=== PATIENT | female | born 1955 | race African-American/Black ===

== ENCOUNTER 2022-04-12 09:44 | Outpatient (CLI) | payer OTHER, SELFPAY ==
--- NOTE | 2022-04-12 16:04 | WPDPFTINT ---
PFT Procedure Performed PFT Procedure Performed Spirometry with Pre/Post Bronchodilator Plethysmography (Lung Vol) Diffusing Cap (DLCO) Flow Vol Loop PFT Interpretation This is a pulmonary function test with pre and post-bronchodilator spirometry, plethysmography and diffusing capacity. The test was performed and results interpreted in accordance with the 2019 and 2005 ATS/ERS Task Force guidelines respectively using the Global Lung Function Initiative-2012 reference equations. Patient demonstrated good effort and cooperation. Reproducibility criteria were met. The quality of the pre bronchodilator spirometry maneuver was Grade A and post bronchodilator spirometry maneuver was Grade A. Findings: Spirometry: The contour the inspiratory and expiratory flow tracing are normal. The pre bronchodilator FVC is 2.44 L, 91% predicted. The pre bronchodilator FEV1 is 1.90 L, 91% predicted. The pre bronchodilator FEV1: FVC ratio is 78%. The post bronchodilator FVC is 2.56 L, representing a 5% increase. The post bronchodilator FEV1 is 1.98 L, representing a 4% increase. The post bronchodilator FEV1: FVC ratio 77%. Plethysmography: The total lung capacity is 5.08, 107% predicted. The functional residual capacity is 2.66 L, 88% predicted. The residual volume is 2.46 L, 117% predicted. Diffusing capacity: The diffusion capacity unadjusted for hemoglobin and carboxyhemoglobin is 16.4, 76% predicted. The diffusing capacity adjusted for alveolar volume is 3.96, 94% predicted. Impression: The spirometry is normal without evidence of an obstructive abnormality. There is no significant improvement after inhaling a single dose of albuterol. The lung volumes are normal. The diffusing capacity is normal. There are no prior studies for comparison
== END 2022-04-12 09:45 | disposition home or self-care (01) ==
PROVIDERS: PCP Physician Assistant; Visit Provider Physician Assistant
DX: Z01.818 Encounter for other preprocedural examination (principal)
CPT/HCPCS: 94060; 94726; 94729

== ENCOUNTER 2022-11-16 10:00 | Outpatient (RCR) | payer OTHER, SELFPAY ==
--- NOTE | 2022-10-09 17:00 | STOPEVAL1 ---
Assessment and note entered by Paula Roque, PLATER APPRENTICE Assessment ST Clinical Summary VOICE EVALUATION Patient reported a hoarse, raspy voice for the past four to six months. She reports preence of a goiter and unsure if that is related to her voice issue. Patient spoke throughout this evaluation, rarely leaving much time for therapist to speak although she reports she does not talk frequently at home unless her children are visiting. Patient presents with moderate dysphonia characterized as a hoarse, raspy vocal quality. Vocal loudness is judged to be within normal range however patient's pitch range in general is 141- 198 with average at 163 Hz which is judged to be lower than expected for age and sex as female voice with average range equaling 165-255 Hz. Patient was instructed in the use of a vocal hygiene program to reduce negative vocal behaviors, and in a gastroesophageal reflux disease guidelines to reduce risk for reflux affecting vocal cords. Patient was also instructed in the use of exercises to facilitate vocal cord and overall relaxation. Patient will be seen one time per week for four weeks to address use of easy onset and easy breathing to reduce vocal cord tension in order to improve vocal quality. Plan of Care Interventions Treatment of Voice ST Services Indicated Yes Treatment Frequency and 1xwk/4weeks Duration These treatments will address the objective and functional deficits as defined above. The patient will be advanced safely and appropriately in order for the patient to progress towards his/her prior level of function. Additional exercises will be introduced and as well as a comprehensive home exercise program upon discharge, if needed, ?to ensure carryover of functional gains achieved in the clinic. This treatment plan has been reviewed and agreement upon by the patient.
--- NOTE | 2022-10-25 14:42 | PCSTNOTE ---
Patient has either rescheduled or cancelled evaluation appointments prior to initial evaluation and treatment sessions following the initial evaluation. She asked to come one time weekly and was scheduled as such but has been noncompliant with the frequency she asked for/scheduled for. She is on schedule for next Saturday which will essentially be four weeks/one month after the initial evaluation with no treatment in between. Therapist will contact patient at the beginning of next week to discuss attendance and possible discharge.
--- NOTE | 2022-11-16 12:27 | STOPDC ---
Assessment and note entered by Paula Roque CAUL FAT PULLER Evaluation Information Assessment Status Progress Reported Pain Level Pain Score 0: Self Report Assessment ST Clinical Summary Patient was seen for an initial voice evaluation on 10/08. She has returned for one follow up visit and then today. At the time of the initial evaluation, she was instructed in the use of a vocal hygiene program, guidelines to reduce/manage gastroesophageal reflux, and vocal/upper body relaxation techniques to reduce stress on the vocal cords. She was requested to attend sessions one time weekly however she reported she has difficulty with transportation. She was unable to attend again until 11/02. At that time she was instructed to use the yawn-sigh technique of inhalation, exhalation, then phonation for h words in order to reduce the stress on the vocal cords. Patient exhibited good ability to complete this upon her return for the last visit. On last visit, she was instructed in how to use the yawn- sign technique for other consonant-vowel words and she exhibited good ability to apply this technique to those. She was discharged with all goals achieved. Plan of Care ST Services Indicated No
== END 2022-12-24 09:59 | disposition home or self-care (01) ==
LOC: ANHST 10:00
PROVIDERS: PCP Physician Assistant; Visit Provider Otolaryngology
DX: R49.0 Dysphonia (principal)
CPT/HCPCS: 92507; 92524

== ENCOUNTER 2023-02-09 16:11 | Emergency (ER) | payer OTHER, SELFPAY ==
[2023-02-09] VITALS (15 sets, daily range): BP systolic 122–135; BP diastolic 72–90; PULSE 64–83; RESP 13–32; TEMP 36.6; O2SAT 95–100
--- NOTE | ~2023-02-09 | CT_ITS ---
EXAMINATION: CT abdomen pelvis w con DATE: 02/09/2023 17:49 INDICATION: LLQ pain TECHNIQUE: Computed tomography (CT) of the abdomen and pelvis was performed with 100 mL Omnipaque-350 intravenous contrast. Automated exposure control and iterative reconstruction technique were employe d. The dose-length product was 1764.40 mGy-cm. COMPARISON: None. FINDINGS: Lower thorax: Bibasilar scar/atelectasis. Moderate hiatal hernia. Liver: Normal. Biliary/Gallbladder: Gallbladder is absent. Mild intra and extrahepatic bile duct dilation, no obstru cting stone or mass. Pancreas: Mild atrophy Spleen: Normal. Adrenals:No mass. Kidneys: Simple left midpole cyst. Bilateral cortical atrophy. No suspicious mass, obstructing stone, or hydronephrosis. GI tract: No small or large bowel dilation. Normal appendix. Minimal diverticulosis without diverticu litis. Mesentery/Peritoneum: No ascites, mass, or free air. Retroperitoneum: No mass. Mild atherosclerotic abdominal aortic and/or arterial calcifications. Pelvis: Mild bladder wall thickening. 13 mm hypodensity in the uterine fundus. Soft Tissues: Small uncomplicated fat-containing umbilical hernia. Bones: No acute osseous finding. IMPRESSION: Mild intra and extrahepatic bile duct dilation, likely secondary to prior cholecystectomy, unless acc ompanied by right upper quadrant pain or biliary labs abnormalities. Mild bladder wall thickening may be secondary to inadequate distention or cystitis. 13 mm hypodensity in the uterine fundus, possible fibroid polyp or endometrial fluid, consider transa bdominal and transvaginal ultrasound for further evaluation. Reviewed, dictated and finalized at location K. IMPRESSION: Mild intra and extrahepatic bile duct dilation, likely secondary to prior matteo cystectomy, unless accompanied by right upper quadrant pain or biliary labs abn ormalities. Mild bladder wall thickening may be secondary to inadequate distention or cysti tis. 13 mm hypodensity in the uterine fundus, possible fibroid polyp or endometrial fluid, consider transabdominal and transvaginal ultrasound for further evaluati on.
[2023-02-09 17:04] LABS: Basophils Percent Auto 0.4 % (0.2-1.2); Eosinophils Absolute Auto 0.1 K/mm3 (0-0.3); Eosinophils Percent Auto 2.4 % (0-4.4); Hematocrit 37.5 % (37.0-47.0); Hemoglobin 12.3 g/dL (12.0-15.0); Immature Granulocyte Absolute 0.01 K/mm3 (0.00-0.031); Immature Granulocyte Percent A 0.2 % (0-0.5); Lymphocytes Absolute Auto 1.09 K/mm3 (0.9-3.2); Lymphocytes Percent Auto 24.2 % (18.3-44.2); Mean Corpuscular HGB Conc 32.8 g/dl (32-36); Mean Corpuscular Hemoglobin 27.3 pg (26-34); Mean Corpuscular Volume 83.1 fl (80-100); Mean Platelet Volume 9.3 fl (7.4-10.4); Monocytes Absolute Auto 0.6 K/mm3 (0.1-0.6); Monocytes Percent Auto 12.2 % (2.6-8.5); Neutrophils Absolute Auto 2.7 K/mm3 (1.3-6.7); Neutrophils Percent Auto 60.6 % (45.5-73.1); Platelet Count Result 281 k/mm3 (150-375); Red Blood Count 4.51 M/mm3 (4.2-5.4); Red Cell Distribution Width 15.3 % (11.5-14.5); White Blood Count 4.5 K/mm3 (4.5-10.0)
--- NOTE | 2023-02-09 17:08 | ED.GIBLEED ---
HPI - GI Bleed General Chief complaint: GI Bleed Stated complaint: blood in stool since Time Seen by Provider: 02/09/23 16:36 History of Present Illness HPI Narrative: 67-year-old female presented to the emergency department for evaluation of a GI bleed. Patient states she does take Eliquis for prior history of pulmonary embolism. Patient does have a prior history of hemorrhoids. Patient states that she did have some blood in her stool and also had a bowel movement on Saturday during which she noted she had some cold. Patient has not had any problems today and denies any bleeding. Patient did hold her Eliquis last night. Related Data Home Medications Medication Instructions Recorded Confirmed No Home Medications 09/02/22 09/02/22 Allergies Allergy/AdvReac Type Severity Reaction Status Date / Time Penicillins Allergy Hives Verified 02/09/23 16:22 Review of Systems Review of Systems: All systems reviewed & are unremarkable except as noted in HPI and below PMFSH Social History Social History (System 10/15/22 @ 15:23 by Kemi Velez) Smoking status: Never smoker Alcohol intake: never Substance use: never Lack of Transportation: YES Lack of Food: Never True Current Housing: I Have Housing Concerned About Future Housing: No Difficulty Paying Gas/Electric Bills: No Difficulty Paying for Meds: No Currently Unemployed: No Education: Don't Know Difficulty w/ Childcare or Family Care: No Exam Narrative: APPEARANCE: Well appearing, no pain, no distress, well-nourished. HEAD: normocephalic, atraumatic. EYES: PERRLA/EOMI, conjunctivae clear. NOSE: Normal no drainage NECK: Supple. No adenopathy, no masses. RESPIRATORY: Airway patent, respirations nonlabored. Clear to auscultation bilaterally, no rales, rhonchi, wheezing. CARDIOVASCULAR: Regular rate and rhythm without murmurs rubs or gallops. ABDOMINAL: Soft, nontender, nondistended, normal bowel sounds MUSCULOSKELETAL: Moves all extremities. Strength/ROM intact, No edema, No calf tenderness. Pelvic exam: No active vaginal bleeding NEURO: Alert. Cranial nerves II through XII intact. Grossly intact SKIN: Warm, dry. Normal Color Course Course Emergency Course: 67-year-old female presented to the emergency department for evaluation of blood in her stool. Patient has had no blood in her stool today. Patient is afebrile not tachycardic and normotensive. Patient was Hemoccult negative on the CH[facility]. Patient also had no vaginal bleeding Patient was offered a pelvic ultrasound for the morning or to have follow-up with her own CALCULATING MACHINE OPERATOR and patient preferred to have the ultrasound tomorrow morning and then have outpatient follow-up with her CALCULATING MACHINE OPERATOR on Saturday. Patient was not tachycardic patient was normotensive patient had a stable hemoglobin and patient no active vaginal bleeding and was Hemoccult negative. Vital Signs Vital signs: Vital Signs Temperature 97.8 F 02/09/23 16:13 Pulse Rate 72 02/09/23 16:13 Respiratory Rate 18 02/09/23 16:13 Blood Pressure 135/85 02/09/23 16:13 Pulse Oximetry 98 02/09/23 16:13 Oxygen Delivery Room Air 02/09/23 16:13 Temperature 97.8 F 02/09/23 16:13 Pulse Rate 75 02/09/23 18:15 Respiratory Rate 13 02/09/23 18:15 Blood Pressure 133/72 02/09/23 17:17 Pulse Oximetry 98 02/09/23 18:58 Oxygen Delivery Room Air 02/09/23 16:13 MDM - GI Bleed Differential Diagnosis Differential diagnosis: Likely hemorrhoids, Lower gastrointestinal hemorrhage, hematochezia, melena and anal fissure Lab Data Attestation: I reviewed the patient's lab results. 02/09/23 16:52 02/09/23 16:52 Labs: Lab Results 02/09/23 Range/Units 16:52 WBC 4.5 (4.5-10.0) K/mm3 RBC 4.51 (4.2-5.4) M/mm3 Hgb 12.3 (12.0-15.0) g/dL Hct 37.5 (37.0-47.0) % MCV 83.1 (80-100) fl MCH 27.3 (26-34) pg MCHC 32.8 (32-36) g/dl RDW 15.3 H (1
[2023-02-09 17:13] LABS: INR 1.1; Prothrombin Time 14.2 Seconds (11.1-14.7)
[2023-02-09 17:14] LABS: Alanine Aminotransferase 25 U/L (6-35); Albumin Level 4.1 g/dL (3.5-5.1); Alkaline Phosphatase 158 U/L (38-126); Anion Gap 7 mmol/L (8-16); Aspartate Amino Transferase 29 U/L (14-36); Bilirubin,Total 0.5 mg/dL (0.2-1.3); Blood Urea Nitrogen 14 mg/dL (7-17); Calcium 9.1 mg/dL (8.4-10.2); Carbon Dioxide 30 mmol/L (22-30); Chloride 102 mmol/L (98-107); Estimated CRCL calculation 65 ml/min; Estimated Glomerular Filt Rate > 60; Glucose 90 mg/dL (65-110); Partial Thromboplastin Time 28.3 SECONDS (22.3-36.8); Potassium 3.5 mmol/L (3.4-5.0); Sodium 139 mmol/L (137-145)
== END 2023-02-09 18:33 | disposition home or self-care (01) ==
PROVIDERS: Emergency Provider Emergency Medicine; PCP Physician Assistant
DX: N93.9 Abnormal uterine and vaginal bleeding, unspecified (principal); Z86.711 Personal history of pulmonary embolism; Z79.01 Long term (current) use of anticoagulants
CPT/HCPCS: 36415; 74177; 80053; 85025; 85610; 85730; 86850; 86900; 86901; 99284; Q9967

== ENCOUNTER 2023-02-10 07:10 | Outpatient (CLI) | payer OTHER, SELFPAY ==
--- NOTE | ~2023-02-10 | US_ITS ---
EXAMINATION: US pelvic complete w TV DATE: 02/10/2023 08:00 INDICATION: Abnormal uterine bleeding Comparison:No prior studies for comparison. TECHNIQUE: Multiple transabdominal and endovaginal sonographic images of the pelvis performed. FINDINGS: The uterus measures 8.5 x 5.5 x 5.5 cm. There are multiple uterine fibroids of the uterus, largest measuring 1.8 cm located in the endometrium, submucosal. There is a cyst of the endometrium m easuring 1.6 x 1.4 x 0.6 cm. The endometrial complex measures 9.6 mm. The ovaries are not visualized. There is no free fluid in the pelvis. There are no abnormal masses seen on either side. IMPRESSION: 1. Thickened endomtrial complex. The differential diagnosis includes endometrial hyperplasia, polyp a nd carcinoma. Biopsy is recommended. 2: Fibroid uterus. At least one of which is submucosal. Largest fibroid measures 1.8 x 1.7 x 1.5 cm. Reviewed, dictated and finalized at location A. IMPRESSION: 1. Thickened endomtrial complex. The differential diagnosis includes endometria l hyperplasia, polyp and carcinoma. Biopsy is recommended. 2: Fibroid uterus. At least one of which is submucosal. Largest fibroid measure s 1.8 x 1.7 x 1.5 cm.
== END 2023-02-10 07:11 | disposition home or self-care (01) ==
PROVIDERS: PCP Physician Assistant; Visit Provider Physician Assistant
DX: N93.9 Abnormal uterine and vaginal bleeding, unspecified (principal); D25.9 Leiomyoma of uterus, unspecified
CPT/HCPCS: 76830; 76856

== ENCOUNTER 2023-03-05 10:54 | Emergency (ER) | payer OTHER, SELFPAY ==
[2023-03-05 10:55] VITALS: BP 160/82; PULSE 84; RESP 16; TEMP 36.4; O2SAT 97
--- NOTE | 2023-03-05 11:15 | ECG_ITS ---
Measurements Intervals [facility] Rate: 72 P: 53 TN: 199 QRS: -14 QRSD: 96 T: 30 QT: 377 QTc: 415 Interpretive Statements SINUS RHYTHM NO PREVIOUS ECG AVAILABLE FOR COMPARISON Electronically Signed On 03-05-2023 14:40:49 CDT by Gissel Irby M.D.
--- NOTE | 2023-03-05 12:03 | ED.DIZZY ---
HPI - Dizziness General Chief Complaint: Dizziness <Jacob Edmond PA-C - Last Filed: 03/05/23 18:30> Stated Complaint: dizzy <Jacob Edmond PA-C - Last Filed: 03/05/23 18:30> Time Seen by Provider: 03/05/23 11:02 <Jacob Edmond PA-C - Last Filed: 03/05/23 18:30> Source: patient <PEEWEE Kraft Last Filed: 03/05/23 18:30> Mode of arrival: ambulatory <PEEWEE Kraft Last Filed: 03/05/23 18:30> Limitations: no limitations <PEEWEE Kraft Last Filed: 03/05/23 18:30> History of Present Illness HPI Narrative: This is a 67-year-old female with PMH of who presents to the ED with chief complaint of dizziness onset yesterday afternoon. She states it is intermittent in nature and seems to be worse when she puts her head in certain positions. She states it is worse when she gets up to walk. She states she has been able to walk all right with the use of her cane as normal. She reports it feels like the room is spinning. Denies any lightheadedness or syncope. Denies any head injury, falls, numbness, weakness, speech problems, dysphagia, drooling. <Jacob Edmond PA-C - Last Filed: 03/05/23 18:30> Related Data Allergies/Adverse Reactions: Allergies Allergy/AdvReac Type Severity Reaction Status Date / Time Penicillins Allergy Hives Verified 02/09/23 16:22 <PEEWEE Kraft Last Filed: 03/05/23 18:30> Review of Systems Review of Systems: All systems as dictated in HPI <PEEWEE Kraft Last Filed: 03/05/23 18:30> [facility] Social History Social History: Social History (System 10/15/22 @ 15:23 by Kemi Velez) Smoking status: Never smoker Alcohol intake: never Substance use: never Lack of Transportation: YES Lack of Food: Never True Current Housing: I Have Housing Concerned About Future Housing: No Difficulty Paying Gas/Electric Bills: No Difficulty Paying for Meds: No Currently Unemployed: No Education: Don't Know Difficulty w/ Childcare or Family Care: No <Jacob Edmond PA-C - Last Filed: 03/05/23 18:30> Exam Narrative: GENERAL: Well-appearing, well-nourished, and in no acute distress. HEAD: Normocephalic, atraumatic. EYES: PERRLA and EOMI. ENT: Nares clear, no rhinorrhea or epistaxis. Mucous membranes moist. Oropharynx without tonsillar hypertrophy exudate or other lesions. NECK: Supple. No adenopathy or masses. CHEST: No respiratory distress. Clear to auscultation. No wheezes rales or rhonchi HEART: Regular rate and rhythm. No murmur heard. Normal peripheral pulses. ABDOMEN: Soft, nontender, nondistended, normal active bowel sounds. MSK: Normal range of motion. No edema. SKIN: Warm, dry, no rash. NEURO: Alert and oriented x3. No focal deficits. Cranial nerves II through XII intact. No speech deficit. Coordination intact with [id number] testing. Negative pronator drift. 5 out of 5 strength and sensation in the upper and lower extremities. Head impulse test recreates vertigo symptoms with leftward impulse. She exhibits corrective saccade when turning to the left. Head impulse test to the right is unremarkable. No nystagmus No skew deviation PSYCH: Normal mood and affect. <Jacob Edmond PA-C - Last Filed: 03/05/23 18:30> Course Course Emergency Course: Reevaluation 1453: Patient is still feeling dizzy. She states that meclizine may be helped a little bit. <Jacob Edmond PA-C - Last Filed: 03/05/23 18:30> FISH CUTTING MACHINE OPERATOR/PA Physician Supervision For this patient encounter, I reviewed the FISH CUTTING MACHINE OPERATOR or PA documentation, treatment plan, and medical decision making; and I had [id number] time with this patient. <Crow Yan MD - Last Filed: 03/05/23 18:31> Vital Signs Vital signs: Vital Signs Temperature 97.5 F L 03/05/23 10:55 Pulse Rate 84 03/05/23 10:55 Respiratory Rate 16 03/05/23 10:55 Blood Pressure 160/82 H 03/05/23 10:55 Pulse Oximetry 97 03/05/23 10:55
[2023-03-05 12:38] VITALS: BP 140/78; PULSE 64
[2023-03-05 12:41] VITALS: BP 157/102; PULSE 70
[2023-03-05 12:43] VITALS: BP 162/97; PULSE 85
[2023-03-05 12:43] LABS: Basophils Percent Auto 0.4 % (0.2-1.2); Eosinophils Absolute Auto 0.1 K/mm3 (0-0.3); Eosinophils Percent Auto 2.6 % (0-4.4); Hematocrit 36.9 % (37.0-47.0); Hemoglobin 11.9 g/dL (12.0-15.0); Immature Granulocyte Absolute 0.01 K/mm3 (0.00-0.031); Immature Granulocyte Percent A 0.2 % (0-0.5); Lymphocytes Absolute Auto 0.89 K/mm3 (0.9-3.2); Lymphocytes Percent Auto 17.7 % (18.3-44.2); Mean Corpuscular HGB Conc 32.2 g/dl (32-36); Mean Corpuscular Hemoglobin 27.2 pg (26-34); Mean Corpuscular Volume 84.2 fl (80-100); Mean Platelet Volume 9.4 fl (7.4-10.4); Monocytes Absolute Auto 0.6 K/mm3 (0.1-0.6); Monocytes Percent Auto 11.5 % (2.6-8.5); Neutrophils Absolute Auto 3.4 K/mm3 (1.3-6.7); Neutrophils Percent Auto 67.6 % (45.5-73.1); Platelet Count Result 262 k/mm3 (150-375); Red Blood Count 4.38 M/mm3 (4.2-5.4); Red Cell Distribution Width 15.2 % (11.5-14.5)
[2023-03-05 12:54] LABS: Alanine Aminotransferase 27 U/L (6-35); Albumin Level 3.9 g/dL (3.5-5.1); Alkaline Phosphatase 152 U/L (38-126); Anion Gap 3 mmol/L (8-16); Aspartate Amino Transferase 32 U/L (14-36); Bilirubin,Total 0.4 mg/dL (0.2-1.3); Blood Urea Nitrogen 13 mg/dL (7-17); Carbon Dioxide 29 mmol/L (22-30); Chloride 104 mmol/L (98-107); Estimated CRCL calculation 61 ml/min; Estimated Glomerular Filt Rate > 60; Glucose 80 mg/dL (65-110); INR 1.1; Prothrombin Time 14.2 Seconds (11.1-14.7); Sodium 136 mmol/L (137-145)
[2023-03-05] MEDS: MECLIZINE HCL 25 MG TABLET PO (13:45)
== END 2023-03-05 16:02 | disposition home or self-care (01) ==
PROVIDERS: Emergency Provider Physician Assistant; PCP Physician Assistant
DX: H81.399 Other peripheral vertigo, unspecified ear (principal)
CPT/HCPCS: 36415; 80053; 85025; 85610; 93005; 99283; A9270

== ENCOUNTER 2024-11-19 17:27 | Emergency (ER) | payer OTHER, SELFPAY ==
--- NOTE | ~2024-11-19 | CT_ITS ---
CTA chest PE protocol Ordering provider: Crow Yan MD History: 69 years Female with . Hemoptysis x3 days, on Eliquis . Comparison: None. Technique: CT angiogram chest was performed following timed intravenous injection of contrast. Thin s lice axial images and reformatted coronal images were obtained. Three dimensional reformatted images of the chest were also obtained using a Eve workstation. . Automated exposure control and iterati ve reconstruction technique were employed. The dose-length product was 858.99 mGy-cm. 100 mL Omnipaqu e 350 was given IV. Findings: PULMONARY ARTERIES: No pulmonary embolus. VISUALIZED THORACIC INLET: Normal. MEDIASTINUM: Aorta/coronary arteries: The thoracic aorta is normal. Heart/other: The heart is not enlarged. Lymph nodes: No mediastinal or hilar adenopathy. Right hilar lymph node enlargement is seen measuring 1.2 x 2.6 cm. LUNGS: Focal pneumonia is seen medially in the right lower lobe superior segment. Subsegmental atelectasis i n the right upper lobe. No pulmonary nodules or masses. No effusions. No pneumothorax. VISUALIZED UPPER ABDOMEN: Large sliding hiatus hernia. Status post cholecystectomy. Small left renal cyst. Slightly prominent CBD measuring 1.3 cm. Otherwise, the visualized upper abdomen is normal. MUSCULOSKELETAL: Soft tissues: The superficial soft tissues are normal. Bones: Age appropriate degenerative changes of the spine. IMPRESSION: 1. No pulmonary embolism. 2. Large sliding hiatus hernia. 3. Focal pneumonia in the right lower lobe medially. Follow-up to exclude underlying nodule is advis ed. 4. Right hilar lymph node enlargement. Reviewed, dictated and finalized at location A. IMPRESSION: 1. No pulmonary embolism. 2. Large sliding hiatus hernia. 3. Focal pneumonia in the right lower lobe medially. Follow-up to exclude unde rlying nodule is advised. 4. Right hilar lymph node enlargement.
--- NOTE | ~2024-11-19 | XR_ITS ---
CHEST RADIOGRAPH, PA AND LATERAL CLINICAL HISTORY: chest pain, coughing blood clots . COMPARISON: None available TECHNIQUE: PA and lateral views of the chest. FINDINGS Large hiatal hernia with an air-fluid level. The remainder of the cardiomediastinal silhouette is otherwise unremarkable. The lungs are clear. IMPRESSION: No focal infiltrate or effusion. Reviewed, dictated and finalized at location A.
[2024-11-19 17:29] VITALS: BP 158/86; PULSE 80; RESP 17; TEMP 36.7; O2SAT 98
--- OUTSIDE RECORDS SUMMARY | 2024-11-19 17:30 | XMS_ITS ---
Author Organization [facility] [address] Address [address] [place] [address] Phone Care Team Providers Care Hoop Expander Name Role Phone Leandra Helms Primary Care Provider + Active Problems Problem Noted Date Diagnosed Date Failure of left total hip arthroplasty Chest pain, unspecified 01/17/2024 Shortness of breath 01/17/2024 Normal hysteroscopy 11/19/2023 Dystrophia unguium 10/08/2023 Peripheral venous insufficiency 10/08/2023 Endometrial polyp 08/26/2023 Supraventricular tachycardia 06/26/2023 Postmenopausal bleeding 02/25/2023 Obstructive sleep apnea syndrome 12/03/2022 Stage 3a chronic kidney disease 08/29/2021 Diabetes mellitus 08/28/2021 Gastroesophageal reflux disease 08/28/2021 History of subtotal thyroidectomy 08/28/2021 Varicose veins of both lower extremities 022 Multiple joint pain 03/16/2021 Onychomycosis 03/16/2021 Urinary incontinence 03/16/2021 Anemia 01/12/2021 Hiatus hernia with obstruction 01/12/2021 H/O thyroidectomy 12/21/2020 Pulmonary embolism 12/20/2020 Prediabetes 05/29/2018 Total knee replacement status, left 05/09/2018 Dizziness 10/10/2017 History of left breast cancer 08/29/2017 Bipolar 1 disorder 06/20/2017 High blood pressure 06/20/2017 Depression with anxiety 06/20/2017 Genital herpes simplex 06/20/2017 Hyperlipidemia 06/20/2017 Mild intermittent asthma without complication BMI 45.0-49.9, adult 06/20/2017 Osteoarthritis of multiple joints 06/20/2017 Schizoaffective disorder 06/20/2017 Seasonal allergic rhinitis 06/20/2017 Vitamin D deficiency 06/20/2017 Intellectual functioning disability 01/30/2017 Asthma 08/02/2016 Hypothyroidism (acquired) 08/02/2016 Pain in left knee 05/09/2016 Polyp of colon 05/09/2016 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 Past Treatment and Therapy Plans No past plan information found. Lifetime Dose Tracking * Chemical Lifetime Dose Automatic Entry Manual Entr y Fluoro Time 6.7 minutes 6.7 minutes 0 minutes Air kerma at the reference point (Ka,r) 295.7 mGy 2 95.7 mGy 0 mGy
--- OUTSIDE RECORDS SUMMARY | 2024-11-19 17:30 | XMS_ITS | Clinical Summary ---
Author Organization [facility] [place] [facility] [employer] [facility] Address [address] [facility] [address] [place] [address] Phone Care Team Providers Care Test Engineering Technician Name Role Phone Leandra Helms PA-C Primary Care Provider Allergies Active Allergy Reactions Criticality Noted Date Comments Acetaminophen Nausea,Vomiting High 03/16/2021 Egg-Derived Products Rash Low 06/20/2017 Ibuprofen Vomiting High 03/16/2021 Influenza Vaccines Other (see comments) 018 Egg allergy Peanut Butter Flavoring Agent (Non-Screening) Rash Medium 04/30/2018 PEANUT BUTTER PEANUT BUTTER Penicillins Rash,Other (see comments) Low 08/06/2012 Medications * This document contains information received from the source organization and may not represent a complete record from that organization. albuterol HFA (PROVENTIL HFA;VENTOLIN HFA) 108 (90 Base) MCG/ACT inhaler albuterol sulfate HFA 90 mcg/actuation aerosol inhaler INHALE 2 PUFFS BY MOUTH FOUR TIMES DAILY NEEDED Active apixaban (ELIQUIS) 5 MG tablet Take 5 mg by mouth in the morning and 5 mg in the evening. 1 Active busPIRone (BUSPAR) 15 MG tablet Take 15 mg by mouth in the morning and 15 mg in the evening. 1 Active carvedilol (COREG) 6.25 MG tablet Take 6.25 mg by mouth in the morning and 6.25 mg in the evening. Take with meals. 3 Active hydroCHLOROthia zide (MICROZIDE) 12.5 MG capsule Take 12.5 mg by mouth 1 (one) time each day in the morning Active Levothyroxine Sodium 175 MCG capsule Take 175 mcg by mouth 1 (one) time each day 9 Active losartan (COZAAR) 100 MG tablet Take 100 mg by mouth 1 (one) time each day 3 Active QUEtiapine (SEROquel) 50 MG tablet Take 100 mg by mouth every night 9 Active metFORMIN (GLUCOPHAGE) 500 MG tablet Take 1 tablet (500 mg total) by mouth in the morning and 1 tablet (500 mg total) in the evening. Take with meals. 60 tablet 11 2 05/28/20 29 Active omeprazole (PriLOSEC) [address] capsule Take 1 capsule (20 mg total) by mouth if needed (prn) 90 capsule 1 4 Active Active Problems Problem Noted Date Diagnosed Date Malignant neoplasm of breast in remission 2023 Obstructive sleep apnea syndrome 04/14/2024 Overview (04/14/2024): Unable to tolerate CPAP. Stage 3a chronic kidney disease 08/29/2021 Body mass index 40+ - severely obese 08/29/2021 Osteoarthritis 08/29/2021 Diabetes mellitus 08/28/2021 Gastroesophageal reflux disease 08/28/2021 Essential (primary) hypertension 08/28/2021 History of subtotal thyroidectomy 08/28/2021 Anemia 01/12/2021 Pulmonary embolism 12/20/2020 Bipolar I disorder 06/20/2017 Hyperlipidemia 06/20/2017 Schizoaffective disorder 06/20/2017 Vitamin D deficiency 06/20/2017 Acquired hypothyroidism 08/02/2016 Chronic obstructive pulmonary disease 06/03/2013 Immunizations Immunization Administration Dates Next Due Pneumococcal Conjugate 13-Valent 11/27/2018 Family History Medical History Relation Comments Anemia Son Sickle cell anemia Son Relation Status Comments Son Alive Social History Tobacco Use Types Packs/Day Years Used Date Smoking Tobacco: Former Cigarettes Q uit: 2018 Smokeless Tobacco: Never Tobacco Cessation:Counseling Given: Not Answered Alcohol Use Standard Drinks/Week Comments Never 0 (1 standard drink = 0.6 oz pur e alcohol) Comments Unknown Sex and Gender Information Value Date Recorded Sex Assigned at Not on file Legal Sex Female 12:05 PM EST Gender Identity Not on file Sexual Orientation Not on file Last Filed Vital Signs Vital Sign Reading Time Taken Comments Blood Pressure 110/70 04/14/2024 10:37 AM CDT Pulse 74 04/14/2024 10:37 AM CDT Temperature 36.1 C (97 F) 04/14/2024 10:37 AM CDT Respiratory Rate 18 04/14/2024 10:37 AM CDT Oxygen Saturation 98% 04/14/2024 10:37 AM CDT Inhaled Oxygen Concentration - - Weight 116 kg (256 lb) 04/14/2024 10:37 AM CDT Height 170.2 cm (5' 7 ) 10/01/2023 11:10 AM CDT Body Mass Index 40.1 10/01/2023 11:10 AM CDT Plan of Treatment Upcoming Encounters Date Type Department Care Team (Late st Contact Info) Description 04/20/2025 10:00 AM CDT Office Visit [facility], [facility] [address] [facility] [address] [place] [phone] Apollo Gómez MD [address] [facility] 1 [place] [address] Health Maintenance Due Date Last Done Comments Breast Cancer Screening 1955 Colorectal Cancer Screening: Annual FOBT 2002 Colorectal Cancer Screening: Colonoscopy 2002 Colorectal Cancer Screening: Sigmoidoscopy 2002 Pneumococcal Vaccine: 50+ Years (2 of 2 - PPSV23) 01/22/2019 11/27/2018 Diabetes: Ophthalmology Exam 07/07/2021 Diabetes: Pedal Pulse Checked 07/07/2021 Diabetes: Sensory Foot Exam 07/07/2021 Diabetes: Visual Foot Exam 07/07/2021 Diabetes: Hemoglobin A1C 08/24/2023 023, 01/28/2023, 04/30/2022, Additional history exists Hepatitis B Vaccine Aged Out No longe r eligible based on patient's age to complete this topic Procedures Procedure Name Priority Date/Time Associated Diagnosis Comments HEMOGLOBIN A1C Routine 05/24/2023 Stage 3a chronic kidney disease (HCC) Essential (primary) hypertension Type 2 diabetes mellitus without complication (HCC) Simple chronic bronchitis (HCC) Body mass index 40+ - severely obese <45.0-49.9> (HCC) Bipolar I disorder (HCC) Primary generalized osteoarthritis Vitamin D deficiency, not otherwise specified Gastroesophageal reflux disease Schizoaffective disorder, bipolar type (HCC) Pulmonary embolism, not otherwise specified (HCC) from Last 3 Months or Most Recently Relevant to Health Maintenance Results * Hemoglobin A1c (05/24/2023) Hemoglobin A1C 5.4 PRINT /EXTERNAL (NON-INTERFACE D LABS) Blood (Blood, Venous) 05/24/2023 us Apollo Gómez MD LAB BLOOD ORDERABLES Final R esult PRINT/EXTERNAL (NON-INTERFACED LABS) from Last 3 Months or Most Recently Relevant to Health Maintenance Insurance [place], [place] [id number] [place] [address] Care Teams Test Engineering Technician Relationship Specialty Start Date End Date Leandra Helms PA-C [facility] [place] [address] PCP - General Physician Social Service Technician 06/27/21
--- OUTSIDE RECORDS SUMMARY | 2024-11-19 17:30 | XMS_ITS | Encounter Summary ---
Author Organization [facility] Address [address] [facility] [place] [address] Care Team Providers Care Conduit Helper Name Role Phone Leandra Helms PA-C Primary Care Provider Encounter Details Date Type Department Care Team (Late st Contact Info) Description 04/04/2022 Telephone [facility], Critical Care [facility] Medicine [address] [facility] [place] [phone] Kathy Lopez MD [address] [place] [address] Social History Tobacco Use Types Packs/Day Years Used Date Smoking Tobacco: Former Cigarettes Smokeless Tobacco: Never PHQ-2 Answer Date Recorded PHQ2 TOTAL SCORE 0 07/19/2021 Comments Unknown Sex and Gender Information Value Date Recorded Sex Assigned at Not on file 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 Lopez Reason for call: Just an FYI Ms. Yandy Bustamante won't make today's appt, her transportation did not show. I didn't touch because I know the charts are done. She's reschedled. Patient Call Back number: [phone] documented in this encounter Plan of Treatment Upcoming Encounters Date Type Department Care Team (Late st Contact Info) Description 05/19/2025 9:30 AM CDT Office Visit [facility] - Pulmonology [address] [facility] [place] [address] Jo Carrillo, DO [facility] DIV OF [facility] [place] [address] documented as of this encounter Visit Diagnoses Not on filedocumented in this encounter Care Teams Conduit Helper Relationship Specialty Start Date End Date Leandra Helms PA-C [address] [place] [phone] PCP - General 05/31/21 documented as of this encounter
--- OUTSIDE RECORDS SUMMARY | 2024-11-19 17:30 | XMS_ITS | Clinical Summary ---
Author Organization [facility] Address [facility] [place] [address] Care Team Providers Care Physical Therapy Nurse Name Role Phone Leandra Helms PA-C Primary Care Provider Allergies Active Allergy Reactions Criticality Noted Date Comments Egg-Derived Products Other (see comment) 2021 Egg allergy Influenza Vaccines Other (see comment) 05/29/20 Egg allergy Peanut-Containing Drug Products Nausea and Vomiting 10/10/2021 Penicillins Rash Low 10/02/2021 Medications buPROPion XL 300 MG 24 hr tablet Take 300 mg by mouth daily. Active losartan 100 MG tablet Take 100 mg by mouth daily. Active ipratropium 0.02 % nebulizer solution Take 500 mcg by nebulization 4 (four) times daily. Active hydroCHLOROthiazide 12.5 MG capsule Take 12.5 mg by mouth every morning. Active busPIRone 15 MG tablet Take 15 mg by mouth 2 (two) times daily. Active metFORMIN 500 MG tablet Take 500 mg by mouth 2 (two) times daily with meals. Active apixaban 5 MG tablet Take 5 mg by mouth 2 (two) times daily. Active QUEtiapine XR 50 MG 24 hr tablet Take 50 mg by mouth daily. Active aspirin 81 MG chewable tablet Chew 81 mg by mouth daily. Active acetaminophen 325 MG tablet Take 650 mg by mouth 2 (two) times daily as needed for Pain. Active acyclovir 800 MG tablet acyclovir 800 mg tablet TAKE 1 TABLET BY MOUTH DAILY 02/24/20 21 Active albuterol sulfate HFA 108 (90 Base) MCG/ACT inhaler Inhale 2 puffs into the lungs 4 (four) times daily as needed. 05/19/20 21 Active atorvastatin 20 MG tablet Take 20 mg by mouth daily. 09/20/19 22 Active carvedilol 6.25 MG tablet Take 6.25 mg by mouth 2 (two) times daily. 07/21/20 Active omeprazole 40 MG capsule omeprazole 40 mg capsule,delayed release 03/28/20 Active iron polysaccharides 150 MG capsule Take by mouth daily. 09/27/19 22 Active Blood Glucose Monitoring Suppl (ONE TOUCH ULTRA 2) w/Device Kit USE TO TEST TWICE DAILY 11/18/19 Active CoachSeekTOUCH ULTRA test strip 2 (two) times daily. 05/19/20 21 Active hydrOXYzine 25 MG capsule hydroxyzine pamoate 25 mg capsule TK 1 C PO TID PRN Active levothyroxine 200 MCG tablet TAKE 1 TABLET BY MOUTH EVERY DAY BEFORE A MEAL 10/03/19 Active Active Problems No known active problems Social History Tobacco Use Types Packs/Day Years Used Date Smoking Tobacco: Never Smokeless Tobacco: Never Alcohol Use Standard Drinks/Week Comments Never 0 (1 standard drink = 0.6 oz pur e alcohol) Comments No Sex and Gender Information Value Date Recorded Sex Assigned at Not on file Legal Sex Female 8:35 AM CDT Gender Identity Not on file Sexual Orientation Not on file Last Filed Vital Signs Vital Sign Reading Time Taken Comments Blood Pressure 127/79 10/10/2021 12:30 PM CDT Pulse 84 10/10/2021 12:30 PM CDT Temperature 36.4 C (97.6 F) 10/10/2021 12:19 PM CDT Respiratory Rate 16 10/10/2021 12:30 PM CDT Oxygen Saturation 95% 10/10/2021 12:30 PM CDT Inhaled Oxygen Concentration - - Weight 132.5 kg (292 lb) 10/02/2021 3:43 PM CDT Height 170.2 cm (5' 7 ) 10/02/2021 3:43 PM CDT Body Mass Index 45.73 10/02/2021 3:43 PM CDT Plan of Treatment Health Maintenance Due Date Last Done Comments Hepatitis C 10/16/1971 DTaP, Tdap and Td Vaccines ( 1 - Tdap) 1972 Mammogram Screening 1993 Zoster Vaccines (1 of 2) 10/16/2003 Annual Medicare Wellness Visit 2018 Dexa Scan (General) 2018 COVID-19 Vaccine (2023-2 5 season) 2024 09/26/2021, 02/15/2021, 01/17/2021 RSV Immunization or 60+ Years (1 - 1-dose 75+ series) 2028 Colorectal Cancer Screening Colonoscopy (10 Years) 10/11/2031 10/10/2021, 10/10/2021 Pneumococcal Vaccine: 50+ Years Completed 09/04/2021, 11/27/2018 Meningococcal B Vaccine Aged Out No l onger eligible based on patient's age to complete this topic Meningococcal Vaccine Aged Out No oseas bryan eligible based on patient's age to complete this topic RSV Immunizations Under 20 Months Aged Out No longer eligible b ased on patient's age to complete this topic Procedures Procedure Name Priority Date/Time Associated Diagnosis Comments COLONOSCOPY Routine 10/10/2021 12:19 PM CDT from Last 3 Months or Most Recently Relevant to Health Maintenance Results * Colonoscopy (10/10/2021 12:19 PM CDT) Jay Jon MD - 10/10/2021 12:19 PM CDT Jay Mora MD 10/10/2021 12:27 PM JAY MORA MD, FACG, FACP COLONOSCOPY and EGD 10/10/2021 EGD INDICATION: Abnormal imaging-digestive, iron deficiency anemia. POST-OP: 10 cm hiatal hernia with Miguel erosions. SEDATION: Per Anesthesia With the patient in the left lateral decubitus position, the Olympus [id number] endoscope was used to easily intubate the esophagus and advanced to the third duodenum. Careful inspection of the mucosa was made upon insertion and withdrawal of the endoscope with retroflexion in the stomach. Findings: Esophagus: SC Jx @ 35 cm. The esophagus is normal. No esophagitis, stricture, mass or Beltran's. Stomach: 10 cm hiatal hernia with linear erythema and erosions consistent with Miguel erosions in the fundus, body. The antrum is normal. No ulceration, AVM or malignancy. Duodenum: Normal in the bulb, second and third duodenum. COLONOSCOPY INDICATION: Personal history of colon polyps. POST-OP: Normal. PREP: Good. With the patient in the left lateral decubitus position, the Olympus [id number] colonoscope was introduced into the rectum and advanced easily to the Terminal Ileum. Careful inspection of the mucosa was made upon insertion and withdrawal of the endoscope. FINDINGS: Terminal ileum: distal 5 cm normal. Cecum, Ascending colon, Transverse colon, Descending colon, Sigmoid colon and Rectum including retroflexion normal. No masses, polyps, AVMs, colitis or diverticulosis seen. No complications, blood loss or implants. ASSESSMENT AND PLAN: A. Iron deficiency anemia on aspirin and Eliquis: - Likely due in part to 10 cm hiatal hernia with Miguel erosions - Patient has been seen by Dr. Sheela Sal (Surgery) for consideration of repair - Continue PPI and iron B. Abnormal imaging-digestive: - Large HH on CT - Confirmed on EGD C. Personal history of colon polyps: - Normal colonoscopy 10-10-2021 - Screening colonoscopy in 10 years Thank you for allowing me to care for your patient. She will follow-up with KAYLA Helms and Dr. Sheela Sal. Jay Mora M.D. KAYLA Helms; Dr. Sheela Sal. Jay Mora MD GI PROCEDURE ORDERABLES Fin al Result from Last 3 Months or Most Recently Relevant to Health Maintenance Insurance [facility] Care Teams Physical Therapy Nurse Relationship Specialty Start Date End Date Leandra Helms PA-C [address] [place] [phone] PCP - General NURSE PRACTITIONER 10/10/21
--- OUTSIDE RECORDS SUMMARY | 2024-11-19 17:30 | XMS_ITS | Encounter Summary ---
Author Organization [facility] Address [address] [facility] [place] [address] Care Team Providers Care Polisher Sand Name Role Phone Leandra Helms PA-C Primary Care Provider Encounter Details Date Type Department Care Team (Late Contact Info) Description 11/12/2024 Orders Only [facility] - Pulmonology [address] [place] [phone] Shabana Gonzalez, RN Social History Tobacco Use Types Packs/Day Years Used Date Smoking Tobacco: Former Cigarettes Smokeless Tobacco: Never PHQ-2 Answer Date Recorded PHQ2 TOTAL SCORE 0 07/19/2021 Comments No Sex and Gender Information Value Date Recorded Sex Assigned at Not on file 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 Gender Identity Not on file Sexual Orientation Not on file documented as of this encounter Plan of Treatment Upcoming Encounters Date Type Department Care Team (Late Contact Info) Description 05/19/2025 9:30 AM CDT Office Visit [facility] - Pulmonology [address] [place] [phone] Jo Carrillo, DO [address] [place] [address] OF [facility] [place] [address] documented as of this encounter Visit Diagnoses Not on filedocumented in this encounter Care Teams Polisher Sand Relationship Specialty Start Date End Date Leandra Helms PA-C [address] [place] [phone] PCP - General 05/31/21 documented as of this encounter
--- OUTSIDE RECORDS SUMMARY | 2024-11-19 17:30 | XMS_ITS | Encounter Summary ---
Author Organization [facility] [employer] [facility] Address [address] [phone] Phone Care Team Providers Care District Director Name Role Phone Leandra Helms PA-C Primary Care Provider [phone] Reason for Visit * Reason Onset Date Comments Med Refill 04/14/2024 Encounter Details Date Type Department Care Team (Late st Contact Info) Description 04/14/2024 Refill [place] [facility] [place] [address] [phone] Kristal Girard CMA [address] [facility] 1 [place] [address] Social History Tobacco Use Types Packs/Day Years Used Date Smoking Tobacco: Former Cigarettes Q uit: 2018 Smokeless Tobacco: Never Alcohol Use Standard Drinks/Week [...] Description 04/20/2025 10:00 AM CDT Office Visit [place] [employer] [facility] [address] [facility] 15 [place] [address] Apollo Gómez MD [address] [facility] 1 [place] [address] documented as of this encounter Visit Diagnoses Not on filedocumented in this encounter Care Teams District Director Relationship Specialty Start Date End Date Leandra Helms PA-C [address] [place] [phone] PCP - General Physician Gum Cook 06/27/21 documented as of this encounter
--- OUTSIDE RECORDS SUMMARY | 2024-11-19 17:31 | XMS_ITS | Referral Summary ---
Author Organization [facility] [employer] Address [address] [place] [address] Phone Care Team Providers Care Pc Technician Name Role Phone Leandra Helms Primary Care Provider + Allergies Active Allergy Reactions Criticality Noted Date Comments Acetaminophen Nausea only,Vomiting Medium 03/16/2021 Broccoli Flatulence Low 02/25/2023 Codeine Nausea And Vomiting,Nausea only Low 02/20/2023 Egg Derived Shortness of breath,Rash High 05/21/2016 Breathing Difficulty Ibuprofen Vomiting High 03/16/2021 Influenza Virus Vaccines Other (See comments) Low 05/29/2018 Egg allergy Peanut Hives High 03/16/2021 Peanut Butter Flavor Rash Medium 04/30/2018 PEANUT BUTTER Penicillin Rash Medium 08/06/2012 Penicillin G Rash Medium Medications atorvastatin (LIPITOR) 20 mg tablet take 1 tablet (20MG) by oral route hs 0 3 Active Additional Information Patient not taking.Informant: Self, Reported on 01/17/2024 losartan (COZAAR) 100 mg tablet take 1 tablet (100MG) by oral route every day 0 3 Active Additional Information Patient taking differently: 75 mg oral Nightly, Indications: hypertension, Informant: Self, Reported on 11/08/2023 albuterol HFA (PROVENTIL HFA,VENTOLIN HFA,PROAIR HFA) 90 mcg/actuation inhalerIndicati ons:Acute Asthma Attack Inhale 2 puffs 4 (four) times a day as needed for shortness of breath or wheezing 1 Active Eliquis 5 mg tabletIndicatio ns:Venous Thrombosis Take 1 tablet (5 mg total) by mouth 2 (two) times a day 1 Active blood glucose diagnostic strip USE TO TEST TWICE DAILY 1 Active hydroCHLOROthia zide (MICROZIDE) 12.5 mg capsuleIndicati ons:hypertensio n Take 1 capsule (12.5 mg total) by mouth nightly Active OneTouch Delica Plus Lancet 30 gauge misc USE TO TEST TWICE DAILY 1 Active metFORMIN (GLUCOPHAGE) 500 mg tabletIndicatio ns:type 2 diabetes mellitus Take 1 tablet (500 mg total) by mouth 2 (two) times a day 1 Active busPIRone (BUSPAR) 15 mg tabletIndicatio ns:Generalized Anxiety Disorder Take 1 tablet (15 mg total) by mouth 2 (two) times a day 3 Active carvediloL (COREG) 6.25 mg tabletIndicatio ns:hypertension Take 2 tablets (12.5 mg total) by mouth 2 (two) times a day with meals 3 Active meclizine (ANTIVERT) 12.5 mg tablet Take 1 tablet (12.5 mg total) by mouth 2 (two) times a day as needed for dizziness or nausea 3 Active buPROPion XL (WELLBUTRIN XL) 300 mg 24 hr tabletIndicatio ns:Anxiety with Depression Take 150 mg by mouth nightly 3 Active QUEtiapine (SEROquel) 100 mg tabletIndicatio ns:Depression Treatment Adjunct Take 1 tablet (100 mg total) by mouth nightly at bedtime 3 Active levothyroxine (SYNTHROID) 200 mcg tabletIndicatio ns:hypothyroidi sm 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 3 Active acetaminophen 500 mg capsuleIndicati ons:Pain Take 2 capsules (1,000 mg total) by mouth every 6 (six) hours 240 tablet 4 Active cyclobenzaprine (FLEXERIL) 5 mg tablet Take 1 tablet (5 mg total) by mouth 3 (three) times a day 180 tablet 4 Active Active Problems Problem Noted Date Diagnosed Date Failure of left total hip arthroplasty 4 Chest pain, unspecified 01/17/2024 Shortness of breath [...] breast 09/02/2014 Chronic obstructive pulmonary disease 06/03/2013 Social History Tobacco Use Types Packs/Day Years Used Date Smoking Tobacco: Former Cigarettes Q uit: 07/22/2007 Tobacco Cessation:Counseling Given: Not Answered Alcohol Use Standard Drinks/Week Comments No 0 (1 standard drink = 0.6 oz pur e alcohol) AUDIT-C Answer Date Recorded Q1: How often do you have a drink containing alcohol? Never 11/08/2023 Q2: How many drinks containi ng alcohol do you have on a typical day when you are drinking? Patient does not drink Q3: How often do you have si x or more drinks on one occasion? Never 11/08/2023 Hunger Vital Sign Answer Date Recorded Within the past 12 months, y ou worried that your food would run out before you got the money to buy more. Never true 12/03/19 24 Within the past 12 months, t he food you bought just didn't last and you didn't have money to get more. Never true 12/03/2023 Personal Safety Answer Date Recorded Have you ever been in or are you currently in a harmful physical or emotional relationship or is someone making you feel afraid or unsafe? 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 Gender Identity Female 01/24/2022 3:03 PM CDT Sexual Orientation Not on file Last Filed Vital Signs Vital Sign Reading Time Taken Comments Blood Pressure 152/87 12/03/2023 2:16 PM CDT Pulse 77 12/03/2023 2:16 PM CDT Temperature 36.9 C (98.5 F) 11/20/2023 8:10 AM CDT Respiratory Rate 18 11/20/2023 8:10 AM CDT Oxygen Saturation 100% 12/03/2023 2:16 PM CDT Inhaled Oxygen Concentration - - Weight 113.9 kg (251 lb) 01/17/2024 8:17 AM CDT Height 163.8 cm (5' 4.5 ) 01/17/2024 8:17 AM CDT Body Mass Index 42.42 01/17/2024 8:17 AM CDT Plan of Treatment Not on file Procedures Procedure Name Priority Date/Time Associated Diagnosis Comments EGFR Routine 01/28/2023 11:10 AM CDT BMI 45.0-49.9, adult (HCC) Morbid obesity (HCC) HEMOGLOBIN A1C Routine 01/28/2023 11:10 AM CDT BMI 45.0-49.9, adult (HCC) Morbid obesity (HCC) LIPID PANEL Routine 01/28/2023 11:10 AM CDT BMI 45.0-49.9, adult (HCC) Morbid obesity (HCC) COLONOSCOPY REPORT 08/27/2012 from Last 3 Months or Most Recently Relevant to Health Maintenance Results * eGFR (01/28/2023 11:10 AM CDT) eGFR 71 mL/min/1. 73 m2 [facility] Comment: Interpretive Data Reference Interval Normal >/= 90 mL/min/1.73m2 Mildly decreased* 60 - 89 mL/min/1.73m2 Mildly to moderately decreased 45 - 59 mL/min/1.73m2 Moderately to severely decreased 30 - 44 mL/min/1.73m2 Severely decreased 15 - 29 mL/min/1.73m2 Kidney Failure < 15 mL/min/1.73m2 *Relative to young adult level Estimated glomerular filtration rate is determined by the 2020 CKD-EPI equation recommended by the National Kidney Foundation (A Unifying Approach to GFR Estimation: Recommendations of the NKF-ASK Task Force on Reassessing the Inclusion of Race in Diagnosing Kidney Disease, JASN 2020). The CKD-EPI equation should not be used for patients with unstable renal function and has not been validated in children and those over 70. Current interpretive data was last reviewed 2021. Blood 01/28/2023 11:1 0 AM CDT 01/28/2023 11:24 AM CDT us Mojgan Morrison NP LAB BLOOD ORDERABLES Final Result [facility] [address] [facility]. [place] [address] * Hemoglobin A1c (01/28/2023 11:10 AM CDT) Hgb A1C 5.5 4.0 - 5.6 % [facility] Estimated Average Glucose 111 mg/dL [facility] Comment: The ADA recommends reporting an estimated Average Glucose (eAG) with all Hemoglobin A1c results using the equation derived from a study of 507 normal and diabetic adults. Minority populations were underrepresented and children were not included. (Diabetes Care 31:1682-2933, 2008). The eAG is not equivalent to a fasting glucose. Blood 01/28/2023 11:1 0 AM CDT 01/28/2023 11:24 AM CDT us Mojgan Morrison NP LAB BLOOD ORDERABLES Final Result [facility] [address] [facility]. [place] [address] * Lipid panel (01/28/2023 11:10 AM CDT) Cholesterol 143 30 - 199 mg/dL [facility] Comment: Interpretive Data Ages < or = 19 years Acceptable: <170 mg/dL Borderline high: 170-199 mg/dL High: >or= 200 mg/dL Ages > or = 20 years Desirable: <200 mg/dL Borderline high: 200-239 mg/dL High: >or= 240 mg/dL Literature References: 1. Expert Panel on Integrated Guidelines for Cardiovascular Health and Risk Reduction in Children and Adolescents. Pediatrics 2011;128:S213 2. NCEP Expert Panel. Circulation 2004;110:227 Current Interpretive Data was last revised on 2018. Triglycerides 141 <=149 mg/dL [facility] Comment: Interpretive Data Ages < or = 9 years Acceptable: <75 mg/dL Borderline high: 75-99 mg/dL High: >or= 100 mg/dL Ages 10 to 20 years Acceptable: <90 mg/dL Borderline high: 90-129 mg/dL High: >or= 130 mg/dL Ages > or = 20 years Desirable: <150 mg/dL Borderline high: 150-199 mg/dL High: 200-499 mg/dL Very high: >or= 499 mg/dL Literature References: 1. Expert Panel on Integrated Guidelines for Cardiovascular Health and Risk Reduction in Children and Adolescents. Pediatrics 2011;128:S213 2. NCEP Expert Panel. Circulation 2004;110:227 Current Interpretive Data was last revised on 2018. HDL 58 >=40 mg/dL [facility] Comment: Interpretive Data Ages < or = 19 years Acceptable: >45 mg/dL Borderline low: 40-45 mg/dL Low: <40 mg/dL Ages > or = 20 years Desirable: >or= 60 mg/dL Low: <40 mg/dL Literature References: 1. Expert Panel on Integrated Guidelines for Cardiovascular Health and Risk Reduction in Children and Adolescents. Pediatrics 2011;128:S213 2. NCEP Expert Panel. Circulation 2004;110:227 Current Interpretive Data was last revised on 2018. LDL, calculated 57 <=129 mg/dL [facility] Comment: Interpretive Data Ages < or = 19 years Acceptable: <110 mg/dL Borderline high: 110-129 mg/dL High: >or= 130 mg/dL Ages > or = 20 years Optimal: <100 mg/dL Near optimal: 100-129 mg/dL Borderline high: 130-159 mg/dL High: >160 mg/dL Literature References: 1. Expert Panel on Integrated Guidelines for Cardiovascular Health and Risk Reduction in Children and Adolescents. Pediatrics 2011;128:S213 2. NCEP Expert Panel. Circulation 2004;110:227 Current Interpretive Data was last revised on 2018. Non-HDL Cholesterol 85 mg/dL [facility] Comment: Interpretive Data Ages < or = 19 years Acceptable: <120 mg/dL Borderline high: 120-144 mg/dL High: >145 mg/dL Ages > or = 20 years When triglycerides are >200 mg/dL, Non-HDL cholesterol is a secondary target of therapy with treatment goals that are 30 mg/dL greater than the LDL cholesterol target. Literature References: 1. Expert Panel on Integrated Guidelines for Cardiovascular Health and Risk Reduction in Children and Adolescents. Pediatrics 2011;128:S213 2. NCEP Expert Panel. Circulation 2004;110:227 Current Interpretive Data was last revised on 2018. Chol/HDL ratio 2 [facility] Blood 01/28/2023 11:1 0 AM CDT 01/28/2023 11:24 AM CDT us Mojgan Morrison NP LAB BLOOD ORDERABLES Edited Result - Final [facility] [address] [place] [address] * COLONOSCOPY REPORT (08/27/2012) Anatomical Region Laterality Modality Other Narrative 08/27/2012 Ordered by an unspecified provider. us Historical Provider GI PROCEDURE ORDERABLES F inal Result from Last 3 Months or Most Recently Relevant to Health [place] [address] [place] [address] [facility] [place] [address] [place] [address] [facility] [place] [address] [facility] [place] [address] [facility] Advance Directives For more information, please contact: [phone] * Full Code (Latest Code Status on File) Date Activated Date Inactivated Comments 11/19/2023 5:04 PM 11/20/2023 3:21 PM Care Teams Pc Technician Relationship Specialty Start Date End Date Leandra Helms PA PCP - General Physician Professor Of Family Medicine 03/16/22
--- OUTSIDE RECORDS SUMMARY | 2024-11-19 17:31 | XMS_ITS | Clinical Summary ---
Author Organization [facility] Address [address], [place] [address] Phone Care Team Providers Care Forensics Team Director Name Role Phone Leandra Helms Primary Care Provider [phone] Social History Tobacco Use Types Packs/Day Years Used Date Smoking Tobacco: Never Assessed Comments Unknown Sex and Gender Information Value Date Recorded Sex Assigned at Not on file Legal Sex Female 2:28 PM MST Gender Identity Not on file Sexual Orientation Not on file Plan of Treatment Health Maintenance Due Date Last Done Comments Pneumococcal PPSV23/PCV13 65 + Years / Low and Medium Risk (1 of 4 - PCV) 10/16/2003 Influenza Vaccine (Season Ended) 2025 Care Teams Forensics Team Director Relationship Specialty Start Date End Date Leandra Helms PA [address] [place] [phone] PCP - General Family Medicine 06/01/21
--- OUTSIDE RECORDS SUMMARY | 2024-11-19 17:31 | XMS_ITS | Clinical Summary ---
Author Organization [facility] [employer] Address [address] [facility] [place] [address] Care Team Providers Care Microbiology Professor Name Role Phone Leandra Helms PA-C Primary Care Provider Source Comments [facility],non-owned Affiliates and Associated Physician Practices is amultiple site organization consisting of ambulatory clinics and hospital sitesin [place], [place], [place] and [place]. This disclosure is being madepursuant to the Care Everywhere program and may not contain all information available regarding this patient. Last updated 18.[facility] [employer] Allergies Active Allergy Reactions Criticality Noted Date Comments Brassica Oleracea Italica Vomiting High 07/19/2021 Codeine Nausea and/or Vomiting 02/20/2023 Egg Yolk Rash High 07/19/2021 Chicken-Derived Products Rash,Shortness of Breath High 05/21/2016 Breathing Difficulty Ibuprofen Vomiting 02/20/2023 Influenza Vaccines Other 05/29/2018 Egg allergy Egg allergy Peanut Butter Flavor Rash Medium 04/30/2018 PEANUT BUTTER PEANUT BUTTER Peanut-Derived Urticaria High 08/06/2012 Penicillins Rash,Unknown Medium 08/06/2012 Medications * Be aware that medications may not be up to date on this document. Alwaysverify current medications with the patient. albuterol HFA (PROVENTIL; VENTOLIN; PROAIR) 108 (90 Base) MCG/ACT inhaler Inhale 2 (two) puffs by mouth 4 times daily as needed Active apixaban (Eliquis) 5 MG tablet Take 1 (one) tablet by mouth once daily 1 Active aspirin buffered (BUFFERIN LOW DOSE) 81 MG tablet Take 1 (one) tablet by mouth once daily Active atorvastatin (LIPITOR) 20 MG tablet Take 1 (one) tablet by mouth once daily Active buPROPion XL 24hr (WELLBUTRIN-XL) 300 MG tablet Take 1 (one) tablet by mouth once daily 1 Active clonazePAM (KlonoPIN) 0.5 MG tablet Take 1 (one) tablet by mouth Active diclofenac sodium EC (VOLTAREN) 75 MG tablet Take 7.5 mg by mouth once daily Active hydrOXYzine pamoate (VISTARIL) 25 MG capsule Take 12.5 mg by mouth once daily Active hydroCHLOROthia zide (MICROZIDE) 12.5 MG capsule Take 1 (one) capsule by mouth once daily Active levothyroxine (SYNTHROID) 200 MCG tablet Take 175 mcg by mouth once daily 1 Active losartan (COZAAR) 100 MG tablet Take 1 (one) tablet by mouth once daily Active QUEtiapine (SEROQUEL) 50 MG tablet Take 50 mg by mouth once daily 1 Active carvedilol (COREG) 6.25 MG tablet Take 1 (one) tablet by mouth 2 times daily Active ondansetron, disintegrating, (ZOFRAN ODT) 4 MG tablet Take 4 mg by mouth as needed Active pantoprazole EC (Protonix) 40 MG tablet pantoprazole 40 mg tablet,delayed release TAKE 1 TABLET BY MOUTH EVERY DAY Active busPIRone (Buspar) 15 MG tablet Take 1 (one) tablet by mouth 2 times daily 3 Active metFORMIN (Glucophage) 500 MG tablet Take 1 (one) tablet by mouth 2 times daily 3 Active montelukast (Singulair) 10 MG tablet Take 1 (one) tablet by mouth once daily 1 Active acyclovir (Zovirax) 400 MG tablet Take 1 (one) tablet by mouth once daily 2 Active Active Problems Problem Noted Date Diagnosed Date Obstructive sleep apnea syndrome 12/03/2022 Overview (11/11/2024): Unable to tolerate CPAP. Stage 3a chronic kidney disease 08/29/2021 Diabetes mellitus 08/28/2021 Gastroesophageal reflux disease 08/28/2021 FPC current use of anticoagulant therapy 0 08/02/2021 Anemia 01/12/2021 Hiatus hernia with obstruction 01/12/2021 Status post thyroidectomy 12/21/2020 Hx of transient ischemic attack (TIA) 11/27/2018 History of left breast cancer 08/29/2017 Bipolar I disorder 06/20/2017 Generalized anxiety disorder 06/20/2017 Essential (primary) hypertension 06/20/2017 Obesity 06/20/2017 Asthma 08/02/2016 Acquired hypothyroidism 08/02/2016 Hyperlipidemia, unspecified 08/06/2012 Encounters Date Type Department Care Team Description 11/12/2024 Orders Only [facility] - Pulmonology [address] [place] [phone] Shabana Gonzalez RN 11/11/2024 8:30 AM CDT Office Visit [facility] - Pulmonology [address] [place] [phone] Jo Carrillo, History of pulmonary embolism (Primary Dx); SAVAGE (dyspnea on exertion), multifactorial; Lung nodule, solitary; Former tobacco use; Mild intermittent asthma without complication (HCC); Need for vaccination 11/11/2024 Travel from Last 3 Months Immunizations Immunization Administration Dates Next Due FLU VACCINE QUAD IIV4 SPLIT 0.25 ML IM 0 INFLUENZA VACCINE 03/20/2021 PNEUMOCOCCAL PCV20 CONJ VAC IM 11/11/2024 Pneumococcal Pcv13 Conj 11/27/2018 Social History Tobacco Use Types Packs/Day Years Used Date Smoking Tobacco: Former Cigarettes Smokeless Tobacco: Never Tobacco Cessation:Counseling Given: Not Answered PHQ-2 Answer Date Recorded PHQ2 TOTAL SCORE 0 07/19/2021 Comments No Sex and Gender Information Value Date Recorded Sex Assigned at Not on file 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 Gender Identity Not on file Sexual Orientation Not on file Last Filed Vital Signs Vital Sign Reading Time Taken Comments Blood Pressure 113/74 11/11/2024 8:39 AM CDT Pulse 67 11/11/2024 8:39 AM CDT Temperature 36.7 C (98 F) 11/11/2024 8:39 AM CDT Respiratory Rate 17 11/11/2024 8:39 AM CDT Oxygen Saturation 96% 11/11/2024 8:39 AM CDT Inhaled Oxygen Concentration - - Weight 117.7 kg (259 lb 6.4 oz) 11/11/2024 8:39 AM CDT Height 165.1 cm (5' 5 ) 11/11/2024 8:39 AM CDT Body Mass Index 43.17 11/11/2024 8:39 AM CDT Plan of Treatment Upcoming Encounters Date Type Department Care Team (Late st Contact Info) Description 05/19/2025 9:30 AM CDT Office Visit [facility] - Pulmonology [address] [facility] [place] [address] Jo Carrillo, [address] [place] [address] OF [facility] [place] [address] Health Maintenance Due Date Last Done Comments BONE DENSITY TESTING 1955 COLOGUARD (AGES 45-75) - COL ON CA SCREENING 1955 COLON MONITORING 1953 COLONOSCOPY - COLON CA SCREENING 1953 CT COLONOGRAPHY - COLON CA SCREENING 1955 Colorectal Cancer Screening 1955 FIT - COLON CA SCREENING 1955 FLEX SIG - COLON CA SCREENING 1955 HEPATITIS C SCREENING 10/11/1971 DTAP/TDAP/TD VACCINES (1 - Tdap) 1972 ZOSTER VACCINE (1 of 2) 10/16/2003 Respiratory Syncytial Virus (RSV) Vaccine Pt: or over 60 yrs (1 - Risk 60-74 years 1-dose series) 2013 MAMMOGRAM 01/27/2021 01/27/2019, 01/27/2019, 10/02/2017 DIABETES-SERUM CREATININE 01/29/20242022, 01/28/2023, 04/30/2022 COVID-19 VACCINE (1 - 2023-2 5 season) 2024 DIABETES - URINE PROTEIN SCREENING 07/22/2024 04/30/2022 DIABETES RETINOPATHY SCREENING 11/11/2024 DIABETES-FOOT EXAM WITH MONOFILAMENT 11/11/2024 DIABETES-HGB A1C 11/11/2024 05/24/2023, 01/28/2023, 04/30/2022 INFLUENZA VACCINE (Season Ended) 2025 03/20/2021, 05/05/2020 PNEUMOCOCCAL VACCINE 50+ Completed 025, 11/27/2018 HEPATITIS B VACCINE Aged Out No longe r eligible based on patient's age to complete this topic HIB VACCINE Aged Out No longer eligi ble based on patient's age to complete this topic HPV VACCINE Aged Out No longer eligi ble based on patient's age to complete this topic MENINGOCOCCAL (Group B) VACCINE SHARED DECISION-MAKING Aged Out No longer eligible based on patient's age to complete this topic MENINGOCOCCAL GROUPS A/C/Y/W VACCINE Aged Out No longer eligible b ased on patient's age to complete [place] [address] [facility] Care Teams Microbiology Professor Relationship Specialty Start Date End Date Leandra Helms PA-C [address] [place] [phone] PCP - General 05/31/21
--- OUTSIDE RECORDS SUMMARY | 2024-11-19 17:31 | XMS_ITS | Encounter Summary ---
Author Organization [facility] Address [address] [facility] [place] [address] Phone Care Team Providers Care Center Lead Consultant Name Role Phone Hung Casillas MD Unavailable Provider, None Primary Care Provider Unavailabl e Reason for Visit * Reason Onset Date Comments Medication Refill 09/01/2020 Encounter Details Date Type Department Care Team (Late st Contact Info) Description 09/01/2020 Refill [facility] [place] [address] [place], [place] [id number] Radha Pinto MD [address] [place] [address] Medication Refill Social History Tobacco Use Types Packs/Day Years Used Date Smoking Tobacco: Former Cigarettes 0.3 25 0 11/26/1993 - 11/26/2018 Smokeless Tobacco: Never Alcohol Use Standard Drinks/Week Comments No 0 (1 standard drink = 0.6 oz pur e alcohol) Comments No Sex and Gender Information Value Date Recorded Sex Assigned at Not on file Legal Sex Female 8:55 PM CDT Gender Identity Not on file Sexual Orientation Not on file Occupation Industry Job Start Date Job End Date disabled Not on file Not on file Not on file documented as of this encounter Miscellaneous Notes * Telephone Encounter - Shanda Shukla RN - 09/02/2020 11:00 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 ET MACHINE OPERATOR documented in this encounter Plan of Treatment Not on file documented as of this encounter Visit Diagnoses Not on filedocumented in this encounter Additional Health Concerns Assessment Noted Time PHQ-9 Depression Total Score: 0 06/20/20 17 2:00 PM POCKET MACHINE OPERATOR documented as of this encounter Care Teams Center Lead Consultant Relationship Specialty Start Date End Date Provider, None [place] PCP - General 07/30/19 Hung Casillas MD Obstetrics & Gynecology 05/29/18 documented as of this encounter
--- OUTSIDE RECORDS SUMMARY | 2024-11-19 17:31 | XMS_ITS | Clinical Summary ---
Author Organization [facility] Address [address] [place] [address] Phone Care Team Providers Care Sheep Sorter Name Role Phone Hung Casillas MD Unavailable Provider, None Primary Care Provider Unavailabl e Allergies Active Allergy Reactions Criticality Noted Date Comments Egg-Derived Products Rash 06/20/2017 Influenza Vaccines Other (see Comments) 018 Egg allergy Peanut Butter Flavoring Agent (Non-Screening) Rash Low 04/30/2018 PEANUT BUTTER Penicillins Rash Low 06/20/2017 Medications busPIRone (BUSPAR) 10 MG TabletIndications: Depression with anxiety Take 10 mg by mouth 2 times daily. Active acyclovir (ZOVIRAX) 200 MG CapsuleIndications :Genital herpes simplex, unspecified site Take 200 mg by mouth every morning. Active carvedilol (COREG) 6.25 MG TabletIndications: Essential hypertension take 1 tablet (6.25MG) by oral route 2 times every day with food 3 Active hydrOXYzine (VISTARIL) 25 MG Capsule Take 25 mg by mouth daily. Active acetaminophen (TYLENOL) 500 MG Tablet Take 500 mg by mouth every 6 hours as needed for Fever or Mild or more severe pain. Active Aspirin 81 MG Tablet Take 81 mg by mouth daily. Active QUEtiapine Fumarate (SEROQUEL) 50 MG Tablet Take 50 mg by mouth nightly. Active clonazePAM (KLONOPIN) 0.5 MG Tablet Take 0.5 mg by mouth nightly. Active naltrexone (DEPADE) 50 MG Tablet Take 50 mg by mouth daily. Active levothyroxine (SYNTHROID) 200 MCG Tablet TAKE 1 TABLET BY MOUTH EVERY DAY 90 Tab 2 9 Active BuPROPion HCl (WELLBUTRIN SR) 200 MG TABLET SR 12 HR Take 200 mg by mouth daily. Active hydroCHLOROthiazid e (MICROZIDE) 12.5 MG Capsule Take 1 Cap by mouth daily. 90 Cap 1 9 Active atorvastatin (LIPITOR) 20 MG TabletIndications: Hyperlipidemia, unspecified hyperlipidemia type Take 1 Tab by mouth daily. 90 Tab 1 9 Active naproxen (NAPROSYN) 500 MG Tablet Take 1 Tab by mouth 2 times daily (with meals). 60 Tab 3 9 Active Incontinence Supply Disposable (DEPEND ADJUSTABLE UNDERWEAR) MiscIndications:Ur inary incontinence, unspecified type Use as needed daily for incontinence. Dx: R32 1 Each 12 9 Active Incontinence Supplies MiscIndications:Ur inary incontinence, unspecified type Use PADS as needed daily for incontinence. 12 Each 1 9 Active albuterol 108 (90 Base) MCG/ACT Aerosol Solution take 2 Puffs by inhalation every 4 hours as needed for Wheezing or Cough. 2 Inhaler 9 Active losartan (COZAAR) 100 MG TabletIndications: Essential hypertension Take 1 Tab by mouth daily. 90 Tab 2 9 Active montelukast (SINGULAIR) 10 MG Tablet Take 1 Tab by mouth daily. 90 Tab 0 Active Active Problems Problem Noted Date Diagnosed Date Hx of transient ischemic attack (TIA) 11/27/2018 Prediabetes 05/29/2018 Total knee replacement status, left 05/09/2018 History of left breast cancer 08/29/2017 High blood pressure 06/20/2017 Osteoarthritis of multiple joints 06/20/2017 Obesity, Class III, BMI 40-49.9 (morbid obesity) 06/20/2017 Hyperlipidemia 06/20/2017 Vitamin D deficiency 06/20/2017 Seasonal allergic rhinitis 06/20/2017 Mild intermittent asthma without complication Depression with anxiety 06/20/2017 Schizoaffective disorder 06/20/2017 Bipolar 1 disorder 06/20/2017 Genital herpes simplex 06/20/2017 Hypothyroidism (acquired) 06/20/2017 Resolved Problems Problem Noted Date Diagnosed Date Resolved Date Primary osteoarthritis of left knee 05/07/2018 05/29/2018 Immunizations Immunization Administration Dates Next Due Influenza, Recombinant, Quadrivalent,injectable, Pf 05/08/2018() Pneumococcal Vaccine - 13 Valent 11/27/2018 Family History Relation Name Status Comments Father Other Mother Other Social History Tobacco Use Types Packs/Day Years [...] file Not on file Not on file Last Filed Vital Signs Vital Sign Reading Time Taken Comments Blood Pressure 122/74 03/19/2019 10:56 AM CDT Pulse 69 03/19/2019 10:56 AM CDT Temperature 37 C (98.6 F) 03/19/2019 10:56 AM CDT Respiratory Rate 18 03/19/2019 10:56 AM CDT Oxygen Saturation 96% 03/19/2019 10:56 AM CDT Inhaled Oxygen Concentration - - Weight 140 kg (308 lb 9.6 oz) 03/19/2019 10:56 A M CDT Height 170.2 cm (5' 7 ) 03/19/2019 10:56 AM CDT Body Mass Index 48.33 03/19/2019 10:56 AM CDT Plan of Treatment Health Maintenance Due Date Last Done Comments Hepatitis C Virus (HCV) Screening 1955 TdaP Immunization 1955 Cologuard 10/16/2003 Immunochemical Fecal Occult Blood 10/16/2003 Zoster Immunization (1 of 2) 10/16/2003 Respiratory Syncytial Virus (RSV) Immunization (Adult) (1 - Risk 60-74 years 1-dose series) 2013 Pneumococcal Immunization (50+ years) (2 of 2 - PPSV23) 01/22/2019 11/27/2018 Colonoscopy 01/09/2024 01/08/2019, 12/20/2017 Colorectal Cancer Screening 01/09/2024 SARS-COV-2 Immunization (2023-25 season) 2024 01/26/2022, 09/26/2021, 02/15/2021, Additional history exists 01/08/2019 Pneumococcal Immunization Combined Discontinued 11/27/2018 Mammogram Discontinued 01/27/2019, 10/02/2017 Hepatitis B Immunization Aged Out No longer eligible based on patient's age to complete this topic Meningococcal Immunization (ACWY) Aged Out No longer eligible based on patient's age to complete this topic Rotavirus Immunization Aged Out No lo nger eligible based on patient's age to complete this topic Medical Devices Implanted Type [employer] Art Teacher Device Identifier Shelf Expiration Date Model / Serial / Lot Agent Hemostatic Surgiflo Evithrom Gelatin Topical Kit Ndl Free Vial Adpr Multibend Flextip 8mlstrl - [id number] Implanted:Qty: 1 on 05/07/2018 by Krishna Hernandez MD at [facility] IMPLANT Left: Knee [employer] 09/19/2019 [id number] / [id number] / [id number] Knee Femoral Component Beaded With Pa Cementless Cruciate Retaining Triathlon Left Size 5 - [id number] Implanted:Qty: 1 on 05/07/2018 by Krishna Hernandez MD at [facility] IMPLANT Left: Knee [employer] 06/27/2022 [id number] / [id number] / [id number] Component Patellar 40mm Bead Triathlon Fabienne-Apatite Knee - [id number] Implanted:Qty: 1 on 05/07/2018 by Krishna Hernandez MD at [facility] IMPLANT Left: Knee [employer] 04/20/2019 [id number] / [id number] / [id number] Triathlon Tritanium Tibial Compnent Implanted:Qty: 1 on 05/07/2018 by Krishna Hernandez MD at [facility] Left: Knee [employer] / ORTHOPAEDICS 11/18/2022 [id number] / [id number] / [id number] Triathlon Tibial Bearing Insert Implanted:Qty: 1 on 05/07/2018 by Krishna Hernandez MD at [facility] Left: Knee [employer] / ORTHOPAED[employer] 10/20/2019 [id number] / [id number] / [id number] Procedures Procedure Name Priority Date/Time Associated Diagnosis Comments ALEXIS SCREENING BILATERAL DIGITAL W CAD W SIERRA Routine 01/27/2019 12:09 PM CDT Screening for malignant neoplasm of breast from Last 3 Months or Most Recently Relevant to Health Maintenance Results * ALEXIS SCREENING BILATERAL DIGITAL W CAD W SIERRA (01/27/2019 12:09 PM CDT) Anatomical Region Laterality Modality breast Bilateral Mammography 01/27/2019 11:2 5 AM CDT Narrative 01/27/2019 5:00 PM CDT - ALEXIS SCREENING BILATERAL DIGITAL W CAD W SIERRA BILATERAL DIGITAL SCREENING MAMMOGRAM 3D/2D WITH CAD WITH MEDIOLATERAL OBLIQUE CRANIOCAUDAL: 01/27/2019 The study was acquired using digital technology and interpreted from soft copy. Current study was also evaluated with K1 Speed version 7.2. CLINICAL: Routine screening. Patient has no complaints. Previous history of left breast cancer and colon cancer. Family history of breast cancer unknown. COMPARISONS: Comparison is made to exams dated: 10/02/[address] [facility], 04/20/2016, and 01/12/2015 [facility]. BREAST TISSUE:The tissue of both breasts is predominantly fatty. FINDINGS: There are post operative findings in the left breast. No significant masses, calcifications, or other findings are seen in either breast. There has been no significant interval change. IMPRESSION: BI-RAD 1 NEGATIVE There is no mammographic evidence of malignancy. A 1 year screening mammogram is recommended. The patient has been or will be contacted. The patient will be entered into a reminder system with a target due date of 1 year for her next screening exam. Electronically signed by: Macrina zayas/nuria:01/27/2019 16:17:13 Informatics Developer: Aretha ZHONG)(M), [facility] letter sent: Normal Exam Reading location: [facility] BI-RADS: 1 Negative Procedure Note Macrina Scott MD - 01/27/2019 - ALEXIS SCREENING BILATERAL DIGITAL W CAD W SIERRA BILATERAL DIGITAL SCREENING MAMMOGRAM 3D/2D WITH CAD WITH MEDIOLATERAL OBLIQUE CRANIOCAUDAL: 01/27/2019 The study was acquired using digital technology and interpreted from soft copy. Current study was also evaluated with ICAD version 7.2. CLINICAL: Routine screening. Patient has no complaints. Previous history of left breast cancer and colon cancer. Family history of breast cancer unknown. COMPARISONS: Comparison is made to exams dated: 10/02/[address] [facility], 04/20/2016, and 01/12/2015 [facility]. BREAST TISSUE:The tissue of both breasts is predominantly fatty. FINDINGS: There are post operative findings in the left breast. No significant masses, calcifications, or other findings are seen in either breast. There has been no significant interval change. IMPRESSION: BI-RAD 1 NEGATIVE There is no mammographic evidence of malignancy. A 1 year screening mammogram is recommended. The patient has been or will be contacted. The patient will be entered into a reminder system with a target due date of 1 year for her next screening exam. Electronically signed by: Macrina zayas/nuria:01/27/2019 16:17:13 Informatics Developer: Aretha ZHONG)(Tom), [facility] letter sent: Normal Exam Reading location: [facility] BI-RADS: 1 Negative us Radha Pinto MD IMG MAMMO ORDERABLES Final R esult from Last 3 Months or Most Recently Relevant to Health Maintenance Insurance MEDICAID [employer] Advance Directives Documents on File Type Date Recorded Patient Applications Programmer Analyst Expl anation Power of Vp Clinical Research for Health Care 05/12/2018 7:52 AM POA-HC * Full Code (Latest Code Status on File) Date Activated Date Inactivated Comments 06/13/2018 11:11 PM 01/08/2019 6:36 AM Care Teams Sheep Sorter Relationship Specialty Start Date End Date Provider, None [place] PCP - General 07/30/19 Hung Casillas MD Obstetrics & Gynecology 05/29/18
--- OUTSIDE RECORDS SUMMARY | 2024-11-19 17:31 | XMS_ITS | Encounter Summary ---
Author Organization [facility] Address [address] [place] [address] Care Team Providers Care Solar Photovoltaic Designer Name Role Phone Leandra Helms PA-C Primary Care Provider Encounter Details Date Type Department Care Team (Late st Contact Info) Description 02/05/2024 Telephone [facility] - Centralized Scheduling [address] [place] [address] Kathy Lopez MD [address] [address] Social History Tobacco Use Types Packs/Day Years Used Date Smoking Tobacco: Former Cigarettes Smokeless Tobacco: Never PHQ-2 Answer Date Recorded PHQ2 TOTAL SCORE 0 07/19/2021 Comments No Sex and Gender Information Value Date Recorded Sex Assigned at Not on file 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 Gender Identity Not on file Sexual Orientation Not on file documented as of this encounter Plan of Treatment Upcoming Encounters Date Type Department Care Team (Late Contact Info) Description 05/19/2025 9:30 AM CDT Office Visit [facility] - Pulmonology [facility] [facility], [place] [phone] Jo Carrillo DO [address] [place] [address] DIV OF [facility] [place] [address] documented as of this encounter Visit Diagnoses Not on filedocumented in this encounter Care Teams Solar Photovoltaic Designer Relationship Specialty Start Date End Date Leandra Helms PA-C [address] [place] [phone] PCP - General 05/31/21 documented as of this encounter
--- OUTSIDE RECORDS SUMMARY | 2024-11-19 17:31 | XMS_ITS | Clinical Summary ---
Author Organization [facility] Address [address] [place] [address] Phone Care Team Providers Care Tank Car Repairer Name Role Phone Leandra Helms Primary Care [...] ns:hypothyroidi sm Take 175 mcg by mouth manufacturing development engineer before breakfast 3 Active acetaminophen 500 mg [...] breast 09/02/2014 Chronic obstructive pulmonary disease 06/03/2013 Surgical History Surgery Date Site/Laterality Comments CHOLECYSTECTOMY 07/22/2003 - 07/21/2004 Cholecystectomy THYROIDECTOMY, PARTIAL unusre of date KNEE SURGERY 07/22/2017 - 07/21/2018 total knee surgery-unsure of date BREAST LUMPECTOMY >20 years ago Medical History Medical History Date Comments Hx Other Medical chest pain Depression depression Hypothyroidism hypothyroidism Adiposity Obesity Hypertension Hypertension Hx Other Medical Gastroesophagea l reflux disease Hyperlipidemia Hyperlipidemia Malignant neoplasm of male breast (HCC) Cancer, breast Hx Other Medical bipolar disorde r Hx Other Medical Thyroidectomy Hx Other Medical dm Hx Other Medical breast surgery Hx Other Medical Knee surgery Polyp of colon colon polyps Hx Other Medical hiatal hernia Bipolar disorder (HCC) GERD (gastroesophageal reflux disease) Type 2 diabetes mellitus (HCC) Chronic kidney disease Arthritis COPD (chronic obstructive pu lmonary disease) (HCC) Pulmonary embolism (HCC) Joint pain Vitamin D deficiency Schizo affective schizophrenia (HCC) Hiatal hernia Motion sickness Family History Relation Name Status Comments Other Social History Tobacco Use Types Packs/Day [...] on file Legal Sex Female 12:10 AM AGENT CONTRACT CLERK Gender Identity Female 01/24/2022 3:03 PM CDT Sexual Orientation Not on file Obstetrics History Last Filed Vital Signs Vital Sign Reading [...] 01/17/2024 8:17 AM CDT Plan of Treatment Health Maintenance Due Date Last Done Comments Albumin Creatinine Ratio, Urine 1955 Depression Screening 1955 Hepatitis C Screening 1955 Osteoporosis Screening-Bone Density Scan 1955 Dilated Eye Exam 1955 Foot Exam 1955 DTaP/Tdap/Td Vaccine (1 - Tdap) 1964 Hepatitis B Screening 10/16/1971 Pneumococcal vaccine 65+ (1 of 2 - PCV) 1972 Zoster Vaccine (1 of 2) 10/16/2003 Well Visit 65+ 2018 Breast Cancer Screening-Mammogram 01/28/2020 01/27/2019, 01/27/2019, 10/02/2017 Colon Cancer Screening-Colonoscopy 08/27/2022 08/27/2012 Hemoglobin A1C 07/31/2023 01/28/2023 eGFR 01/29/2024 01/28/2023 Covid-19 Vaccine (3 - 2023-2 5 season) 2024 02/15/2021, 01/17/2021 Influenza Vaccine (#1) 2024 Lipid Panel 05/24/2024 05/24/2023, 07, 04/30/2022, Additional history exists Fall Risk Assessment 11/19/2024 11/20/2023 Colon Cancer Screening-CT Colonography Discontinued 08/27/2012 Colon Cancer Screening-DNA Stool Discontinued 08/27/19 13 Colon Cancer Screening-FIT Discontinued 08/27/2012 Colon Cancer Screening-Sigmoidoscopy Discontinued 08/27/2012 Procedures Procedure Name Priority Date/Time Associated Diagnosis [...] NP LAB BLOOD ORDERABLES Final Result [facility] [id number] [facility]. [place] [address] * Hemoglobin A1c (01/28/2023 11:10 [...] and children were not included. (Diabetes Care 31:4166-5358, 2008). The eAG is not equivalent to a fasting glucose. Blood 01/28/2023 11:1 0 AM CDT 01/28/2023 11:24 AM CDT us Mojgan Morrison NP LAB BLOOD ORDERABLES Final Result [facility] CABRERA [id number] [facility]. [place] [address] * Lipid panel (01/28/2023 11:10 AM CDT) [...] BLOOD ORDERABLES Edited Result - Final [facility] [address] [facility] [address] * COLONOSCOPY REPORT (08/27/2012) Anatomical Region Laterality Modality Other Narrative 08/27/2012 Ordered by an unspecified provider. Historical Provider GI PROCEDURE ORDERABLES F inal Result from Last 3 Months or Most Recently Relevant to Health Maintenance Insurance [facility] Advance Directives For more information, please contact: [phone] * Full Code (Latest Code Status on File) Date Activated Date Inactivated Comments 11/19/2023 5:04 PM 11/20/2023 3:21 PM Care Teams Tank Car Repairer Relationship Specialty Start Date End Date Leandra Helms PA PCP - General Physician Construction Driller 03/16/22
--- OUTSIDE RECORDS SUMMARY | 2024-11-19 17:31 | XMS_ITS | Encounter Summary ---
Author Organization [facility] Address [address] [place] [address] Care Team Providers Care Ambulette Driver Name Role Phone Leandra Helms PA-C Primary Care Provider Encounter Details Date Type Department Care Team (Late st Contact Info) Description 06/15/2024 Telephone [facility] - Pulmonology [address] 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 Asking if she would need to be seen again to get it. Asking for a call from the office. Patient call back number is [phone] RHOUSE ENGINEER documented in this encounter Plan of Treatment Upcoming Encounters Date Type Department Care Team (Late st Contact Info) Description 05/19/2025 9:30 AM CDT Office Visit [facility] - Pulmonology [address] [facility] [place] [address] Jo Carrillo, DO [facility] [address] [facility] [place] [address] documented as of this encounter Visit Diagnoses Not on filedocumented in this encounter Care Teams Ambulette Driver Relationship Specialty Start Date End Date Leandra Helms PA-C [address] [place] [phone] PCP - General 05/31/21 documented as of this encounter
--- OUTSIDE RECORDS SUMMARY | 2024-11-19 17:31 | XMS_ITS | Data Portability ---
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 Name Role Phone ANTWAN ANNA Primary Care Provider WILFRIDOANTWAN IBARRA Referring Provider [phone] Assessment Encounter Date Assessment Date Assessment LastModified by Organization Details LastModified Time 01/03/2023 01/03/2023 Assessment: Severe OSAHS, AHI = 45 Plan: The following were reviewed and explained to the patient: [facility] diagnostic sleep study 08/11/22 AHI = 45, supine AHI = 58 [facility] titration sleep study 09/23/22 Arthur medium Vitera full face mask @ 12-20 cmH2O Recommend the patient to dose her quetiapine earlier and then put on the CPAP mask to get acclimatized to it with lesser anxiety. PAP compliance downloaded and interpreted x 20 minutes. Data reviewed and explained to the patient. Average apnea/hypopnea index (AHI) is 1.8. Patient used PAP > 4 hours 40% of the time. PAP is set at 11-15 cmH2O. PAP will remain at 11-15 cmH2O. Oxygen supplementation: none Patient is benefiting from PAP therapy. Encouraged patient to maintain PAP use more than 70% of the time. Statement of PAP use and benefits will be sent to the home care store. Educated the patient on problems and solutions associated with positive airway pressure (PAP) use. Difficulty tolerating pressure, mask leaks, intolerance of interface, nasal congestion, claustrophobic response, dry mouth, and unintentional mask removal during sleep were covered. Patient has some difficulty tolerating pressure. Patient is advised to practice wearing PAP daily while awake, lower pressure with or without sleeping on sides, activate PAP ramp feature, have blower checked to make sure pressure is set as prescribed and return to sleep center for consideration of auto-adjusting PAP therapy. Patient's mask leaks air. We will ensure the mask is situated properly. Patient can wear protective eye covering during sleep, and the mask can be resized. Patient has intolerance to interface. Patient will loosen mask slightly, ensure mask is situated properly, inspect and replace interface if worn out, use barrier such as moleskin or bandage for irritation at bridge of nose, have a temporary holiday from PAP, resize mask or obtain an oral interface. We will change her over-the nose full face mask to an [id number] full face mask. Patient experiences claustrophobic response. Patient will practice wearing PAP mask daily while awake and undergo PAP desensitization. We will check fit of patient's mask and provide a sleeker alternative as necessary. Dry mouth is a normal occurrence for people who just start out on PAP therapy because they are not used to air blowing in to the throat to hold open. Dry mouth is exacerbated for people who wear nasal PAP mask and whose jaw drops open during sleep. Not only does this create a much less efficient therapy because of leakage, it also causes dry mouth. There are a couple solutions to help prevent this type of problem. A simple solution would be to wear a chinstrap which essentially holds the jaw in place. A second solution would be a switch to a full face mask which covers both the nose and mouth. Although this is another easy solution, using a full face mask for some could seem claustrophobic or confining. There is no silver bullet solution as no single mask is right for everybody. Sometimes it takes a bit of experimentation to find a PAP mask which best meets the patient's needs as well as fits comfortably. Another tactic is to use a humidifier on your PAP machine. Most new PAP machines have integrated humidifiers. Humidification is krishnamurthy when dealing with symptoms of dry mouth because the humidifier can supply both warm and room temperate air. Even a small amount of humidity in the airflow will help nasal passages to stay hydrated. If a person is using both a full face mask and a PAP machine with a heated humidifier and is still experiencing dry mouth, an ill-fitted PAP mask might be causing the problem. Leakage can be caused by a mask that is to large or small, the wrong style mask, the cushion is degraded or simply because the mask's straps aren't adjusted correctly. If leakage occurs, dry air from the room can leak in while humidification escapes. The result is reduced humidification within the circuit and resulting in dry throat and mouth. Finally, beyond factors involving the PAP machine and mask, dry mouth can also be caused or worsened by dehydration. The general recommendation to during eight 8 oz. glasses of water a day might be too little for many people. When people drink large amounts of coffee or other caffeine beverages, or sweat a lot during the day, making sure to rehydrate is an important part of PAP therapy. Patient tends to take of the PAP mask during sleep. We reassured patient that this is common. We address all other areas of headgear/nasal interface problems, especially nasal congestion. Patient can use humidification +/- chinstrap, put low-pressure alarm on blower unit to awaken patient to reposition mask and set alarm at night for patient to check headgear. Provided the patient with a list of local home care stores where positive airway pressure (PAP) units, accouterments, and services are available. Home care store selection is based on patient's insurance carrier. Patient will setup an appointment with [facility] for supplies and pressure adjustments. A major predictor of success with use of PAP is follow-up with both the respiratory supplier and the treating physician. The respiratory supplier optimally will follow-up within two weeks after starting use while the treating physician optimally will follow-up within 90 days after starting therapy to assess adherence and effectiveness of treatment. The download results can show the treating physician information about adherence to treatment, residual AHI while on treatment and presence of large mask leakage. This information is especially helpful if the patient has residual sleepiness despite treatment. General information on sleep disordered breathing, evaluation of sleep disordered breathing, treatment with PAP therapy, and living with PAP therapy were covered. We discussed with the patient the impact of weight on: Sleep disordered breathing Hyperlipidemia Hypertension DM PE WISAM Urge urinary incontinence Bilateral varicose veins We discussed with the patient the benefit of PAP therapy on: Sleep disordered breathing Bipolar depression/Anxiety Rhinitis Hypertension DM WISAM Urge urinary incontinence Educated the patient on sleep hygiene measures. Relaxing rituals to rest easy, understanding foods with positive and negative impact on sleep, creating a peaceful sleep environment, timing of exercise, using herbal sleep aids, and practicing sleep-friendly meditation were covered. To determine how much sleep is needed, the patient will assess where (s)he falls on the spectrum, examine what lifestyle factors such as work schedules and stress are affecting the quality and quantity of sleep. In general, adults need 7-9 hours of sleep. Educated the patient regarding foods that promote sleep. These include but are not limited to cherries, bananas, toast, oatmeal, and warm milk. Educated the patient regarding foods and drinks to avoid before bedtime. These include but are not limited to aged cheese, chocolate, spicy foods, tomato-based sauces, soy, ginseng tea and processed meat. Advocated influenza vaccination annually and pneumonia vaccination CLARITZA. Advocated weight loss through diet and exercise. Patient's ideal body weight according to height and gender is up to 145 lbs. Encouraged patient to adjust caloric intake to maintain/achieve ideal body weight, emphasizing on fruits, vegetables, whole grains, and fat-free or low-fat products. These include lean meats, poultry, fish, beans, eggs, and nuts and foods that are low in saturated fats, trans-fats, cholesterol, salt (sodium), and glycemic index. Stressed the importance of regular exercise up to the patient's capacity limits. In this case, we recommend 20 min daily walking, 2 days a week of resistance training. Patient to monitor BP daily and bring records to PCP for further management. Follow-up: 1 year, December 2023 [email or web address] Not available 01/03/2023 14:08:26 01/21/2024 01/21/2024 This note is dictated and transcribed by [employer]. Hose Tubing Backer variances may occur. Despite proofreading, typographical errors may occur. Occasional wrong-word or 'pcqni-w-cdvh' substitutions may have occurred due to the inherent limitations of voice recording. Read the chart carefully and recognize, using context, where substitutions have occurred. Not available 01/22/2024 15:23:49 04/23/2024 04/23/2024 This note is dictated and transcribed by [employer]. Hose Tubing Backer variances may occur. Despite proofreading, typographical errors may occur. Occasional wrong-word or 'stsat-s-zotc' substitutions may have occurred due to the inherent limitations of voice recording. Read the chart carefully and recognize, using context, where substitutions have occurred. Not available 04/23/2024 14:37:56 08/06/2024 08/06/2024 This note is dictated and transcribed by [employer]. Hose Tubing Backer variances may occur. Despite proofreading, typographical errors may occur. Occasional wrong-word or 'ntvja-g-jrif' substitutions may have occurred due to the inherent limitations of voice recording. Read the chart carefully and recognize, using context, where substitutions have occurred. [email or web address] Not available 08/06/2024 14:56:47 Plan of Treatment Reminders Order Date Submit Date Provider Last Modified By Organization Details Last Modified Time Details Appointments Establish ed Patient 15 2024 09:30A M Alexi Villela DPM Not available Not available Not available Lab None recorded. Referral None recorded. Procedures None recorded. Surgeries None recorded. Imaging None recorded. Medication Orders None recorded. Patient TargetsNo targets recorded. Patient Instructions Encounter Date Encounter Id Patient Instructions Last Modified By Organization Details Last Modified Time 10/08/2023 [id number] diabetic foot care education ayde Not available 10/08/2023 13:39:57 diabetic neuropathy: care instructions ayde Not available 10/08/2023 13:39:57 08/06/2024 [id number] diabetic foot care education ayde Not available 08/06/2024 14:58:12 Reason for Referral None Reported. Problems Name Problem SNOMED Code Status Onset Date Resolution Date Notes Provider Name and Address Organization Details Recorded Time Varicose veins of bilateral lower limbs 9259480003857 9106 Active 2021 Not Available [facility] 3 23:08:37 Long-term current use of anticoagul ant 838571785 Active 2021 Not Available [facility] 3 23:08:37 Diabetes mellitus 88075096 Active Not Available [facility] 3 23:08:37 Obstructiv e sleep apnea syndrome 08804219 Active 2022 Nathan Keller MD [address], [place], [address] , [facility] 3 14:57:28 Dystrophia unguium 04226644 Active 2023 Alexi Villela DPM [address], [place], [address] , [facility] 4 13:39:23 Peripheral venous insufficie ncy 02364723 Active 2023 Alexi Villela DPM [address], [place], [address] , [facility] 4 13:39:28 Foot callus 686284357 Active 2023 Alexi Villela DPM [address], [place], [address] , [facility] 4 14:37:20 Congenital pes planus 52647673 Active 2023 Alexi Villela DPM [address], [place], [address] , [facility] 4 14:37:40 Pain in both feet 3049027141080 9102 Active 2023 Alexi Villela DPM [address], [place], [address] , [facility] [employer] [facility] [employer] [facility] 4 14:37:48 Peroneal tendinitis of right lower limb 1356004178340 09 Active 2024 Alexi Villela DPM [address], [place], [address] , [facility] 5 14:56:55 Venous varices 432266090 Active 2024 Alexi Villela DPM [address], [place], [address] , [facility] 5 14:57:56 Notes:Medical History: Intel lectual disability Bipolar depression/Anxiety Rhinitis Obesity with severe OSAHS, AHI = 45, 08/11/22, on autoCPAP c/o IVRC Hypothyroidism Hyperlipidemia Hypertension T2DM PE on Eliquis Hiatal hernia with WISAM Urge urinary incontinence Bilateral varicose veins Onychomycosis Procedure History: Left leg ligament surgery 1983 Partial thyroidectomy 2003 Left lumpectomy + radiation for breast ca 2004 Cholecystectomy 2013 Left knee replacement 2016 Colonoscopy with polypectomy 2021 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 Please review this document and add these problems to the patient's chart manually as needed. Problem Notes None recorded. Procedures Surgical History Date Name Laterality Status Provider Name and Address Organization Details Recorded Time 08/06/19 25 Plantar Fascia Injection Right Foot completed Alexi Villela DPM [address], [place], [address], [facility] 08/06/2024 14:56:39 04/23/20 24 Nail Debridement completed Alexi Villela DPM [address], [place], [address], [employer] 06/04/2024 09:06:11 04/23/20 24 Callus Debridement 2-4 completed Alexi Villela DPM [address], [place], [address], [employer] 04/23/2024 14:37:08 01/21/20 24 Nail Debridement completed Alexi Villela DPM [address], [place], [address], [employer] 01/22/2024 15:23:43 10/08/19 24 Nail Debridement completed Alexi Villela DPM [address], [place], [address], [employer] 10/08/2023 13:39:09 Knee Replacement completed Shahla Anderson [facility] 10/08/2023 10:26:13 Knee Surgery completed Shahla Anderson [facility] 10/08/2023 10:26:23 Breast Surgery completed Shahla Anderson [facility] 10/08/2023 10:26:32 Imaging Results None recorded. Procedure Notes None recorded. Medical Equipment None Reported. Allergies Allergen ID Allergen Name Allergen Category Reaction Reaction Severity Criticality Documentation Date Start Date Code Code System Note Provider Name and Address Organization Details Recorded Time 87458 Product containin g penicilli n (product) medicatio n rash Not available Not available 09/19/2022 46146 8001 SNOMED Not Available [facility] 3 23:12:13 05260 peanut allergeni c extract food,medi cation hives Not available Not available 09/19/2022 18850 8 RxNorm Not Available [facility] 3 23:12:13 24824 ibuprofen medicatio n vomiting Not available Not available 09/19/2022 5640 RxNorm Not Available [facility] 3 23:12:13 22574 egg extract food,medi cation rash Not available Not available 09/19/2022 03382 15 RxNorm Not Available [facility] 3 23:12:13 69485 codeine medicatio n nausea Not available Not available 09/19/2022 2670 RxNorm Not Available [facility] 3 23:12:13 33601 broccoli preparati on food vomiting Not available Not available 09/19/2022 52553 8 RxNorm Not Available [facility] 3 23:12:13 10269 Tylenol medicatio n nausea Not available Not available 09/19/2022 84681 3 RxNorm Not Available [facility] 3 23:12:14 Medications Name Sig Start Date Stop Date Status Note LastModified by Organization Details LastModified Time losartan 50 mg tablet TAKE 1 TABLET BY MOUTH DAILY active Not Available Not Available No t Available metformin 500 mg tablet TAKE 1 TABLET BY MOUTH TWICE DAILY active Not Available Not Available No t Available levothyroxi ne 175 mcg tablet TAKE 1 TABLET BY MOUTH EVERY DAY 30 MINUTES TO 1 HOUR BEFORE A MEAL active Not Available Not Available No t Available carvedilol 6.25 mg tablet TAKE 1 TABLET BY MOUTH TWICE DAILY 10/07 completed Not Available Not Available Not Available atorvastati n 20 mg tablet TAKE 1 TABLET BY MOUTH DAILY active Not Available Not Available No t Available carvedilol 12.5 mg tablet TAKE 1 TABLET BY MOUTH TWICE DAILY active Not Available Not Available No t Available naproxen 375 mg tablet TAKE 1 TABLET BY MOUTH TWICE DAILY NEEDED 08/13 completed Not Available Not Available Not Available ofloxacin 0.3 % eye drops active Not Available Not Available Not Available valacyclovi r 1 gram tablet TAKE 1 TABLET BY MOUTH DAILY active Not Available Not Available No t Available polysacchar alphonso iron complex 150 mg iron capsule TAKE 1 CAPSULE BY MOUTH ONCE DAILY 08/13 completed Not Available Not Available Not Available meclizine 12.5 mg tablet TAKE 1 TABLET BY MOUTH TWICE DAILY NEEDED active Not Available Not Available No t Available acyclovir 400 mg tablet 08/13 completed Not Available Not Available Not Available omeprazole 40 mg capsule,del ayed release 08/13 completed Not Available Not Available Not Available quetiapine 100 mg tablet TAKE 1 TABLET BY MOUTH EVERY NIGHT AT BEDTIME active Not Available Not Available No t Available acetaminoph en 500 mg tablet active Not Available Not Available Not Available acyclovir 800 mg tablet TAKE 1 TABLET BY MOUTH EVERY DAY 12/03 completed Not Available Not Available Not Available ketorolac 0.5 % eye drops active Not Available Not Available Not Available prednisolon e acetate 1 % eye drops,suspe nsion active Not Available Not Available Not Available Ear Wax Removal Drops 6.5 % 08/13 completed Not Available Not Available Not Available ciprofloxac in 0.3 % eye drops INSTILL 2 DROPS INTO THE LEFT EAR QID 08/13 completed Not Available Not Available Not Available OneTouch Ultra Test strips USE ONCE DAILY active Not Available Not Available No t Available meclizine 25 mg tablet TAKE 1 TABLET BY MOUTH TWICE DAILY NEEDED FOR DIZZINESS 10/07 completed Not Available Not Available Not Available cephalexin 500 mg capsule TAKE 1 CAPSULE BY MOUTH EVERY 6 HOURS FOR 7 DAYS 12/03 completed Not Available Not Available Not Available pantoprazol e 40 mg tablet,bradly yed release TAKE 1 TABLET BY MOUTH EVERY DAY active Not Available Not Available No t Available buspirone 10 mg tablet TK 1 T PO BID WC 08/13 completed Not Available Not Available Not Available losartan 25 mg tablet TAKE 1 TABLET BY MOUTH DAILY active Not Available Not Available No t Available hydrochloro thiazide 12.5 mg capsule TAKE 1 CAPSULE BY MOUTH EVERY DAY active Not Available Not Available No t Available omeprazole 20 mg capsule,del ayed release TAKE 1 CAPSULE BY MOUTH EVERY DAY active Not Available Not Available No t Available montelukast 10 mg tablet TAKE 1 TABLET BY MOUTH EVERY DAY 10/07 completed Not Available Not Available Not Available levothyroxi ne 200 mcg tablet TAKE 1 TABLET BY MOUTH EVERY EVENING 10/07 completed Not Available Not Available Not Available acyclovir 200 mg capsule TK 1 C PO D 08/13 completed Not Available Not Available Not Available albuterol sulfate HFA 90 mcg/actuati on aerosol inhaler INHALE 2 PUFFS BY MOUTH FOUR TIMES DAILY NEEDED active Not Available Not Available No t Available losartan 100 mg tablet TAKE 1 TABLET BY MOUTH EVERY DAY 10/07 completed Not Available Not Available Not Available naproxen 500 mg tablet TAKE 1 TABLET BY MOUTH TWICE DAILY WITH FOOD 08/13 completed Not Available Not Available Not Available buspirone 15 mg tablet TAKE 1 TABLET BY MOUTH TWICE DAILY AROUND THE CLOCK FOR ANXIETY active Not Available Not Available No t Available hydroxyzine pamoate 25 mg capsule TK 1 C PO TID PRN 10/07 completed Not Available Not Available Not Available bupropion HCl SR 200 mg tablet,12 hr sustained-r elease TK 1 T PO BID 08/13 completed Not Available Not Available Not Available cyclobenzap rine 5 mg tablet active Not Available Not Available Not Available bupropion HCl XL 300 mg 24 hr tablet, extended release TAKE 1 TABLET BY MOUTH EVERY DAY IN THE MORNING active Not Available Not Available No t Available bupropion HCl XL 150 mg 24 hr tablet, extended release TAKE 1 TABLET BY MOUTH EVERY DAY IN THE MORNING active Not Available Not Available No t Available calcium 10/07 completed Not Available Not Available Not Available hydrochloro thiazide active Not Available Not Available Not Available Tylenol 08/13 completed Not Available Not Available Not Available Ventolin HFA active Not Available Not Available Not Available quetiapine 50 mg tablet TAKE 1 TABLET BY MOUTH EVERY DAY AT BEDTIME 12/03 completed Not Available Not Available Not Available cyclobenzap rine 7.5 mg tablet TAKE 1 TABLET BY MOUTH TWICE DAILY FOR 10 DAYS NEEDED 10/07 completed Not Available Not Available Not Available Eliquis 5 mg tablet TAKE 1 TABLET BY MOUTH TWICE DAILY active Not Available Not Available No t Available Farxiga 5 mg tablet TAKE 1 TABLET BY MOUTH 1 TIME EACH DAY 12/03 completed Not Available Not Available Not Available Centrum Silver Women 10/07 completed Not Available Not Available Not Available OneTouch Ultra Blue Test Strip USE TO TEST TWICE DAILY 08/13 completed Not Available Not Available Not Available OneTouch Ultra2 Meter USE TO TEST TWICE DAILY 08/13 completed Not Available Not Available Not Available OneTouch Delica Plus Lancet 33 gauge CHECK ONCE DAILY active Not Available Not Available No t Available OneTouch Delica Plus Lancet 30 gauge USE TO TEST TWICE DAILY 08/13 completed Not Available Not Available Not Available Vitals Date Recorded Body height Body mass index (BMI) Body weight Body temperature Heart rate Oxygen saturation Oxygen saturation in Arterial blood by Pulse oximetry Systolic blood pressure Diastolic blood pressure Provider Name and Address Organization Details Last Updated DateTime 3 170.18 cm 44.6 kg/m2 877395. 83 g 98.2 [degF] 79 /min 97 % 97 % 118 mm[Hg] 80 mm[Hg] Katia Rene MA [employer] [facility] 3 14:02:00 Date Recorded Respiratory rate Heart rate Provider N anya and Address Organization Details Last Updated DateTime 01/03/2023 15 /min 79 /min Nathan Keller MD [address] [place] [address], [address], [facility] 01/03/2023 14:09:08 Date Recorded Body height Body mass index (BMI) Body weight Provider Name and Address Organization Details Last Updated DateTime 10/08/2023 162.56 cm 44.1 kg/m2 283295.24 g Shahla Anderson [employer] [facility] 10/08/2023 10:22:56 Date Recorded Heart rate Respiratory rate Oxygen saturation Oxygen saturation in Arterial blood by Pulse oximetry Systolic blood pressure Diastolic blood pressure Provider Name and Address Organization Details Last Updated DateTime 4 73 /min 16 /min 97 % 97 % 99 mm[Hg] 54 mm[Hg] Talita Griffiths [facility] 4 10:58:55 Date Recorded Body height Heart rate Systolic blood pressure Diastolic blood pressure Provider Name and Address Organization Details Last Updated DateTime 01/21/2024 162.56 cm 78 /min 139 mm[Hg] 93 mm[Hg] MILLI Nelson [employer] [facility] 01/21/2024 14:00:54 Date Recorded Body height Body mass index (BMI) Body weight Heart rate Respiratory rate Oxygen saturation Oxygen saturation in Arterial blood by Pulse oximetry Systolic blood pressure Diastolic blood pressure Provider Name and Address Organization Details Last Updated DateTime 4 162.56 cm 44.1 kg/m2 229479. 24 g 61 /min 14 /min 98 % 98 % 119 mm[Hg] 72 mm[Hg] Talita Griffiths [facility] [employer] [facility] 4 14:02:41 Date Recorded Body height Body mass index (BMI) Body weight Heart rate Respiratory rate Oxygen saturation Oxygen saturation in Arterial blood by Pulse oximetry Systolic blood pressure Diastolic blood pressure Provider Name and Address Organization Details Last Updated DateTime 5 162.56 cm 44.1 kg/m2 239335. 24 g 80 /min 14 /min 98 % 98 % 146 mm[Hg] 77 mm[Hg] Talita Griffiths [facility] 5 14:16:06 Social History Question Answer Notes LastModified by Organizat ion Details LastModified Time Tobacco Smoking Status Former Smoker Not Available [facility] 09/19/2022 23:05:40 What Is Your Level Of Alcohol Consumption? None Information not available 12/03/2022 What Is Your Level Of Caffeine Consumption? Occasional Information not available 12/03/2022 In The 14 Days Before Symptom Onset, Have You Had Close Contact With A Laboratory-confir med COVID-19 While That Case Was Ill? No Information not available 12/03/2022 In The 14 Days Before Symptom Onset, Have You Had Close Contact With A Person Who Is Under Investigation For COVID-19 While That Person Was Ill? No Information not available 12/03/2022 What Type Of Diet Are You Following? REGULAR Information not available 12/03/2022 Do You Have An Electrostatic Air Filter? Yes Information not available 12/03/2022 Do You Have A Humidifier? Yes Information not available 12/03/2022 Do You Have Moisture Problems In Your Home? No Information not available 12/03/2022 What Was The Date Of Your Most Recent Tobacco Screening? 01/03/2023 Information not available 01/03/2023 Do You Have Any Pets? No Information not available 12/03/2022 Do You Use Your Seat Belt Or Car Seat Routinely? Yes Information not available 12/03/2022 Do You Have Smoke And Carbon Monoxide Detectors In Your Home? Yes Information not available 12/03/2022 Are You Passively Exposed To Smoke? No Information no t available 12/03/2022 Do You Use Any Illicit Or Recreational Drugs? No Information not available 12/03/2022 Do You Use Sunscreen Routinely? No Information not available 12/03/2022 Have You Recently Traveled Abroad? No Information not available 12/03/2022 Do You Have Any Dietary Restrictions? No Information not available 12/03/2022 Sex: Unknown Functional Status None recorded. Mental Status None recorded. Family History Relationship Description Onset Age of this Age Resolved Age Notes LastModified by Organization Details LastModified Time Son Sickle cell-hemoglo bin SS disease [id number] Not available 09/19/2022 23:06:17 Son Obstructive sleep apnea syndrome [email or web address] Not available 2022 14:51:32 Medical History Condition Response THYROID DISEASE Y HEADACHES/MIGRAINES Y USE OF BLOOD THINNERS Y OBESITY Y ANEMIA/BLOOD DISORDER Y DIZZINESS Y DIABETES, TYPE Y ALLERGIES/HAYFEVER Y BACK / NECK PROBLEMS Y DEPRESSION (INCLUDING POST ) Y STROKE/TIA Y Gynecological HistoryNo gynecological history recorded. Obstetrics History GPAL:G 0 P 0 0 0 0 Past Encounters Encounter ID Performer Location Encounter Start Date Encounter Closed Date Diagnosis/Indication Diagnosis SNOMED-CT Code Diagnosis ICD10 Code Diagnosis Note [id number] [facility] [place] [address] [place] [address] 12/29/2020 00:00:00 12/30/2020 08:18:58 [id number] [facility] [place] [address] [place] [address] 04/06/2021 00:00:00 04/06/2021 13:44:18 [id number] [facility] [place] [address] [place] [address] 08/03/2021 00:00:00 08/03/2021 12:05:33 [id number] [facility] [place] [address] [place] [address] 11/02/2021 00:00:00 11/02/2021 14:47:56 [id number] [facility] [place] [address] [place] [address] 04/16/2022 00:00:00 04/17/2022 14:43:04 [id number] Nathan Keller MD [facility] [address] 12/03/2022 14:14:25 12/04/2022 08:27:10 Obstructive sleep apnea syndrome 33902990 G47.33 [id number] Nathan Keller MD [facility] [address] 01/03/2023 13:46:59 01/07/2023 08:51:53 Obstructive sleep apnea syndrome 18353801 G47.33 [id number] Alexi Villela DPM [facility] [address] [address] 10/08/2023 10:18:30 10/08/2023 15:04:37 Diabetes mellitus 22535881 E11.9 continue diabetic control per PCP Dystrophia unguium 08809 009 L60.3 nails debrided without incident Peripheral venous insufficiency 30180531 I87.2 educated on chronic compressio n therapyRig ht recommend continuing chronic compressio n daily [id number] Alexi Villela DPM [facility] [address] [address] 01/21/2024 13:52:07 01/24/2024 09:45:35 Diabetes mellitus 63571647 E11.9 continue diabetic control per PCP Dystrophia unguium 28527 009 L60.3 nails debrided without incident Peripheral venous insufficiency 22481522 I87.2 educated on chronic compressio n therapyRig ht recommend continuing chronic compressio n daily [id number] Alexi Villela DPM [facility] [place] [address] [place] [address] 04/23/2024 13:41:35 07/17/2024 09:18:07 Diabetes mellitus 93796558 E11.9 continue diabetic control per PCP Pain in both feet 961768 3839 0617924 M79.671 M79.672 secondary to below Foot callus 936441242 L8 4 debrided without incidentus e pumice stone daily to the area Congenital pes planus 23 266373 Q66.50 recommend [employer] [place] low arch orthoticsc ontinue supportive shoe gear Dystrophia unguium 50621 009 L60.3 nails debrided without incident [id number] Alexi Villela DPM [facility] [place] [address] [address] 08/06/2024 14:12:50 08/17/2024 11:02:42 Peroneal tendinitis of right lower limb 5855835949 32394 M76.71 educated on conditionR ice therapyMin imal activities Steroid injection todayConti nue supportive shoe gearFollow -up as needed Diabetes mellitus 488882 09 E11.9 continue diabetic control per PCP Dystrophia unguium 80679 009 L60.3 nails debrided without incident Venous varices 623805582 I86.8 educated on conditionE ducated on treatment options- denied referral Health Concerns Section Related Observation LastModified by Organization Detai ls LastModified Time None Recorded Concern Status LastModified by Organization Details LastModified Time None Recorded Advance Directives Directive None Recorded Payers Encounter Date Sequence Insurance Name Policy Number Policy Lala Covered Member ID Lala Member ID Guarantor Name 01/03/2023 1 [facility] ON OR AFTER 01/19/21 (MEDICAID REPLACEMENT - HMO) Yandy Bustamante [id number] Yandy Bustamante 10/08/2023 1 [facility] ON [facility] AFTER 01/19/21 (MEDICAID REPLACEMENT - HMO) Yandy Bustamante [id number] Yandy Bustamante 01/21/2024 1 [facility] ON OR AFTER 01/19/21 (MEDICAID REPLACEMENT - HMO) Yandy Bustamante [id number] Yandy Bustamante 04/23/2024 1 [facility] ON OR AFTER 01/19/21 (MEDICAID REPLACEMENT - HMO) Yandy Bustamante [id number] Yandy Bustamante 08/06/2024 1 [facility] ON OR AFTER 01/19/21 (MEDICAID REPLACEMENT - HMO) Yandy Bustamante [id number] Yandy Bustamante Notes Date Note Type Note Provider Name and Address Organization Details Recorded Time 01/03/2023 text/html Primary care/Ref erring provider: Antwan Anna PA-C CC: I could not stand my [id number] full face mask but I do breathe with my mouth as well. I like the new [id number] full face mask although I still have anxiety spells. During the [facility] diagnostic sleep study on 08/11/22, AHI = 45, supine AHI = 58. At home since 12/03/22, the patient uses a ResMed AirSense 10 autoset unit with heated humidification. The patient does not need the ramp to start low and go up slowly on the pressure anymore. There is some xerostomia in a.m. There is no hose/mask condensation with water.The patient switched from a [employer] medium Vitera full face mask to a ResMed medium AirFit F30i full face mask without chin strap. There is no claustrophobia, no nostril/nose bridge irritation, no facial rash, no facial numbness, no nosebleeding. The patient feels more refreshed upon waking and daytime alertness is improved. Energy levels are sustained until early afternoon, around 1 pm. At home, the patient sleeps from 10 pm to 6 am and wakes up with an alarm. Snoring: moderate, since .Snorting: yesChoking: noCoughing: yesGasping: noGagging: yesSighing: noWitnessed apnea: yesTwitching or jerking of leg(s), arm(s), body, head: noTeeth grinding: n/aTeeth clenching: n/aSleeptalking: yesSleepwalking: noSleep crying: yesBedwetting: noTongue/lip/gum/cheek biting: noSleeping with open mouth: yesSleep paralysis: noHypnagogic hallucinations: noHypnopompic hallucinations: noVivid dreams: noDifficulty with sleep onset: yesDifficulty with sleep maintenance: yesSleep interruptions: for no known reasonsPatient wakes up with: fatigue, xerostomia, headaches, mobility impairmentDaytime cataplexy: noMorning hypersomnolence: noAfternoon hypersomnolence: yesCaffeine sources in diet: coffee 1 cup per day, tea 2 glasses per day, chocolate 1/4 candy per day Associated medical and psychiatric conditions:Congestive heart failure: noCoronary artery disease: noMyocardial infarction: noHypertension: yesStroke: noBronchial asthma: noChronic obstructive pulmonary disease: noDepression: yesBipolar disorder: yesAnxiety: yesPanic disorder: noPosttraumatic stress disorder: noAttention deficit and hyperactivity disorder: noObsessive Compulsive disorder: noSchizophrenia: noSchizoaffective disorder: noPersonality disorder: noChronic analgesic use: noChronic sedative/hypnotic use: no EPWORTH SLEEPINESS SCALE (ESS) CHANCE OF DOZING SCORE0 = would never doze1 = slight chance of dozing2 = moderate chance of dozing3 = high chance of dozing SITUATION AND CHANCE OF DOZINGSitting and reading - 1Watching television - 1Sitting inactive in a public place (e.g. a theater or meeting) - 0As a passenger in a car for an hour without a break - 1Lying down to rest in the afternoon when circumstances permit - 0Sitting and talking to someone - 0Sitting quietly after lunch without alcohol - 0In a car, while stopped for a few minutes in the traffic - 0TOTAL SCORE 3Subjectively, patient has a slight chance of dozing. Nathan Keller MD [address] [place] [address], [phone], [place] [facility] 01/03/2023 14:09:21 10/08/2023 text/html . Patient is a 67-year-old female diabetic who presents the office with complaints of diabetic foot care. Patient states that she would like to explore diabetic shoes. Patient denies any numbness tingling or burning of the feet. Patient any history of foot wounds. Patient denies any foot pain. Patient denies any other complaints. Alexi Villela DPM [address], [place], [address], [place] 10/08/2023 13:40:12 01/21/2024 text/html . Patient is a 68-year-old female who returns the office for routine foot care diabetes. Patient states that her feet have been doing well she denies any open wounds or infection. Patient would like her nails cut as she is unable to bend over to cut them. Patient denies any other complaints. Alexi Villela DPM [address], [place], [address], [place] 01/22/2024 15:24:11 04/23/2024 text/html . Patient is a 68-year-old female she presents the office for diabetic foot care. Patient has bilateral heel calluses which he states caused her pain she denies wearing any orthotics I did explain that she needs to wear them due to her flat feet. Patient denies any injury or wounds to the foot. Patient denies any drainage to the foot. Patient states the calluses become thick with walking and become painful. Patient denies any other complaints. Alexi Villela DPM [address], [place], [address], [place] 06/04/2024 09:06:36 08/06/2024 text/html . Patient is a 68-year-old female diabetic shoe returns the office for routine diabetic foot care. Patient states overall she is doing well she denies any injury or wounds to the foot. Patient denies any intermittent claudication she states that she has a lot of left knee pain due to injury and failed surgery. Patient states that she also has discomfort in the right foot at 5th metatarsal base she did again denies any injury swelling or bruising she states when she is getting up from sitting she has pain in the area. Patient states the pain goes away and is only short acting in the right foot. Patient states she is also concerned about the varicosities of the left ankle area I did explain that she can go to general surgery have these further evaluated for sclerosing injections but she denied. Alexi Villela DPM [address] [address], [place], [address], [place] [facility] [place] 08/06/2024 14:58:44 OBGyn Episode No OBEpisode recorded.
--- OUTSIDE RECORDS SUMMARY | 2024-11-19 17:31 | XMS_ITS | CONTINUITY OF CARE DOCUMENT ---
Author Name skylarhellen skylarhellen Address Unknown Organization [facility] Address [address] [facility] 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 Kasi Gaines MD Hypercholesterolemia completed - Kasi Gaines MD GERD active ? Kasi Gaines MD HYPOTHYROIDISM active ? Kasi Gaines MD DEPRESSION active ? Kasi Gaines MD CHEST PAIN-05/03 CATH NL active ? Kasi banks MD OBESITY active ? Kasi Gaines MD SHORTNESS OF BREATH-08/03 SPI RO NL completed - [place] COPD active Kasi Gainse MD History of Breast CA - S/P L eft Lumpectomy and RADIOTHERAPY 2010 active Kasi Gaines MD Tobacco use, quit active Kasi Gaines MD Palpitations completed - Kasi Gaines MD Dizziness active Kasi Gaines MD Pulmonary embolism active Beata Sherman Hiatus hernia active Beata Sherman Anemia active Beata Sherman Hyperlipidemia active Beata Sherman SVT active Kasi Gaines MD Vaginal bleeding active Marianna Valverdemiglchey SMOKE CONTROL SUPERVISOR Pre op cardiovascular exam active Maria Alejandra Mccormick BEHAVIORAL HEALTH CARE MANAGER ENCOUNTERS Date Type Provider Location Encounter Diag nosis 04/20 - 04/21 In-person encounter Office Visit Kasi Gaines MD [facility] Office 02/12 - 02/18 In-person encounter Office Visit Kasi Gaines MD [place] [facility] 11/13 - 11/14 In-person encounter Office Visit Kasi Gaines MD [facility] Pre op cardiovascular exam 08/01 - 08/07 In-person encounter Office Visit Kasi Gaines MD [facility] Vaginal bleeding 06/26 - 06/26 In-person encounter Office Visit Kasi Gaines MD [facility] HypercholesterolemiaPalpitationsSVT 08/02 - 08/02 In-person encounter Office Visit Kasi Gaines MD [facility] 07/13 - 07/18 In-person encounter Office Visit Kasi Gaines MD [facility] 01/12 - 01/12 In-person encounter Office Visit Kasi Gaines MD [facility] Pulmonary embolismHiatus herniaAnemiaHyp erlipidemia 01/13 - 01/13 In-person encounter Office Visit Kasi Gaines MD [facility] SHORTNESS OF BREATH-08/03 JOSE RAFAEL NL 11/13 - 11/14 In-person encounter Office Visit Kasi Gaines MD [facility] 11/14 - 11/15 In-person encounter Office Visit Kasi Gaines MD [facility] 10/10 - 10/21 In-person encounter Office Visit Kasi Gaines MD [facility] Dizziness 11/28 - 11/29 In-person encounter Office Visit Kasi Gaines MD [facility] Tobacco use, quit 03/29 - 03/29 In-person encounter Office Visit Kasi Gaines MD [facility] 11/29 - 11/29 In-person encounter Office Visit Kasi Gaines MD [facility] 10/27 - 10/28 In-person encounter Office Visit Kasi Gaines MD [facility] Tobacco use, quit 09/02 - 09/07 In-person encounter Office Visit Kasi Gaines MD [facility] History of Breast CA - S/P Left Lumpecto my and RADIOTHERAPY 2010 01/27 - 01/29 In-person encounter Office Visit Kasi Gaines MD [facility] 06/03 - 06/04 In-person encounter Office Visit Kasi Gaines MD [place] [facility] HYPERTENSION-08/03 ECHO MILD LVH:RENAL DU P NEGHypercholesterolemiaCHEST PAIN-05/03 CATH NLCOPD 08/06 - 08/07 In-person encounter Office Visit Kasi Gaines MD [place] [facility] HYPERTENSION-08/03 ECHO MILD LVH:RENAL DU P NEGHypercholesterolemiaGERDHYPOTHYROIDISMDEPRESSION CHEST PAIN-05/03 CATH NLOBESITY VITAL SIGNS Date Observation Value Provider Body Mass Index (Ratio) 43.10 kg/m2 Colin Hendricks blood pressure, diastolic 100 mm[Hg] Li nkLogic blood pressure, systolic 156 mm[Hg] Vivi kLogic blood pressure, diastolic 100 mm[Hg] Ky manolo [place] blood pressure, systolic 156 mm[Hg] Kyl ia [place] oxygen saturation, oximetry 97 % Amarilysa Juan pulse rate 76 /min Amarilysa Juan respiratory rate E&M 14 /min Sara love weight E&M 259 [lb_av] Amarilysa Juan blood pressure, cuff size regular Ky manolo Juan height E&M 65 [in_i] Sara Juan Body Mass Index (Ratio) 42.26 kg/m2 Drake Gaines MD blood pressure, diastolic 73 mm[Hg] Li nkLogic blood pressure, systolic 127 mm[Hg] Vivi blood pressure, diastolic 73 mm[Hg] Ja rret blood pressure, systolic 127 mm[Hg] Jar ret pulse rate 68 /min Bryan blood pressure, cuff size large Ja rret oxygen saturation, oximetry 97 % Bryan weight E&M 254 [lb_av] Bryan respiratory rate E&M 16 /min Bryan height E&M 65 [in_i] Bryan y Body Mass Index (Ratio) 41.76 kg/m2 Drake Gaines MD pulse rate 68 /min Ryan Adriano respiratory rate E&M 16 /min Ryan Adriano oxygen saturation, oximetry 94 % Ryan Adriano blood pressure, cuff size regular Do nnell Adriano blood pressure, diastolic 76 mm[Hg] Do nnell Adriano blood pressure, systolic 126 mm[Hg] Rojelio mendoza Adriano weight E&M 251 [lb_av] Ryan Adriano height E&M 65 [in_i] Ryan Adriano Body Mass Index (Ratio) 43.10 kg/m2 Lauri Horton blood pressure, diastolic 72 mm[Hg] Li nkLogic blood pressure, systolic 124 mm[Hg] Vivi kLogic pulse rate 71 /min Bryan y blood pressure, cuff size large Ja rret blood pressure, diastolic 72 mm[Hg] Ja rret /11 blood pressure, systolic 124 mm[Hg] Shante respiratory rate E&M 12 /min oxygen saturation, oximetry 97 % Bryan weight E&M 259 [lb_av] Bryan y height E&M 65 [in_i] Bryan Body Mass Index (Ratio) 43.76 kg/m2 Drake Gaines MD blood pressure, diastolic 82 mm[Hg] Tonja nkLogic blood pressure, systolic 138 mm[Hg] Vivi kLogic blood pressure, cuff size large Jayson blood pressure, diastolic 82 mm[Hg] Jayson blood pressure, systolic 138 mm[Hg] Shante [facility] pulse rate 73 /min Bryan respiratory rate E&M 16 /min Bryan oxygen saturation, oximetry 98 % Bryan weight E&M 263 [lb_av] Bryan height E&M 65 [in_i] Bryan y Body Mass Index (Ratio) 43.59 kg/m2 Colin Hendricks blood pressure, cuff size large Ri jay Traylor blood pressure, diastolic 88 mm[Hg] Ri jay Traylor blood pressure, systolic 156 mm[Hg] Luis M lubna Traylor oxygen saturation, oximetry 99 % Isabelle Traylor respiratory rate E&M 16 /min Odin Traylor pulse rate 71 /min Isabelle Brandonclay son weight E&M 262 [lb_av] Isabelle Brandonclya son height E&M 65 [in_i] Isabelle Kylah constantino Body Mass Index (Ratio) 50.25 kg/m2 Lauri Horton blood pressure, cuff size large Tr keagan Ruiz blood pressure, diastolic 70 mm[Hg] Tr keagan Ruiz blood pressure, systolic 130 mm[Hg] Try jossy Ruiz oxygen saturation, oximetry 96 % Brock Ruiz respiratory rate E&M 18 /min Brock Ruiz pulse rate 72 /min Brock Ruiz weight E&M 302 [lb_av] Brock Ruiz height E&M 65 [in_i] Brock Ruiz Body Mass Index (Ratio) 55.91 kg/m2 Grac flower AsifSherman blood pressure, diastolic 70 mm[Hg] Li nkLogic blood pressure, systolic 130 mm[Hg] Vivi kLogic blood pressure, resting Yes Sd ty Evelin blood pressure, cuff size regular Kr ispriscilla Leonby blood pressure, diastolic 70 mm[Hg] Kr isty [place] blood pressure, systolic 130 mm[Hg] Kri sttiffani Leonby oxygen saturation, oximetry 96 % Susana Leonby respiratory rate E&M 19 /min Susana Evelin pulse rate 81 /min Susana [place] weight E&M 336 [lb_av] Susana Evelin height E&M 65 [in_i] Susana Leonby Body Mass Index (Ratio) 56.41 kg/m2 Sammy marleny Nation blood pressure, diastolic 78 mm[Hg] Cy nthichristine Rodriguez blood pressure, systolic 130 mm[Hg] Marita justus Rodriguez respiratory rate E&M 18 /min Briannajustus Rodriguez pulse rate 84 /min Brianna knox oxygen saturation, oximetry 96 % Brianna Rodriguez blood pressure, cuff size regular Cy tony Rodriguez weight E&M 339 [lb_av] Brianna España l height E&M 65 [in_i] Brianna España l temperature site temporal Kaitlin Tank sley temperature E&M 97.5 [degF] Kaitlin Tanks butch Body Mass Index (Ratio) 49.75 kg/m2 Drake Gaines MD blood pressure, cuff size regular Cy tony Rodriguez blood pressure, diastolic 64 mm[Hg] Cy tony Rodriguez blood pressure, systolic 138 mm[Hg] Marita justus Rodriguez oxygen saturation, oximetry 97 % Brianna Rodriguez respiratory rate E&M 18 /min Brianna Rodriguez pulse rate 71 /min Brianna knox weight E&M 299 [lb_av] Brianna España l height E&M 65 [in_i] Brianna knox Body Mass Index (Ratio) 53.51 kg/m2 Eh Maki blood pressure, diastolic 75 mm[Hg] Rafael Gallegos blood pressure, systolic 125 mm[Hg] Yoanna Gallegos oxygen saturation, oximetry 98 % Julio Gallegos respiratory rate E&M 20 /min Raj Gallegos pulse rate 75 /min Julio zavala weight E&M 321.6 [lb_av] Julio leeon height E&M 65 [in_i] Julio zavala Body Mass Index (Ratio) 56.11 kg/m2 Bhanu Juárez blood pressure, diastolic 79 mm[Hg] Rafael Gallegos blood pressure, systolic 138 mm[Hg] Yoanna Gallegos oxygen saturation, oximetry 94 % Julio Gallegos respiratory rate E&M 20 /min Raj Gallegos pulse rate 97 /min Julio zavala weight E&M 337.2 [lb_av] Julio durbin height E&M 65 [in_i] Julio zavala Body Mass Index (Ratio) 51.58 kg/m2 Bhanu Juárez blood pressure, resting Yes Drake Gaines MD blood pressure, cuff size large Ke rri Eli blood pressure, diastolic 80 mm[Hg] Ke rri Eli blood pressure, systolic 140 mm[Hg] Michelle ri Eli oxygen saturation, oximetry 97 % Effie Eli respiratory rate E&M 18 /min Effie Cesar calhoun pulse rate 74 /min Effie Jalil er weight E&M 310 [lb_av] Effie Jeannae loveer height E&M 65 [in_i] Effie Jeannae loveer blood pressure, diastolic 80 mm[Hg] Ke rri Eli blood pressure, systolic 130 mm[Hg] Michelle ri Eli pulse rate 67 /min Effie Jalil alemaner oxygen saturation, oximetry 98 % Effie Eli respiratory rate E&M 16 /min Effie G unique Body Mass Index (Ratio) 50.08 kg/m2 Aguilar i Eli weight E&M 301 [lb_av] Effie Jeannae er blood pressure, diastolic 89 mm[Hg] Me yennifer Ye blood pressure, systolic 137 mm[Hg] Ellie aram Ye respiratory rate E&M 18 /min Susannah Ye pulse rate 96 /min Susannah Belcher oxygen saturation, oximetry 96 % Susannah Belcher Body Mass Index (Ratio) 50.52 kg/m2 Denise Belcher weight E&M 303.6 [lb_av] Susannah Belcher Body Mass Index (Ratio) 49.75 kg/m2 Aguilar i Eli blood pressure, diastolic 70 mm[Hg] Ke rri Eli blood pressure, systolic 124 mm[Hg] Michelle ri Eli pulse rate 87 /min Effie Jalil ramirez oxygen saturation, oximetry 94 % Effie Eli respiratory rate E&M 16 /min Effie Cesar unique weight E&M 299 [lb_av] Effie Jalil clay Body Mass Index (Ratio) 50.58 kg/m2 Anea shilo [facility] blood pressure, diastolic 81 mm[Hg] An eatris [facility] blood pressure, systolic 132 mm[Hg] Ane atris [facility] pulse rate 93 /min Aneatris [facility] oxygen saturation, oximetry 98 % Aneatris [facility] respiratory rate E&M 17 /min Aneatri s [facility] weight E&M 304 [lb_av] Aneatris Brown Body Mass Index (Ratio) 51.58 kg/m2 Denise shankar Elizabeth blood pressure, diastolic 93 mm[Hg] In yennifer Elizabeth blood pressure, systolic 139 mm[Hg] Ellie augustina Elizabeth pulse rate 80 /min Susannah Elizabeth oxygen saturation, oximetry 98 % Susannah Elizabeth respiratory rate E&M 18 /min Susannah Elizabeth weight E&M 310 [lb_av] Susannah Elizabeth Body Mass Index (Ratio) 48.93 kg/m2 Aguilar ruddy Eli blood pressure, diastolic 86 mm[Hg] Larry baker Eli blood pressure, systolic 137 mm[Hg] Michelle Meeksanton pulse rate 72 /min Effie Jimenes lder oxygen saturation, oximetry 95 % Effie Meekskentrellclay respiratory rate E&M 16 /min Effie Guerrero santowerneranton weight E&M 293 [lb_av] Effie Jimenes lder Body Mass Index (Ratio) 48.80 kg/m2 Merrill ph [place] blood pressure, diastolic 74 mm[Hg] Jeimy seph [place] blood pressure, systolic 120 mm[Hg] Ky eph [place] pulse rate 88 /min Edwin [place] oxygen saturation, oximetry 96 % Edwin [place] respiratory rate E&M 20 /min Edwin [place] weight E&M 292.2 [lb_av] Edwin [place] height E&M 65 [in_i] Edwin [place] ALLERGIES Allergy Name Onset Date Reaction Criticality Status EGGS Low Criticality active PEANUTS Low Criticality active PENICILLIN Low Criticality active RESULTS Date Observation Value Provider Reference Range Interpretation Location platelet count 284 10*3/mm3 Eloy Sanders hematocrit, blood 44.9 % [facility] lipoprotein, beta, serum, point, quantitative, calculated 89 mg/dL Eloy Sanders cholesterol, serum 170 [facility] thyroid stimulating hormone, serum 2.810 u[IU]/mL [facility] alanine aminotransferase (SGPT), serum 28 1/L [facility] aspartate aminotransferase (SGOT), serum 24 1/L [facility] creatinine, serum 0.71 mg/dL Eloy Sanders potassium, serum 4.2 mmol/L Eloy Sanders sodium, serum 140 mmol/L Eloy Sanders HISTORY OF MEDICATION USE Medication Status Instructions Dates Provider Indications Com ments buspirone 15 mg tablet active Marianna Ventimiglia SMOKE CONTROL SUPERVISOR losartan 50 mg tablet active Marianna Ventimiglia SMOKE CONTROL SUPERVISOR quetiapine 100 mg tablet active Marianna Ventimiglia SMOKE CONTROL SUPERVISOR quetiapine 100 mg tablet active Take 1 tablet by mouth once a day Bryan losartan 50 mg tablet completed Take 1 tablet by mouth once a day - 02/12 Marianna miglia SMOKE CONTROL SUPERVISOR meclizine 12.5 mg tablet active as needed carvedilol 12.5 mg tablet active TAKE 1 TABLET BY MOUTH TWICE DAILY 08/30 Kasi Gaines MD metformin 500 mg tablet active TAKE 1 TABLET BY MOUTH TWICE DAILY IF TOLERATED pantoprazole 40 mg tablet,delayed release (DR/EC) active as needed albuterol sulfate 90 mcg/actuation HFA aerosol inhaler active as needed naproxen 500 mg tablet completed Take 1 tablet by mouth twice a day 09/20 - 08/02 Kasi Gaines MD #60, 30 days supply, Prescribed by ANTWAN ANNA, Filled 12/20/2020 OneTouch Ultra Test strip completed Use twice a day 11/17 - 08/02 Kasi Gaines MD #50, 25 days supply, Prescribed by ANTWAN ANNA, Filled 12/31/2020 metformin 500 mg tablet completed Take 1 tablet by mouth twice a day 12/21 - 09/13 Susana Waters #60, 30 days supply, Prescribed by ANTWAN ANNA, Filled 12/21/2020 albuterol sulfate 90 mcg/actuation HFA aerosol inhaler completed Inhale 2 puff by mouth four times a day as needed 12/02 - 09/13 Susana Waters #8.5, 25 days supply, Prescribed by ANTWAN ANNA, Filled 12/30/2020 Eliquis 5 mg tablet active Take 1 table t by mouth twice a day 01/06 Susana Waters #60, 30 days supply, Prescribed by ANTWAN ANNA, Filled 01/06/2021 Poly-Iron 150 mg iron capsule completed Take 1 tablet by mouth once a day 01/12 - 08/02 Kasi Gaines MD #30, 30 days supply, Prescribed by ANTWAN ANNA, Filled 01/12/2021 hydroxyzine pamoate 25 mg capsule completed Take 1 tablet once a day as needed 11/13 - 08/02 Kasi Gaines MD quetiapine 50 mg tablet completed Take 0.5 tablet once a day 11/13 - 08/02 Kasi Gaines MD levothyroxine 200 mcg tablet active Take 1 tablet once a day 11/13 Marianna QUACH meloxicam 15 mg tablet completed Take 1 tablet once a day 11/13 - 08/02 Kasi Gaines MD montelukast 10 mg tablet completed Take 1 tablet once a day 11/13 - 09/13 Brianna Rodriguez meclizine 12.5 mg tablet completed 10/10 - 08/02 Kasi Gaines MD METHOCARBAMOL 750 MG TABS completed 1 tablet twice a day as needed - 08/02 Kasi Gaines MD ZINC TABLET completed 1 tablet once a day - 08/02 Kasi Gaines MD MULTIVITAMINS ORAL CAPSULE completed ONE TAB. DAILY - 11/13 Brianna Rodriguez ABILIFY 20 MG ORAL TABLET completed 1 tab once daily - 11/13 Brianna Rodriguez aspirin 81 mg tablet,delayed release (DR/EC) completed 1 tablet by mouth once a day 11/28 - 08/01 Marianna QUACH hydrochlorothiazide 12.5 mg tablet active once a day Brock Ruiz bupropion HCl 300 mg tablet extended release 24 hr active 1 tablet once a day Julio Gallegos buspirone 10 mg tablet completed 1 tablet twice a day - 02/12 Marianna BUTLERP E400 MIXED CAPSULE completed take one pill a day 08/06 - 02/06 Effie Benitez DICLOFENAC SODIUM GEL completed apply at night to areas that is painful 08/06 - 02/06 Effie Benitez MONTELUKAST SODIUM 10 MG ORAL TABLET completed 1 tab daily - 02/06 Julio Gallegos cetirizine 10 mg tablet completed once a day - 08/02 Kasi Gaines MD OXYBUTYNIN CHLORIDE 5 MG ORAL TABLET completed once daily - 02/06 Julio Gallegos ACYCLOVIR 200 MG CAPS completed once a day - 02/12 Bryan LUGO VITAMIN C 500 MG ORAL TABLET completed once daily - 01/13 Brianna Rodriguez NAPROSYN 500 MG ORAL TABLET completed take one pill twice a day 08/03 - 02/06 Susannah Elizabeth [facility] 0.52 GM ORAL CAPSULE completed as directed 08/03 - 02/06 Julio Gallegos CALCIUM 600-D TABLET completed take one pill a day 08/03 - 02/06 Julio Gallegos Atrovent HFA 17 mcg/actuation HFA aerosol inhaler active as needed 08/06 Kasi Gaines MD CELEXA 10 MG ORAL TABLET completed take one in the am 08/06 - 02/06 Effie Benitez LEVOTHROID 175 MCG TABS completed take one a day 08/06 - 11/13 Brianna Rodriguez DITROPAN XL 5 MG ORAL TABLET EXTENDED RELEASE 24 HOUR completed take one a day 08/06 - 02/06 Susannah Elizabeth Cozaar 100 mg tablet completed Take once a day 08/06 - 02/12 Marianna Bowling SMOKE CONTROL SUPERVISOR VITAMIN D3 2000 UNIT ORAL CAPSULE completed take 2 pills a day 08/06 - 11/13 Brianna Rodriguez METHOCARBAMOL 750 MG ORAL TABLET completed take one pill twice a day 08/06 - 02/06 Effie Benitez RANITIDINE HCL 300 MG ORAL TABLET completed take one pill at bedtime 08/06 - 02/06 Effie Benitez CELEXA 40 MG ORAL TABLET completed take one pill a day 08/03 - 02/06 Allie REED ASPIRIN 325 MG ORAL TABLET completed take one pill a day 08/06 - 02/06 Effie Benitez Lipitor 20 mg tablet active Take 1 every night 08/06 Effie Benitez TRAMADOL HCL 50 MG ORAL TABLET completed take one pill four times a day 08/06 - 02/06 Julio Gallegos ALL DAY ALLERGY 10 MG ORAL TABLET completed take one at bedtime as needed 08/06 - 02/06 Effie Benitez ABILIFY 20 MG ORAL TABLET completed take one pill in the am 08/06 - 02/06 Susannah Elizabeth carvedilol 6.25 mg tablet completed Take 1 tablet by mouth twice a day 09/05 - 08/30 Kasi Gaines MD amlodipine 5 mg tablet completed Take once a day 08/06 - 02/12 Bryan Aivles Combivent Respimat 20-100 mcg/actuation mist completed as needed 08/06 - 02/12 Marianna Bowling SMOKE CONTROL SUPERVISOR SOCIAL HISTORY Date Observation Value Provider personal history of marijuana use no Kasi Gaines MD drug use no Kasi Gaines MD alcohol use no Kasi Gaines MD passive cigarette sm blayne exposure yes Kasi Gaines MD smoking, year quit 2015 Kasi Gaines MD number of years as a smoker 1 a Kasi Gaines MD smoking history, tot al pack/year 20 Kasi Gaines MD smoking history, tot al pack/day 1/ Kasi Gaines MD cigarette use yes Kasi Gaines MD smoking status Former smoker Kasi ovalle MD personal history of marijuana use no Marianna Ventimiglia SMOKE CONTROL SUPERVISOR drug use no Marianna Ventimig manolo SMOKE CONTROL SUPERVISOR alcohol use no Marianna Ventimig manolo SMOKE CONTROL SUPERVISOR passive cigarette sm blayne exposure yes Marianna Ventimiglia SMOKE CONTROL SUPERVISOR smoking, year quit 2015 Marianna Ve ntimiglia SMOKE CONTROL SUPERVISOR number of years as a smoker 1 a Marianna Ventimiglia SMOKE CONTROL SUPERVISOR smoking history, tot al pack/year 20 Marianna Ventimiglia SMOKE CONTROL SUPERVISOR smoking history, tot al pack/day 1/3 Marianna Ventimiglia SMOKE CONTROL SUPERVISOR cigarette use yes Marianna Ventimi glia SMOKE CONTROL SUPERVISOR smoking status Former smoker Marianna Venti miglia SMOKE CONTROL SUPERVISOR personal history of marijuana use no Verah Bonareri BEHAVIORAL HEALTH CARE MANAGER drug use no Verah Bonareri BEHAVIORAL HEALTH CARE MANAGER alcohol use no Verah Bonareri BEHAVIORAL HEALTH CARE MANAGER passive cigarette sm blayne exposure yes Maria Alejandra Bonareri BEHAVIORAL HEALTH CARE MANAGER smoking, year quit 2015 Maria Alejadnra Bon areri BEHAVIORAL HEALTH CARE MANAGER number of years as a smoker 1 a Maria Alejandra Bonareri BEHAVIORAL HEALTH CARE MANAGER smoking history, tot al pack/year 20 Vermicah Bonareri BEHAVIORAL HEALTH CARE MANAGER smoking history, tot al pack/day 1/3 Vermicah Bonareri BEHAVIORAL HEALTH CARE MANAGER cigarette use yes Verah Bonareri BEHAVIORAL HEALTH CARE MANAGER smoking status Former smoker Vermicah Bonare ri BEHAVIORAL HEALTH CARE MANAGER personal history of marijuana use no Marianna Ventimiglia SMOKE CONTROL SUPERVISOR drug use no Marianna Ventimig manolo SMOKE CONTROL SUPERVISOR alcohol use no Marianna Ventimig manolo SMOKE CONTROL SUPERVISOR passive cigarette sm blayne exposure yes Marianna Ventimiglia SMOKE CONTROL SUPERVISOR smoking, year quit 2015 Marianna Ve ntimiglia SMOKE CONTROL SUPERVISOR number of years as a smoker [address] [facility] smoking history, tot al pack/year [address] [facility] smoking history, tot al pack/day 1/[address] [facility] cigarette use yes Marianna Castillo glia [facility] smoking status Former smoker Marianna smythlia [facility] drug use no Kasi Gaines MD alcohol use no Kasi Gaines MD passive cigarette sm blayne exposure yes Kasi Gaines MD smoking, year quit 2015 Kasi Gaines MD number of years as a smoker 1 a Kasi Gaines MD smoking history, tot al pack/year 20 Kasi Gaines MD smoking history, tot al pack/day 1/3 Kasi Gaines MD cigarette use yes Kasi Gaines MD smoking status Former smoker Kasi ovalle MD social history E&M Marital Statu s: Smoking History: P atrenan is a former smoker. Kasi Gaines MD social history reviewed E&M revi ewed - no changes required Kasi Gaines MD caffeine use, averag e drinks per day 0 /d Isabelle Traylor passive cigarette sm blayne exposure yes Isabelle Traylor smoking, year quit 2015 Isabelle Traylor number of years as a smoker 1 a Isabelle Traylor smoking history, tot al pack/year 20 Isabelle Traylor smoking history, tot al pack/day 1/3 Isabelle Traylor cigarette use yes Isabelle steiner smoking status Former smoker Isabelle harmon social history E&M Marital Statu s: Smoking History: P atient is a former smoker. Kasi Gaines MD social history reviewed E&M revi ewed - no changes required Kasi Gaines MD cigarette use yes Tryjossy Maryward s smoking status Former smoker Brock Hu rds smoking status Former smoker Kasi ovalle MD social history reviewed E&M revi ewed - no changes required Kasi Gaines MD caffeine use, averag e drinks per day 0 /d Susana [place] passive cigarette sm blayne exposure yes Susana Evelin smoking, year quit 2015 Susana Bu sby number of years as a smoker 1 a Susana [place] smoking history, tot al pack/year 20 Susana [place] smoking history, tot al pack/day 1/3 Susana [place] cigarette use yes Susana [place] social history E&M Marital Statu s: Smoking History: Anton garcia is a former smoker. [place] social history reviewed E&M revi ewed - no changes required [place] quit smoking, stage relapse Kasi Gaines MD caffeine use, averag e drinks per day 0 /d Brianna Rodriguez passive cigarette sm blayne exposure yes Brianna Rodriguez smoking, year quit 2016 Brianna de anda number of years as a smoker 1 a Brianna Rodriguez smoking history, tot al pack/year 20 Brianna Rodriguez smoking history, tot al pack/day 1/3 Brianna Rodriguez cigarette use yes Brianna zayas smoking status Former smoker Brianna garland social history E&M Marital Statu s: Smoking History: Anton garcia is a former smoker. Kasi Gaines MD social history reviewed E&M revi ewed - no changes required Kasi Gaines MD alcohol use no Brianna España l caffeine use, averag e drinks per day 0 /d Brianna Rodriguez drug use no Brianna España l passive cigarette sm blayne exposure yes Brianna Rodriguez smoking, year quit 2015 Brianna Shea de anda number of years as a smoker 1 a Brianna Rodriguez smoking history, tot al pack/year 20 Brianna Rodriguez smoking history, tot al pack/day 1/3 Brianna Rodriguez cigarette use yes Brianna Salvador marquez smoking status Former smoker Brianna garland number of grandchildren Kasi Gaines MD social history reviewed E&M revi ewed - no changes required Kasi Gaines MD alcohol use no Julio Maxwelle nson caffeine use, averag e drinks per day 0 /d Julio Gallegos drug use no Julio Maxwelle nson passive cigarette sm blayne exposure yes Julio Maxwellenson smoking, year quit 2015 Julio Gallegos number of years as a smoker 1 a Julio Gallegos smoking history, tot al pack/year 20 Julio Gallegos smoking history, tot al pack/day 1/3 Julio Gallegos cigarette use yes Julio Maxwell enson smoking status Former smoker Julio Reyna lissette social history reviewed E&M revi ewed - no changes required Kasi Gaines MD social history E&M Marital Statu s: Smoking History: Anton garcia is a former smoker. Kasi Gaines MD alcohol use no Julio Abraham nson caffeine use, averag e drinks per day 0 /d Julio Maxwellenson drug use no Julio bañueloson passive cigarette sm blayne exposure yes Julio Gallegos smoking, year quit 2015 Julio Gallegos smoking history, tot al pack/day 1/3 Julio Gallegos cigarette use yes Julio durbin smoking status Former smoker Julio Mak social history reviewed E&M revi ewed - no changes required Kasi Gaines MD social history E&M Marital Statu s: Smoking History: P atient is a former smoker. Kasi Gaines MD alcohol use no Effie Jimenes lder caffeine use, averag e drinks per day 0 /d Kasi Gaines MD drug use no Effie Jimenes lder passive cigarette sm blayne exposure yes Effie Benitez smoking, year quit 2015 Effie moore smoking history, tot al pack/day 07/24 Kasi Gaines MD cigarette use yes Effie walton smoking status Former smoker Effie Bronsonze rivas social history E&M Marital Statu s: Smoking History: P atient is a former smoker. Kasi Gaines MD social history reviewed E&M revi ewed - no changes required Kasi Gaines MD alcohol use no Effie Miguel Angelamado lder smoking status Former smoker Effie Michelleshanda rivas social history E&M Marital Statu s: Smoking History: P atient is a former smoker. Kasi Gaines MD social history reviewed E&M revi ewed - no changes required Kasi Gaines MD smoking, year quit 2015 Susannah K rico cigarette use yes Susannah Ye smoking status Former smoker Susannah Belcher social history E&M Marital Statu s: Smoking History: P atient currently smokes sometimes. P atient has been counseled to quit. Kasi Gaines MD smoking/tobacco cess ation, patient education and counseling yes Kasi Gaines MD social history reviewed E&M revi ewed - no changes required Kasi Gaines MD alcohol use no Effie Jalil ramirez number of years as a smoker 1 a Effie Eli smoking history, tot al pack/day 1p every 3 days Effie Benitez cigarette use yes Effie walton smoking status Current some day smoker Larry baker Eli smoking/tobacco cess ation, patient education and counseling yes Kasi Gaines MD social history reviewed E&M revi ewed - no changes required Kasi Gaines MD cigarette use yes Allie Villatoro smoking status Current every da y smoker Allie Villatoro cigarette use yes Susannah Elizabeth caffeine use, averag e drinks per day 2 /d Susannah Elizabeth drug use no Susannah Elizabeth passive cigarette sm blayne exposure yes Susannah Elizabeth smoking/tobacco cess ation, patient education and counseling yes Susannah Elizabeth smoking status Current every da y smoker Susannah Elizabeth social history E&M Marital Status: Marrie d Salvador Aguillon RN social history reviewed E&M reviewed Salvador Aguillon RN smoking history, tot al pack/year 20 Effie Benitez smoking, year quit 2012 Effie moore smoking/tobacco cess ation, patient education and counseling yes Kasi Gaines MD caffeine use, averag e drinks per day 2 /d Edwin Jamison drug use no Edwin Jamison passive cigarette sm blayne exposure yes Edwin Jamison smoking history, tot al pack/year 1/2 pack per day for 22 years Edwin Jamison smoking, year quit 2002 Edwin Hall nacop smoking status former smoker Edwin Levy op MENTAL STATUS Date Observation Value Provider assessment of judgme nt and insight E&M Alert and oriented to time, place and person. Mood and affect are normal. Salvador Aguillon RN assessment of judgme nt and insight E&M Alert and oriented to time, place and person. Mood and affect are normal. Salvador Aguillon RN FAMILY HISTORY Family Member Condition First Degree Blood Relative No Known Fam josé miguel History INSURANCE PROVIDERS Payer name Policy type / Coverage type [place] [employer]ICA[employer] (2) Medicaid [id number] ADVANCE DIRECTIVES Name Date DISCUSSED - NO DECISION MADE TREATMENT PLAN Date Name Performer [id number],S, Colin Obrien i [id number],C,S till undergoing work up for possible surgery, was recommended to undergo bariatric surgery beforehand, unsure if both will be done simultaneously. Once her surgery is scheduled we will have her undergo Echo to risk assess for her surgery. Kasi Gaines MD [id number],C,A dvised limiting salt intake. BP today: 156/88 P rior BP: 130/70 (07/13/2021) Labs Reviewed: C reat: 0.71 (05/07/2012) C hol: 170 (05/07/2012) Kasi Gaines MD [id number],C,Minimal occur rence Kasi Gaines MD [id number],C,S xs are occasionally present, likley related to her hiatal hernia. Her cath was normal in 2012. Her last stress test in 2021 was normal. Kasi Gaines MD [id number],C, She was started on Eliquis and will continue on it long-term. Kasi Gaines MD [id number],S, N o recurrence. Kasi Gaines MD [id number],S, C ontinues on Levothyroxine. Kasi Gaines MD [id number],S, C ontinues to follow with oncology, appears to be in remission. Kasi Gaines MD [id number],S, C ontinues on Atorvastatin. Kasi Gaines MD [id number],S, C ontinues on Amlodipine. BP control is satisfactory. Kasi Gaines MD [id number],S, S he was seen at [facility], [place] on 12/20/2020 for chest discomfort. She had a CTA chest positive for pulmonary emboli in the R lower lobe pulmonary artery. She was started on Eliquis and will continue on it long-term. She has an appointment to see pulmonology. Kasi Gaines MD [id number],S, S he continues to have chest pains which comes and go. These may be related to post-radiation for CA breast. Her cath was normal in 2012. As her last stress test was in 2012, we will arrange for a new stress test to evaluate for obstructive CAD. Kasi Gaines MD [id number],S, C ontinues on Lipitor. Kasi Gaines MD [id number],S, W eight loss advised. She has lost 34 lbs since the last visit with better dietary strategies and more walking. Kasi Gaines MD [id number],C,Continues on Levothyroxine. Kasi Gaines MD [id number],C,Weight loss a dvised. Kasi Gaines MD [id number],C,D ischarged from hospital on Poly-Iron. Kasi Gaines MD [id number],C,Continues on Lipitor. Kasi Gaines MD [id number],C,C ontinues on Amlodipine. BP control is satisfactory. Kasi Gaines MD [id number],C,S he continues on Albuterol, Montelukast, Atrobent. Kasi Gaines MD [id number],C,S he continues to have chest pain which is likely related to post-radiation for CA breast. Her cath was normal in 2012. Kasi Gaines MD [id number],C,C TA chest at hospital showed large hiatus hernia containing nearly the entire stomach. She is scheduled for a colonoscopy and further evaluation of the hernia by GI in [place]. She needs to be evaluated by surgery for hernia repair. Kasi Gaines MD [id number],C,S he was seen at [facility], [place] on 12/20/2020 for chest discomfort. She had a CTA chest positive for pulmonary emboli in the R lower lobe pulmonary artery. She was started on Eliquis and will continue on it long-term. Kasi Gaines MD Cardiology:Indetermi kisha perfusion scan, she is largely asymptomatic with infrequent atypical sxs, will continue medical therapy. Will consider PET stress if sxs worsen. Kasi Gaines MD Cardiology: w eight loss encouraged. Kasi Gaines MD Cardiology: H er updated medication list for this problem includes: Albuterol Sulfate 90 Mcg/actuation Hfa Aerosol Inhaler (Albuterol sulfate) ..... As needed Atrovent Hfa 17 Mcg/actuation Hfa Aerosol Inhaler (Ipratropium bromide) ..... As needed Kasi Gaines MD Cardiology: r emains on eliquis for AC f ollows with pulmonary Kasi Gaines MD Cardiology:surgery postponed Scott Gaines MD Cardiology: H er updated medication list for this problem includes: Lipitor 20 Mg Tablet (Atorvastatin) ..... Take 1 every night Kasi Gaines MD Cardiology:Advised m onitoring BP at home BP today: 156/100 P rior BP: 127/73 (02/13/2024) Labs Reviewed: C reat: 0.71 (05/07/2012) C hol: 170 (05/07/2012) LDL: 89 (05/07/2012) Her updated medication list for this problem includes: Losartan 50 Mg Tablet (Losartan) Carvedilol 12.5 Mg Tablet (Carvedilol) ..... Take 1 tablet by mouth twice daily Hydrochlorothiazide 12.5 Mg Tablet (Hydrochlorothiazide) ..... Once a day Kasi Gaines MD Cardiology:Indetermi kisha perfusion scan, she largely asymptomatic with atypical sxs, will continue medical therapy Kasi Gaines MD Cardiology:Patient c ontinues to have chronic ongoing chest pain at rest and with activity S he is planned to have knee replacement in April he has multiple risk factors for CAD W ill plan nuclear stress test and echo prior W ill need lexiscan stress as uses a cane to ambulate T he following medications were removed from the medication list: Amlodipine 5 Mg Tablet (Amlodipine) ..... Take once a day Her updated medication list for this problem includes: Carvedilol 12.5 Mg Tablet (Carvedilol) ..... Take 1 tablet by mouth twice daily [place] [facility] Cardiology:[facility] loss [facility] Cardiology:remains o n eliquis for AC f ollows with pulmonary Marianna Ventimiglia [facility] Cardiology: H er updated medication list for this problem includes: Lipitor 20 Mg Tablet (Atorvastatin) ..... Take 1 every night [place] [address] [facility] Cardiology:BP 127/73 at goal. continue present medication regimen T he following medications were removed from the medication list: Losartan 50 Mg Tablet (Losartan) ..... Take 1 tablet by mouth once a day Cozaar 100 Mg Tablet (Losartan) ..... Take once a day Amlodipine 5 Mg Tablet (Amlodipine) ..... Take once a day Her updated medication list for this problem includes: Losartan 50 Mg Tablet (Losartan) Carvedilol 12.5 Mg Tablet (Carvedilol) ..... Take 1 tablet by mouth twice daily Hydrochlorothiazide 12.5 Mg Tablet (Hydrochlorothiazide) ..... Once a day Marianna Bowling [facility] Cardiology: A cceptable risk for upcoming gynecological surgical procedure. May hold Eliquis prior to the procedure and resume once cleared by Diesel Locomotive Engineer. Maria Alejandra Jenkins NP Cardiology: S he is scheduled to get surgical procedure at [place] on Saturday11/20/23. OK to hold Eliquis prior to the procedure ans resume once cleared by Diesel Locomotive Engineer. Maria Alejandra Jenkins NP Cardiology: H er updated medication list for this problem includes: Levothyroxine 175 Mcg Tablet (Levothyroxine) ..... Take 1 tablet once a day Maria Alejandra Jenkins NP Cardiology: B ack in 2020 that developed post thyroid surgery a ppears to have been provoked w ould be ok to hold AC if needed. Maria Alejandra Jenkins NP Cardiology: S ymptoms well controlled. Maria Alejandra Jenkins NP Cardiology: H er updated medication list for this problem includes: Lipitor 20 Mg Tablet (Atorvastatin) ..... Take 1 every night Maria Alejandra Jenkins NP Cardiology: B P well controlled. B P today: 126/76 P rior BP: 124/72 (08/01/2023) Maria Alejandra Jenkins NP Cardiology:on replac ement therapy H er updated medication list for this problem includes: Levothyroxine 175 Mcg Tablet (Levothyroxine) ..... Take 1 tablet once a day Marianna Bowling [facility] Cardiology:Back in 2 021 that developed post thyroid surgery a ppears to have been provoked w ould be ok to hold AC if needed. [place] Bowling [facility] Cardiology:blood pre ssure 124/72 and at goal c ontinue present medication regimen T he following medications were removed from the medication list: Aspirin 81 Mg Tablet,delayed Release (dr/ec) (Aspirin) ..... 1 tablet by mouth once a day Her updated medication list for this problem includes: Losartan 50 Mg Tablet (Losartan) ..... Take 1 tablet by mouth once a day Carvedilol 12.5 Mg Tablet (Carvedilol) ..... Take 1 tablet by mouth twice daily Cozaar 100 Mg Tablet (Losartan) ..... Take once a day Hydrochlorothiazide 12.5 Mg Tablet (Hydrochlorothiazide) ..... Once a day Amlodipine 5 Mg Tablet (Amlodipine) ..... Take once a day [place] Valverdeb[address] [facility] Cardiology:She is pl anned to see WATER VALVE MECHANIC later this month will avoid stopping eliquis until their evaluation as her H&H is stable S he will stop aspirin [place] [facility] Cardiology:symptoms are well controlled with increase in BB Her updated medication list for this problem includes: Carvedilol 12.5 Mg Tablet (Carvedilol) ..... Take 1 tablet by mouth twice daily Aspirin 81 Mg Tablet,delayed Release (dr/ec) (Aspirin) ..... 1 tablet by mouth once a day Amlodipine 5 Mg Tablet (Amlodipine) ..... Take once a day [place] Bowling [facility] Cardiology:She was s tarted on Eliquis and will continue on it long-term, no issues Kasi Gaines MD Cardiology:30 day te le showed Sinus Rhythm with 8 paroxysmal SVT events P t c/o presyncopal episodes and feelings of dizziness W e will increase Carvedilol to 12.5mg bid Kasi Gaines MD Cardiology:She was s tarted on Eliquis and will continue on it long-term, no issues or bleeding Kasi Gaines MD Cardiology:C/o frequ ent episodes of pre-syncope, describes it as feeling like she will faint 3 0 day tele showed Sinus Rhythm with 8 paroxysmal SVT events W e will increase Carvedilol to 12.5mg bid Kasi Gaines MD Cardiology:Continues to follow with oncology, appears to be in remission. Kasi Gaines MD Cardiology:No longer plans to obtain bariatric surgery due to losing weight herself. Kasi Gaines MD Cardiology:Blood pre ssure control is satisfactory. BP today: 138/82 P rior BP: 156/88 (08/02/2022) Her updated medication list for this problem includes: Carvedilol 6.25 Mg Tablet (Carvedilol) ..... Take 1 tablet by mouth twice daily Cozaar 100 Mg Tablet (Losartan) ..... Take once a day Hydrochlorothiazide 12.5 Mg Tablet (Hydrochlorothiazide) ..... Once a day Aspirin 81 Mg Tablet,delayed Release (dr/ec) (Aspirin) ..... 1 tablet by mouth once a day Amlodipine 5 Mg Tablet (Amlodipine) ..... Take once a day Kasi Gaines MD Cardiology Colin Hendricks Cardiology:Still und ergoing work up for possible surgery, was recommended to undergo bariatric surgery beforehand, unsure if both will be done simultaneously. Once her surgery is scheduled we will have her undergo Echo to risk assess for her surgery. aKsi Gaines MD Cardiology:Advised l imiting salt intake. BP today: 156/88 P rior BP: 130/70 (07/13/2021) Labs Reviewed: C reat: 0.71 (05/07/2012) C hol: 170 (05/07/2012) Kasi Gaines MD Cardiology:Minimal occurrence Kris Gaines MD Cardiology:Sxs are o ccasionally present, likley related to her hiatal hernia. Her cath was normal in 2012. Her last stress test in 2021 was normal. Kasi Gaines MD Cardiology: She was started on Eliquis and will continue on it long-term. Kasi Gaines MD Cardiology: N o recurrence. Kasi Gaines MD Cardiology: C toñoinrobbin on Levothyroxine. Kasi Gaines MD Cardiology: Shea garcía to follow with oncology, appears to be in remission. Kasi Gaines MD Cardiology: C ontinues on Atorvastatin. Kasi Gaines MD Cardiology: C ontinues on Amlodipine. BP control is satisfactory. Kasi Gaines MD Cardiology: S he was seen at [facility], [place] on 12/20/2020 for chest discomfort. She had a CTA chest positive for pulmonary emboli in the R lower lobe pulmonary artery. She was started on Eliquis and will continue on it long-term. She has an appointment to see pulmonology. Kasi Gaines MD Cardiology: S he continues to have chest pains which comes and go. These may be related to post-radiation for CA breast. Her cath was normal in 2012. As her last stress test was in 2012, we will arrange for a new stress test to evaluate for obstructive CAD. Kasi Gaines MD Cardiology: C toñoinrobbin on Lipitor. Kasi Gaines MD Cardiology: W eight loss advised. She has lost 34 lbs since the last visit with better dietary strategies and more walking. Kasi Gaines MD Cardiology:Continues on Levothyr oxine. Kasi Gaines MD Cardiology:Weight loss advised. Kasi Gaines MD Cardiology:[facility] on Poly-Iron. Kasi Gaines MD Cardiology:Continues on Lipitor. Kasi Gaines MD Cardiology:Continues on Amlodipine. BP control is satisfactory. Kasi Gaines MD Cardiology:She marvin nues on Albuterol, Montelukast, Atrobent. Kasi Gaines MD Cardiology:She marvin nues to have chest pain which is likely related to post-radiation for CA breast. Her cath was normal in 2012. Kasi Gaines MD Cardiology:CTA chest at hospital showed large hiatus hernia containing nearly the entire stomach. She is scheduled for a colonoscopy and further evaluation of the hernia by GI in [place]. She needs to be evaluated by surgery for hernia repair. Kasi Gaines MD Cardiology:She was s een at [facility], [place] on 12/20/2020 for chest discomfort. She had a CTA chest positive for pulmonary emboli in the R lower lobe pulmonary artery. She was started on Eliquis and will continue on it long-term. Kasi Gaines MD Cardiology:Weight loss advised Jarrod Nation Cardiology:On replac ement therapy. Obed Nation Cardiology:Continues on Atorvast atin. Obed Nation Cardiology:Blood pre ssure control is satisfactory. Obededward Nation Cardiology:Denies of any shortne ss of breath. Obed Nation Cardiology:No recurr ence. Obed Nation Cardiology:No recurr ence. Obed Nation Cardiology follow up :On replace ment therapy. Kasi Gaines MD Cardiology follow up :Follows psychology. On multiple medications. Kasi Gaines MD Cardiology follow up :Weight los s advised. Kasi Gaines MD Cardiology follow up :Continues on bronchodilators. Kasi Gaines MD Cardiology follow up :No recurre nce. Kasi Gaines MD Cardiology follow up :On Atorvastatin. Kasi Gaines MD Cardiology follow up :Blood pressure control is satisfactory. Kasi Gaines MD Cardiology:On bronchodilators. Tom Gaines MD Cardiology:Zio monitor showed oc casional PAC's. Kasi Gaines MD Cardiology:On replac ement therapy. Kasi Gaines MD Cardiology:Blood pre ssure control is satisfactory. Continues all medications as before. Kasi Gaines MD Cardiology:No recurrence. Liliane Gaines MD Cardiology:Likely ve rtigo since it has improved. Still occasionally uses Meclizine. aKsi Gaines MD Cardiology:Weight loss advised. Kasi Gaines MD Cardiology:On Atorvastatin. Drake Gaines MD Cardiology:On bronchodilators. M joce Gaines MD Cardiology:Blood pressure contro l is satisfactory. Kasi Gaines MD Cardiology:Some recu rrence of symptoms. Last cath in 2012 showed normal coronaries. Will arrange for her to have a stress test. Kasi Gaines MD Cardiology:Severe en ough for her to go to the ER. It seems that they have recurred and we will give her a Holter. She continues on Coreg. Kasi Gaines MD Cardiology Follow up :Exercise and weight loss advised. Kasi Gaines MD Cardiology Follow up :On Atorvas tatin. Kasi Gaines MD Cardiology Follow up :Blood pressure control is satisfactory. Kasi Gaines MD Cardiology Follow up :Atypical. Likely musculoskeletal. Kasi Gaines MD Cardiology Follow up :No recurre nce. Kasi Gaines MD Cardiology:Symptoms of fluttering in her chest intermittent and recurrent. She was in sinus rhythm, will arrange a telesentry monitor. Kasi Gaines MD Cardiology:The chest pain appears to be atypical, she had a cath in 2012 that showed normal coronary arteries and a stress test in 2014 showing normal perfusion. Her EKG shows normal sinus rhythm and is unremarkable. Will schedule an echo to rule out wall motion abnormality. Kasi Gaines MD Cardiology:Continues on lipitor, will get blood results from your office. Kasi Gaines MD Cardiology:On replacement therap y. Kasi Gaines MD Cardiology:Intermittent use of t ums with relief. Kasi Gaines MD Cardiology:Continues to follow with oncology, appears to be in remission. Kasi Gaines MD Cardiology Kasi Up Cardiology:On replacement therap y. Kasi aGines MD Cardiology:Weight loss advised. Kasi Gaines MD Cardiology:On Lipitor (atorvasta tin). Kasi Gaines MD Cardiology:Blood pressure contro l is satisfactory. Kasi Gaines MD Cardiology:No recurr ence. Effort tolerance remains stable. Kasi Gaines MD Cardiology:Much improved. Liliane Gaines MD Follow up Kasi Up Follow up : H er updated medication list for this problem includes: Amlodipine Besylate 5 Mg Tabs (Amlodipine besylate) ..... Take one a day Coreg 6.25 Mg Tabs (Carvedilol) ..... Take one pill twice a day Cozaar 100 Mg Tabs (Losartan potassium) ..... Take one a day Orders: E KG ([id number]) Kasi Gaines MD Follow up : H er updated medication list for this problem includes: Lipitor 20 Mg Tabs (Atorvastatin calcium) ..... Take one pill at bedtime Kasi Gaines MD follow up Kasi Up follow up: H er updated medication list for this problem includes: Lipitor 20 Mg Tabs (Atorvastatin calcium) ..... Take one pill at bedtime Orders: C omplete Echo ([id number]) Kasi Gaines MD follow up: O rders: C omplete Echo (CPT-70306) Kasi Gaines MD follow up: H er updated medication list for this problem includes: Amlodipine Besylate 5 Mg Tabs (Amlodipine besylate) ..... Take one a day Coreg 6.25 Mg Tabs (Carvedilol) ..... Take one pill twice a day Cozaar 100 Mg Tabs (Losartan potassium) ..... Take one a day Orders: E KG ([id number]) C omplete Echo ([id number]) Kasi Gaines MD follow up: O rders: C omplete Echo (CPT-15762) Kasi Gaines MD Date Name Stress Regadenoson Complete Echo Stress Regadenoson Complete Echo Complete Echo STR - Adenosine Complete Echo ZIO Holter Complete Echo Mobile Cardiac Tele DLCO Order - [id number] FRC Order - [id number] FVC Order - [id number] STR - Adenosine Full PFT Complete Echo Stress Test - Adenos ine Spirometry Renal Artery Duplex HISTORY OF PROCEDURES Procedure Date Procedure Name Provider Procedure Notes S tatus EKG Kasi Gaines MD complet ed EKG Kasi Gaines MD complet ed EKG Kasi Gaines MD complet ed EKG Kasi Gaines MD complet ed EKG Kasi Gaines MD complet ed EKG Kasi Gaines MD complet ed EKG Kasi Gaines MD complet ed EKG Kasi Gaines MD complet ed EKG Kasi Gaines MD complet ed EKG Kasi Gaines MD complet ed Regadenoson, 4 units Kasi Gaines MD completed Cardiolite, 2 units Kasi Gaines MD completed SPECT Images Joey Guadarrama MD complet ed Stress EKG Joey Guadarrama MD completed BATSHEVA Gaines MD completed EKG Kasi Gaines MD complet ed EKG Kasi Gaines MD complet ed SNOMED-CT: 369689696 496344 Current Medications Documented Kasi Gaines MD completed Event Monitor Victoriano Lo-Wes completed EKG Kasi Gaines MD complet ed SNOMED-CT: [id number] [id number] Current Medications Documented Kasi Gaines MD completed SNOMED-CT: 971896739 Smoking Cessation Counseling Kasi Gaines MD completed SNOMED-CT: 74620636 Physical Exam, Performed: Pulse Exam of Foot Kasi Gaines MD completed EKG Kasi Gaines MD complet ed SNOMED-CT: 153990014 244588 Current Medications Documented Kasi Gaines MD completed EKG Kasi Gaines MD complet ed EKG Kasi Gaines MD complet ed EKG Kasi Gaines MD complet ed EKG Kasi Gaines MD complet ed
[2024-11-19 18:34] VITALS: BP 138/92; PULSE 73; RESP 18; O2SAT 100
--- NOTE | 2024-11-19 18:37 | ECG_ITS ---
Test Date: 2024-11-19 18:41:17 Measurements Intervals [place] Rate: 69 P: 32 [place]: 197 QRS: -15 QRSD: 93 T: 45 QT: 358 QTc: 385 Interpretive Statements SINUS RHYTHM POSSIBLE LEFT ATRIAL ENLARGEMENT [-0.1mV P WAVE IN V1/V2] No previous ECG available for comparison Electronically Signed On 11-20-2024 19:05:29 CDT by Ethan Bai
[2024-11-19 18:38] VITALS: O2SAT 100
[2024-11-19 18:49] LABS: Basophils Percent Auto 0.4 % (0.2-1.2); Eosinophils Absolute Auto 0.1 K/mm3 (0-0.3); Hematocrit 39.4 % (37.0-47.0); Hemoglobin 12.6 g/dL (12.0-15.0); Immature Granulocyte Absolute 0.01 K/mm3 (0.00-0.031); Immature Granulocyte Percent A 0.2 % (0-0.5); Lymphocytes Absolute Auto 1.06 K/mm3 (0.9-3.2); Mean Corpuscular Hemoglobin 26.4 pg (26-34); Mean Corpuscular Volume 82.4 fl (80-100); Mean Platelet Volume 9.5 fl (7.4-10.4); Monocytes Absolute Auto 0.5 K/mm3 (0.1-0.6); Monocytes Percent Auto 10.9 % (2.6-8.5); Neutrophils Absolute Auto 2.9 K/mm3 (1.3-6.7); Neutrophils Percent Auto 62.5 % (45.5-73.1); Platelet Count Result 245 k/mm3 (150-375); Red Blood Count 4.78 M/mm3 (4.2-5.4); White Blood Count 4.6 K/mm3 (4.5-10.0)
[2024-11-19 18:59] LABS: INR 1.2
[2024-11-19 19:01] LABS: Partial Thromboplastin Time 28.2 Seconds (22.3-36.8)
--- OUTSIDE RECORDS SUMMARY | 2024-11-19 19:10 | XMS_ITS | CONTINUITY OF CARE DOCUMENT ---
Author Name skylarhellen skylarhellen Address Unknown Organization [facility] Address [address] [place] [address] Phone [phone] Care Team Providers Care Shot Bagger Name Role Phone Kasi Gaines MD Unavailable WILFRIDO PA-C, IFTIKHAR Unavailable [phone] WILFRIDO PA-C, IFTIKHAR Unavailable PROBLEMS Condition Status Date Provider Notes HYPERTENSION-08/03 [...] completed - [place] COPD active Kasi Gaines MD History of Breast CA - S/P L eft Lumpectomy and RADIOTHERAPY 2010 active Kasi Gaines MD Tobacco use, quit active Kasi Gaines MD Palpitations completed - Kasi Gaines MD Dizziness active Kasi Gaines MD Pulmonary embolism active Beata Sherman Hiatus hernia active Beata Sherman Anemia active Beata Sherman Hyperlipidemia active Beata Sherman SVT active Kasi Gaines MD Vaginal bleeding active Marianna Valverdemiglchey MEAT COUNTER CLERK Pre op cardiovascular exam active Maria Alejandra Mccormick MANAGER MILITARY ENCOUNTERS Date Type Provider Location Encounter Diag nosis 04/20 - 04/21 In-person encounter Office Visit Kasi Gaines MD [facility] Office 02/12 - 02/18 In-person encounter Office Visit Kasi Gaines MD [place] [facility] 11/13 - 11/14 In-person encounter Office Visit Kasi Gaines MD [place] [facility] Pre op cardiovascular exam 08/01 - 08/07 In-person encounter Office Visit Kasi Gaines MD [place] [facility] Vaginal bleeding 06/26 - 06/26 In-person encounter Office Visit Kasi Gaines MD [facility] HypercholesterolemiaPalpitationsSVT 08/02 - 08/02 In-person encounter Office Visit aKsi Gaines MD [place] [facility] 07/13 - 07/18 In-person encounter Office Visit Kasi Gaines MD [facility] [facility] 01/12 - 01/12 In-person encounter Office Visit Kasi Gaines MD [facility] Pulmonary embolismHiatus herniaAnemiaHyp erlipidemia 01/13 - 01/13 In-person encounter Office Visit Kasi Gaines MD [place] [facility] SHORTNESS OF BREATH-08/03 JOSE RAFAEL NL 11/13 - 11/14 In-person encounter Office Visit Kasi Gaines MD [place] [facility] 11/14 - 11/15 In-person encounter Office Visit Kasi Gaines MD [facility] 10/10 - 10/21 In-person encounter Office Visit Kasi Gaines MD [facility] Dizziness 11/28 - 11/29 In-person encounter Office Visit Kasi Gaines MD [facility] Tobacco use, quit 03/29 - 03/29 In-person encounter Office Visit Kasi Gaines MD [facility] [facility] 11/29 - 11/29 In-person encounter Office Visit Kasi Gaines MD [facility] 10/27 - 10/28 In-person encounter Office Visit Kasi Gaines MD [facility] Tobacco use, quit 09/02 - 09/07 In-person encounter Office Visit Kasi Gaines MD [facility] History of Breast CA - S/P Left Lumpecto my and RADIOTHERAPY 2010 01/27 - 01/29 In-person encounter Office Visit Kasi Gaines MD [facility] 06/03 - 06/04 In-person encounter Office Visit Kasi Gaines MD [place] [facility] HYPERTENSION-08/03 ECHO MILD LVH:RENAL DU P NEGHypercholesterolemiaCHEST PAIN-05/03 CATH NLCOPD 08/06 - 08/07 In-person encounter Office Visit Kasi Gaines MD [place] [facility] HYPERTENSION-08/03 ECHO MILD LVH:RENAL DU P NEGHypercholesterolemiaGERDHYPOTHYROIDISMDEPRESSION CHEST PAIN-05/03 CATH NLOBESITY VITAL SIGNS Date Observation Value Provider Body Mass Index (Ratio) 43.10 kg/m2 Colin Hendricks blood pressure, diastolic 100 mm[Hg] Li nkLogic blood pressure, systolic 156 mm[Hg] Vivi kLogic blood pressure, diastolic 100 mm[Hg] Ky manolo Redford blood pressure, systolic 156 mm[Hg] Kyl ia Redford oxygen saturation, oximetry 97 % Amarilysa Juan [...] Jayson blood pressure, systolic 138 mm[Hg] Shante [facility] pulse rate 73 /min Bryan respiratory rate [...] Brandonclay son weight E&M 262 [lb_av] Isabelle Brandonclay son height E&M 65 [in_i] Isabelle Kylah [...] blood pressure, diastolic 70 mm[Hg] Kr isty Ridgeway blood pressure, systolic 130 mm[Hg] Kri sttiffani Leonby oxygen saturation, oximetry 96 % Susana Leonby respiratory rate E&M 19 /min Susana Evelin pulse rate 81 /min Susana Ridgeway weight E&M 336 [lb_av] Susana Evelin height [...] Mass Index (Ratio) 50.58 kg/m2 Anea shilo [facility] blood pressure, diastolic 81 mm[Hg] An eatris [facility] blood pressure, systolic 132 mm[Hg] Ane atris [facility] pulse rate 93 /min Aneatris [facility] oxygen saturation, oximetry 98 % Aneatris [facility] respiratory rate E&M 17 /min Aneatri s [facility] weight E&M 304 [lb_av] Aneatris Brown Body Mass Index (Ratio) 51.58 kg/m2 Denise shankar Elizabeth blood pressure, diastolic 93 mm[Hg] Pa yennifer Elizabeth blood pressure, systolic 139 mm[Hg] [...] 10*3/mm3 Eloy Sanders hematocrit, blood 44.9 % [facility] lipoprotein, beta, serum, point, quantitative, calculated 89 mg/dL Eloy Sanders cholesterol, serum 170 mg/dL [facility] thyroid stimulating hormone, serum 2.810 u[IU]/mL [facility] alanine aminotransferase (SGPT), serum 28 1/L [facility] aspartate aminotransferase (SGOT), serum 24 1/L [facility] creatinine, serum 0.71 mg/dL Eloy Sanders potassium, serum 4.2 mmol/L Eloy Sanders sodium, serum 140 mmol/L Eloy Sanders HISTORY OF MEDICATION USE Medication Status Instructions Dates Provider Indications Com ments buspirone 15 mg tablet active Marianna Ventimiglia MEAT COUNTER CLERK losartan 50 mg tablet active Marianna Ventimiglia MEAT COUNTER CLERK quetiapine 100 mg tablet active Marianna Ventimiglia MEAT COUNTER CLERK quetiapine 100 mg tablet active Take 1 tablet by mouth once a day Bryan losartan 50 mg tablet completed Take 1 tablet by mouth once a day - 02/12 Marianna miglia MEAT COUNTER CLERK meclizine 12.5 mg tablet active as needed [...] pill twice a day 08/03 - 02/06 Susannha Elizabeth [facility] 0.52 GM ORAL CAPSULE [...] a day 08/06 - 02/12 Marianna Bowling MEAT COUNTER CLERK VITAMIN D3 2000 UNIT ORAL CAPSULE completed [...] Take once a day 08/06 - 02/12 rByan Aviles Combivent Respimat 20-100 mcg/actuation mist completed as needed 08/06 - 02/12 Marianna Bowling MEAT COUNTER CLERK SOCIAL HISTORY Date Observation Value Provider personal [...] history of marijuana use no Marianna Ventimiglia MEAT COUNTER CLERK drug use no Marianna Ventimig manolo MEAT COUNTER CLERK alcohol use no Marianna Ventimig manolo MEAT COUNTER CLERK passive cigarette sm blayne exposure yes Marianna Ventimiglia MEAT COUNTER CLERK smoking, year quit 2015 Marianna Ve ntimiglia MEAT COUNTER CLERK number of years as a smoker 1 a Marianna Ventimiglia MEAT COUNTER CLERK smoking history, tot al pack/year 20 Marianna Ventimiglia MEAT COUNTER CLERK smoking history, tot al pack/day 1/3 Marianna Ventimiglia MEAT COUNTER CLERK cigarette use yes Marianna Ventimi glia MEAT COUNTER CLERK smoking status Former smoker Marianna Venti miglia MEAT COUNTER CLERK personal history of marijuana use no Verah Bonareri MANAGER MILITARY drug use no Verah Bonareri MANAGER MILITARY alcohol use no Verah Bonareri MANAGER MILITARY passive cigarette sm blayne exposure yes Maria Alejandra Bonareri MANAGER MILITARY smoking, year quit 2015 Maria Alejandra Bon areri MANAGER MILITARY number of years as a smoker 1 a Maria Alejandra Bonareri MANAGER MILITARY smoking history, tot al pack/year 20 Vermicah Bonareri MANAGER MILITARY smoking history, tot al pack/day 1/3 Vermicah Bonareri MANAGER MILITARY cigarette use yes Verah Bonareri MANAGER MILITARY smoking status Former smoker Vermicah Bonare ri MANAGER MILITARY personal history of marijuana use no Marianna Ventimiglia MEAT COUNTER CLERK drug use no Marianna Ventimig manolo MEAT COUNTER CLERK alcohol use no Marianna Ventimig manolo MEAT COUNTER CLERK passive cigarette sm blayne exposure yes Marianna Ventimiglia MEAT COUNTER CLERK smoking, year quit 2015 Marianna Ve ntimiglia MEAT COUNTER CLERK number of years as a smoker [address] [facility] smoking history, tot al pack/year [address] [facility] smoking history, tot al pack/day 1/[address] [facility] cigarette use yes Marianna Castillo glia [facility] smoking status Former smoker Marianna smythlia [facility] drug use no Kasi Gaines MD [...] e drinks per day 0 /d Susana Ridgeway passive cigarette sm blayne exposure yes Susana Evelin smoking, year quit 2015 Susana Bu sby number of years as a smoker 1 a Susana Ridgeway smoking history, tot al pack/year 20 Susana Ridgeway smoking history, tot al pack/day 1/3 Susana Ridgeway cigarette use yes Susana Ridgeway social history E&M Marital Statu s: Smoking [...] pack/day 1/3 Julio Gallegos cigarette use yes Juilo Maxwell enson smoking status Former smoker Julio [...] required Kasi Gaines MD cigarette use yes lAlie Villatoro smoking status Current every da y [...] Payer name Policy type / Coverage type [place] [employer] party ID [employer] MEDICAID (2) Medicaid [id number] ADVANCE DIRECTIVES Name Date DISCUSSED - NO DECISION MADE TREATMENT PLAN Date Name Performer [id number],S, Colin Obrien i [id number],C,S till undergoing work up for possible surgery, was recommended to undergo bariatric surgery beforehand, unsure if both will be done simultaneously. Once her surgery is scheduled we will have her undergo Echo to risk assess for her surgery. Kasi Gaines MD [id number],C,A dvised limiting salt intake. BP today: 156/88 P rior BP: 130/70 (07/13/2021) Labs Reviewed: C reat: 0.71 (05/07/2012) C hol: 170 (05/07/2012) Kasi Gaines MD [id number],C,Minimal occur rence Kasi Gaines MD [id number],C,S xs are occasionally present, likley related to her hiatal hernia. Her cath was normal in 2012. Her last stress test in 2021 was normal. Kasi Gaines MD [id number],C, She was started on Eliquis and will continue on it long-term. Kasi Gaines MD [id number],S, N o recurrence. Kasi Gaines MD [id number],S, C ontinues on Levothyroxine. Kasi Gaines MD [id number],S, C ontinues to follow with oncology, appears to be in remission. Kasi Gaines MD [id number],S, C ontinues on Atorvastatin. Kasi Gaines MD [id number],S, C ontinues on Amlodipine. BP control is satisfactory. Kasi Gaines MD [id number],S, S he was seen at [facility] on 12/20/2020 for chest discomfort. She had a CTA chest positive for pulmonary emboli in the R lower lobe pulmonary artery. She was started on Eliquis and will continue on it long-term. She has an appointment to see pulmonology. Kasi Gaines MD [id number],S, S he continues to have chest pains which comes and go. These may be related to post-radiation for CA breast. Her cath was normal in 2012. As her last stress test was in 2012, we will arrange for a new stress test to evaluate for obstructive CAD. Kasi Gaines MD [id number],S, C ontinues on Lipitor. Kasi Gaines MD [id number],S, W eight loss advised. She has lost 34 lbs since the last visit with better dietary strategies and more walking. Kasi Gaines MD [id number],C,Continues on Levothyroxine. Kasi Gaines MD [id number],C,Weight loss a dvised. Kasi Gaines MD [id number],C,D ischarged from hospital on Poly-Iron. Kasi Gaines MD [id number],C,Continues on Lipitor. Kasi Gaines MD [id number],C,C ontinues on Amlodipine. BP control is satisfactory. Kasi Gaines MD [id number],C,S he continues on Albuterol, Montelukast, Atrobent. Kasi Gaines MD [id number],C,S he continues to have chest pain which is likely related to post-radiation for CA breast. Her cath was normal in 2012. Kasi Gaines MD [id number],C,C TA chest at hospital showed large hiatus hernia containing nearly the entire stomach. She is scheduled for a colonoscopy and further evaluation of the hernia by GI in [place]. She needs to be evaluated by surgery for hernia repair. Kasi Gaines MD [id number],C,S he was seen at [facility] on 12/20/2020 for chest discomfort. She had [...] Take 1 tablet by mouth twice daily [place] Nicollemiglia [facility] Cardiology:weight loss encourage d. [facility] Cardiology:remains o n eliquis for AC f ollows with pulmonary Marianna Ventimiglia [facility] Cardiology: H er updated medication list for this problem includes: Lipitor 20 Mg Tablet (Atorvastatin) ..... Take 1 every night [place] [address] [facility] Cardiology:BP 127/73 at goal. continue present [...] Once a day Marianna Bowling [facility] Cardiology: A cceptable risk for upcoming gynecological surgical procedure. May hold Eliquis prior to the procedure and resume once cleared by Global Sales Executive. Maria Alejandra Jenkins NP Cardiology: S he is scheduled to get surgical procedure at [facility] on Saturday11/20/23. OK to hold Eliquis prior to the procedure ans resume once cleared by Global Sales Executive. Maria Alejandra Jenkins NP Cardiology: H er [...] once a day Marianna Bowling [facility] Cardiology:Back in 2 021 that developed post thyroid surgery a ppears to have been provoked w ould be ok to hold AC if needed. Mariannakale Bowling [facility] Cardiology:blood pre ssure 124/72 and at [...] once a day Mariannakale Valverdebob [facility] Cardiology:She is pl anned to see GRANITE WORKER later this month will avoid stopping eliquis until their evaluation as her H&H is stable S he will stop aspirin [place] Dash [facility] Cardiology:symptoms are well controlled with increase in BB Her updated medication list for this problem includes: Carvedilol 12.5 Mg Tablet (Carvedilol) ..... Take 1 tablet by mouth twice daily Aspirin 81 Mg Tablet,delayed Release (dr/ec) (Aspirin) ..... 1 tablet by mouth once a day Amlodipine 5 Mg Tablet (Amlodipine) ..... Take once a day Mariannakale Bowling [facility] Cardiology:She was s tarted on Eliquis [...] assess for her surgery. Kasi Gaines MD Cardiology:Advised l imiting salt intake. [...] MD Cardiology: S he was seen at [facility] on 12/20/2020 for chest discomfort. She had [...] loss advised. Kasi Gaines MD Cardiology:Discharged from [facility] on Poly-Iron. Kasi Gaines MD Cardiology:Continues on [...] evaluation of the hernia by GI in [place]. She needs to be evaluated by surgery for hernia repair. Kasi Gaines MD Cardiology:She was s een at [facility] on 12/20/2020 for chest discomfort. She had [...] it has improved. Still occasionally uses Meclizine. Kasi Gaines MD Cardiology:Weight loss advised. Kasi [...] Kasi Up Cardiology:On replacement therap y. Kasi Gaines MD Cardiology:Weight loss advised. Kasi [...] Take one a day Orders: E KG (CPT-85983) Kasi Gaines MD Follow up : H er updated medication list for this problem includes: Lipitor 20 Mg Tabs (Atorvastatin calcium) ..... Take one pill at bedtime Kasi Gaines MD follow up Kasi Up follow up: H er updated medication list for this problem includes: Lipitor 20 Mg Tabs (Atorvastatin calcium) ..... Take one pill at bedtime Orders: C omplete Echo (CPT-91610) Kasi Gaines MD follow up: O rders: C omplete Echo (CPT-13806) Kasi Gaines MD follow up: H er updated medication list for this problem includes: Amlodipine Besylate 5 Mg Tabs (Amlodipine besylate) ..... Take one a day Coreg 6.25 Mg Tabs (Carvedilol) ..... Take one pill twice a day Cozaar 100 Mg Tabs (Losartan potassium) ..... Take one a day Orders: E KG (CPT-95789) C omplete Echo (CPT-83397) Kasi Gaines MD follow up: O rders: C omplete Echo (CPT-52216) Kasi Gaines MD Date Name Stress Regadenoson Complete Echo Stress Regadenoson Complete Echo Complete Echo STR - Adenosine Complete Echo ZIO Holter Complete Echo Mobile Cardiac Tele DLCO Order - 32705 FRC Order - 74205 FVC Order - 26909 STR - Adenosine Full PFT Complete Echo [...] EKG Kasi Gaines MD complet ed SNOMED-CT: 797131864 710156 Current Medications Documented Kasi Gaines MD completed Event Monitor Victoriano Lo-Wes completed EKG Kasi Gaines MD complet ed SNOMED-CT: 424446729 931776 Current Medications Documented Kasi Gaines MD completed SNOMED-CT: 351987337 Smoking Cessation Counseling Kasi Gaines MD completed SNOMED-CT: 46804561 Physical Exam, Performed: Pulse Exam of Foot Kasi Gaines MD completed EKG Kasi Gaines MD complet ed SNOMED-CT: 266339361 693889 Current Medications Documented Kasi Gaines MD completed EKG Kasi Gaines MD complet ed EKG Kasi Gaines MD complet ed EKG Kasi Gaines MD complet ed EKG Kasi Gaines MD complet ed
--- OUTSIDE RECORDS SUMMARY | 2024-11-19 19:10 | XMS_ITS | Clinical Summary ---
Author Organization [facility] Address [address] [place] [address] Phone Care Team Providers Care Winch Stripper Name Role Phone Hung Casillas MD Unavailable [...] this topic Medical Devices Implanted Type Area Engine Dynamometer Tester Device Identifier Shelf Expiration Date Model / Serial / Lot Agent Hemostatic Surgiflo Evithrom Gelatin Topical Kit Ndl Free Vial Adpr Multibend Flextip 8mlstrl - [id number] Implanted:Qty: 1 on 05/07/2018 by Krishna Hernandez MD at [facility] IMPLANT Left: Knee [employer] 09/19/2019 2994 / [id number] / [id number] Knee Femoral Component Beaded With Pa Cementless Cruciate Retaining Triathlon Left Size 5 - [id number] Implanted:Qty: 1 on 05/07/2018 by Krishna Hernandez MD at [facility] IMPLANT Left: Knee [employer] 06/27/2022 [id number]-[id number] / [id number] / [id number] Component Patellar 40mm Bead Triathlon Fabienne-Apatite Knee - [id number] Implanted:Qty: 1 on 05/07/2018 by Krishna Hernandez MD at [facility] IMPLANT Left: Knee [employer] 04/20/2019 [id number] / [id number] / [id number] Triathlon Tritanium Tibial Compnent Implanted:Qty: 1 on 05/07/2018 by Krishna Hernandez MD at [facility] Left: Knee ARLETTE / ORTHOPAEDICS 11/18/2022 [id number] / [id number] / [id number] Triathlon Tibial Bearing Insert Implanted:Qty: 1 on 05/07/2018 by Krishna Hernandez MD at [facility] Left: Knee ARLETTE / ORTHOPAEDICS 10/20/2019 [id number] / [id number] / [id number] Procedures Procedure Name Priority Date/Time Associated Diagnosis [...] copy. Current study was also evaluated with [employer] version 7.2. CLINICAL: Routine screening. Patient has no complaints. Previous history of left breast cancer and colon cancer. Family history of breast cancer unknown. COMPARISONS: Comparison is made to exams dated: 10/02/2017 [facility] [place], 04/20/2016, and 01/12/2015 [facility]. BREAST TISSUE:The tissue of both breasts is [...] exam. Electronically signed by: Macrina zayas/nuria:01/27/2019 16:17:13 Talk Show Host: Aretha ZHONG)(M), [facility] letter sent: Normal Exam Reading location: [facility] BI-RADS: 1 Negative Procedure Note Macrina Scott [...] Comparison is made to exams dated: 10/02/2017 [facility] [place], 04/20/2016, and 01/12/2015 [facility]. BREAST TISSUE:The tissue of both breasts is [...] exam. Electronically signed by: Macrina zayas/nuria:01/27/2019 16:17:13 Talk Show Host: Aretha ZHONG)(Tom), [facility] letter sent: Normal Exam Reading location: [facility] BI-RADS: 1 Negative us Radha Pinto MD IMG MAMMO ORDERABLES Final R esult from Last 3 Months or Most Recently Relevant to Health Maintenance Insurance MEDICAID [employer] Advance Directives Documents on File Type Date Recorded Patient Information Technology Audit Manager Expl anation Power of Loading Rack Supervisor for Health Care 05/12/2018 7:52 AM POA-HC * Full Code (Latest Code Status on File) Date Activated Date Inactivated Comments 06/13/2018 11:11 PM 01/08/2019 6:36 AM Care Teams Winch Stripper Relationship Specialty Start Date End Date Provider, None [place] PCP - General 07/30/19 Hung Casillas MD Obstetrics & Gynecology 05/29/18
--- OUTSIDE RECORDS SUMMARY | 2024-11-19 19:10 | XMS_ITS | Clinical Summary ---
Author Organization [facility] Address [facility] [place] [address] Care Team Providers Care Supervisor Bottle Machines Name Role Phone Leandra Helms PA-C Primary [...] USE TO TEST TWICE DAILY 11/18/19 Active Somaxon PharmaceuticalsTOUCH ULTRA test strip 2 (two) times daily. [...] the left lateral decubitus position, the Olympus [id number] endoscope was used to easily intubate the [...] the left lateral decubitus position, the Olympus [id number] colonoscope was introduced into the rectum and [...] your patient. She will follow-up with [facility] and Dr. Sheela Sal. Jay Mora M.D. [facility] Helms; Dr. Sheela Sal. Jay Mora MD GI PROCEDURE ORDERABLES Fin al Result from Last 3 Months or Most Recently Relevant to Health Maintenance Insurance [facility] Care Teams Supervisor Bottle Machines Relationship Specialty Start Date End Date Leandra Helms PA-C [address] [place] [id number] PCP - General NURSE PRACTITIONER 10/10/21
--- OUTSIDE RECORDS SUMMARY | 2024-11-19 19:10 | XMS_ITS | Encounter Summary ---
Author Organization [facility] Address [address] [place] [address] Care Team Providers Care Cofounder Name Role Phone Leandra Helms PA-C Primary Care Provider Encounter Details Date Type Department Care Team (Late st Contact Info) Description 04/04/2022 Telephone [facility] Pulmonary, Critical Care and Sleep Medicine [address] [place] [phone] Kathy Lopez MD [address] [place] [address] Social History Tobacco Use Types Packs/Day Years Used Date Smoking Tobacco: Former Cigarettes Smokeless Tobacco: Never PHQ-2 Answer Date Recorded PHQ2 TOTAL SCORE 0 07/19/2021 Comments Unknown Sex and Gender Information Value Date Recorded Sex Assigned at Not on file Legal Sex Female 4:23 AM TUNGSTEN REFINER Gender Identity Not on file Sexual Orientation [...] done. She's reschedled. Patient Call Back number: [phone] documented in this encounter Plan of Treatment Upcoming Encounters Date Type Department Care Team (Late st Contact Info) Description 05/19/2025 9:30 AM CDT Office Visit [facility] - Pulmonology [address] [facility] [place] [address] Jo Carrillo, DO [facility] DIV [facility] [place] [address] documented as of this encounter Visit Diagnoses Not on filedocumented in this encounter Care Teams Cofounder Relationship Specialty Start Date End Date Leandra Helms PA-C [address] [place] [phone] PCP - General 05/31/21 documented as of this encounter
--- OUTSIDE RECORDS SUMMARY | 2024-11-19 19:10 | XMS_ITS | Clinical Summary ---
Author Organization [facility] [employer] [facility] [employer] [facility] Address [address] [place] [address] Phone Care Team Providers Care Cabinet Worker Name Role Phone Leandra Helms PA-C Primary [...] Description 04/20/2025 10:00 AM CDT Office Visit [facility], [facility] [address] [facility] [place] [phone] Apollo Gómez MD [address] [facility] [address] [place] [address] Health Maintenance Due Date Last [...] Most Recently Relevant to Health Maintenance Insurance [place], [place] [id number] [place] [address] Care Teams Cabinet Worker Relationship Specialty Start Date End Date Leandra Helms PA-C [facility] [place] [phone] PCP - General Physician Duct Layer 06/27/21
--- OUTSIDE RECORDS SUMMARY | 2024-11-19 19:10 | XMS_ITS | Clinical Summary ---
Author Organization [facility] Address [address] [address] Phone Care Team Providers Care Wool And Pelt Grader Name Role Phone Leandra Helms Primary Care Provider [phone] Social History Tobacco Use Types Packs/Day Years [...] Influenza Vaccine (Season Ended) 2025 Care Teams Wool And Pelt Grader Relationship Specialty Start Date End Date Leandra Helms PA [address] [place] [phone] PCP - General Family Medicine 06/01/21
--- OUTSIDE RECORDS SUMMARY | 2024-11-19 19:10 | XMS_ITS | Referral Summary ---
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 [id number] [facility]. [place] [address] * Hemoglobin A1c (01/28/2023 11:10 [...] and children were not included. (Diabetes Care [id number], 2008). The eAG is not equivalent to a fasting glucose. Blood 01/28/2023 11:1 0 AM CDT 01/28/2023 11:24 AM CDT us Mojgan Morrison NP LAB BLOOD ORDERABLES Final Result [facility] [id number] [facility]. Department [place] [address] * Lipid panel (01/28/2023 11:10 AM CDT) [...] ORDERABLES Edited Result - Final PIERRE CABRERA [address] Department [place] [address] * COLONOSCOPY REPORT (08/27/2012) Anatomical Region Laterality Modality Other Narrative 08/27/2012 Ordered by an unspecified provider. us Historical Provider GI PROCEDURE ORDERABLES F inal Result from Last 3 Months or Most Recently Relevant to Health [place] [address] [place] [address] [facility] [place] [address] [place] [address] [facility] [place] [address] [facility] Advance Directives For more information, please contact: [phone] * Full Code (Latest Code Status on File) Date Activated Date Inactivated Comments 11/19/2023 5:04 PM 11/20/2023 3:21 PM Care Teams Weld Technician Relationship Specialty Start Date End Date Leandra Helms PA PCP - General Physician Pc Tech 03/16/22
--- OUTSIDE RECORDS SUMMARY | 2024-11-19 19:10 | XMS_ITS | Encounter Summary ---
Author Organization [facility] Address [address] [facility] [place] [address] Phone Care Team Providers Care Gathering Machine Setter Name Role Phone Hung Casillas MD Unavailable Provider, None Primary Care Provider Unavailabl e Reason for Visit * Reason Onset Date Comments Medication Refill 09/01/2020 Encounter Details Date Type Department Care Team (Late st Contact Info) Description 09/01/2020 Refill [facility] [place] [address] [place], [place] [id number] Radha Pinto MD [address] [place] [address] Medication Refill Social History Tobacco Use Types [...] Shanda Shukla RN - 09/02/2020 11:00 AM MCAT TUTOR Refused as no longer under a provider care in this clinic. TUTOR documented in this encounter Plan of Treatment Not on file documented as of this encounter Visit Diagnoses Not on filedocumented in this encounter Additional Health Concerns Assessment Noted Time PHQ-9 Depression Total Score: 0 06/20/20 17 2:00 PM MCAT TUTOR documented as of this encounter Care Teams Gathering Machine Setter Relationship Specialty Start Date End Date Provider, None [place] PCP - General 07/30/19 Hung Casillas MD Obstetrics & Gynecology 05/29/18 documented as of this encounter
--- OUTSIDE RECORDS SUMMARY | 2024-11-19 19:10 | XMS_ITS | Encounter Summary ---
Author Organization [facility] [employer] [facility] Address [address] [address] Phone Care Team Providers Care Airline Ticket Agent Name Role Phone Leandra Helms PA-C Primary Care Provider [phone] Reason for Visit * Reason Onset Date Comments Med Refill 04/14/2024 Encounter Details Date Type Department Care Team (Late st Contact Info) Description 04/14/2024 Refill [facility] [address] [phone] Kristal Girard CMA [address] [facility] 1 [place] [address] Social History Tobacco Use Types [...] Description 04/20/2025 10:00 AM CDT Office Visit [place] [employer] [facility] [address] [facility] 15 [place] [address] Apollo Gómez MD [address] [facility] 1 [place] [address] documented as of this encounter Visit Diagnoses Not on filedocumented in this encounter Care Teams Airline Ticket Agent Relationship Specialty Start Date End Date Leandra Helms PA-C [address] [place] [address] PCP - General Physician Veneer Drier 06/27/21 documented as of this encounter
--- OUTSIDE RECORDS SUMMARY | 2024-11-19 19:10 | XMS_ITS | Clinical Summary ---
Author Organization [facility] [employer] Address [address] [place] [address] Care Team Providers Care Bus Dispatcher Interstate Name Role Phone Leandra Helms PA-C Primary Care Provider Source Comments [facility],non-owned Affiliates and Associated Physician Practices is amultiple site organization consisting of ambulatory clinics and hospital sitesin [place], [place], [place] and [place]. This disclosure is being madepursuant to the Care Everywhere program and may not contain all information available regarding this patient. Last updated 18.[facility] [employer] Allergies Active Allergy Reactions Criticality Noted Date [...] Diabetes mellitus 08/28/2021 Gastroesophageal reflux disease 08/28/2021 group home current use of anticoagulant therapy 0 08/02/2021 Anemia 01/12/2021 Hiatus hernia with obstruction 01/12/2021 Status post thyroidectomy 12/21/2020 Hx of transient ischemic attack (TIA) 11/27/2018 History of left breast cancer 08/29/2017 Bipolar I disorder 06/20/2017 Generalized anxiety disorder 06/20/2017 Essential (primary) hypertension 06/20/2017 Obesity 06/20/2017 Asthma 08/02/2016 Acquired hypothyroidism 08/02/2016 Hyperlipidemia, unspecified 08/06/2012 Encounters Date Type Department Care Team Description 11/12/2024 Orders Only [facility] - Pulmonology [address] [place] [phone] Shabana Gonzalez RN 11/11/2024 8:30 AM CDT Office Visit [facility] - Pulmonology [address] [place] [phone] Jo Carrillo, History of pulmonary embolism (Primary [...] on file 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 Gender Identity Not on file Sexual [...] Visit [facility] - Pulmonology [address] [facility], [place] [address] Jo Carrillo, [address] [place] [address] OF [facility] [place] [address] Health Maintenance Due Date Last Done Comments [...] patient's age to complete [place] [address] [facility] Care Teams Bus Dispatcher Interstate Relationship Specialty Start Date End Date Leandra Helms PA-C [address] [place] [phone] PCP - General 05/31/21
--- OUTSIDE RECORDS SUMMARY | 2024-11-19 19:10 | XMS_ITS | Encounter Summary ---
Author Organization [facility] Address [address] [facility] [place] [address] Care Team Providers Care Waterworks Chief Engineer Name Role Phone Leandra Helms PA-C Primary Care Provider Encounter Details Date Type Department Care Team (Late st Contact Info) Description 02/05/2024 Telephone [facility] - Centralized Scheduling [address] [place] [address] Kathy Lopez MD [address] [address] Social History Tobacco Use Types Packs/Day Years Used Date Smoking Tobacco: Former Cigarettes Smokeless Tobacco: Never PHQ-2 Answer Date Recorded PHQ2 TOTAL SCORE 0 07/19/2021 Comments No Sex and Gender Information Value Date Recorded Sex Assigned at Not on file 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 [place] [place] [phone] Jo Carrillo DO [address] [place] [address] DIV OF [employer] [place] [address] documented as of this encounter Visit Diagnoses Not on filedocumented in this encounter Care Teams Waterworks Chief Engineer Relationship Specialty Start Date End Date Leandra Helms PA-C [address] [place] [phone] PCP - General 05/31/21 documented as of this encounter
--- OUTSIDE RECORDS SUMMARY | 2024-11-19 19:10 | XMS_ITS | Encounter Summary ---
Author Organization [facility] Address [address] [facility] [place] [address] Care Team Providers Care Data Operations Manager Name Role Phone Leandra Helms PA-C Primary Care Provider Encounter Details Date Type Department Care Team (Late Contact Info) Description 11/12/2024 Orders Only [facility] - Pulmonology [address] [place] [phone] Shabana Gonzalez, RN Social History Tobacco Use Types Packs/Day Years Used Date Smoking Tobacco: Former Cigarettes Smokeless Tobacco: Never PHQ-2 Answer Date Recorded PHQ2 TOTAL SCORE 0 07/19/2021 Comments No Sex and Gender Information Value Date Recorded Sex Assigned at Not on file 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 Gender Identity Not on file Sexual Orientation Not on file documented as of this encounter Plan of Treatment Upcoming Encounters Date Type Department Care Team (Late Contact Info) Description 05/19/2025 9:30 AM CDT Office Visit [facility] - Pulmonology [address] [place] [phone] Jo Carrillo, DO [address] [place] [address] OF [facility] [place] [address] documented as of this encounter Visit Diagnoses Not on filedocumented in this encounter Care Teams Data Operations Manager Relationship Specialty Start Date End Date Leandra Helms PA-C [address] [place] [phone] PCP - General 05/31/21 documented as of this encounter
--- OUTSIDE RECORDS SUMMARY | 2024-11-19 19:10 | XMS_ITS | Clinical Summary ---
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 Department [place] [address] * Hemoglobin A1c (01/28/2023 11:10 [...] and children were not included. (Diabetes Care 31:4457-4285, 2008). The eAG is not equivalent to a fasting glucose. Blood 01/28/2023 11:1 0 AM CDT 01/28/2023 11:24 AM CDT us Mojgan Morrison NP LAB BLOOD ORDERABLES Final Result [facility] [address] [facility]. Department [place] [address] * Lipid panel (01/28/2023 11:10 AM CDT) [...] ORDERABLES Edited Result - Final [facility] [address] [facility]. Department [place] [address] * COLONOSCOPY REPORT (08/27/2012) Anatomical Region Laterality Modality Other Narrative 08/27/2012 Ordered by an unspecified provider. Historical Provider GI PROCEDURE ORDERABLES F inal Result from Last 3 Months or Most Recently Relevant to Health Maintenance Insurance [facility] Advance Directives For more information, please contact: [phone] * Full Code (Latest Code Status on File) Date Activated Date Inactivated Comments 11/19/2023 5:04 PM 11/20/2023 3:21 PM Care Teams Account Management Assistant Relationship Specialty Start Date End Date Leandra Helms PA PCP - General Physician Laboratory Technologist 03/16/22
--- OUTSIDE RECORDS SUMMARY | 2024-11-19 19:10 | XMS_ITS | Encounter Summary ---
Author Organization [facility] Address [address] [facility] [place] [address] Care Team Providers Care Mobile Web Application Developer Name Role Phone Leandra Helms PA-C Primary Care Provider Encounter Details Date Type Department Care Team (Late st Contact Info) Description 06/15/2024 Telephone [facility] - Pulmonology [address] [facility], [facility] [place] [phone] Kathy Lopez MD [address] [place] [address] Social History Tobacco Use Types Packs/Day Years Used Date Smoking Tobacco: Former Cigarettes Smokeless Tobacco: Never PHQ-2 Answer Date Recorded PHQ2 TOTAL SCORE 0 07/19/2021 Comments No Sex and Gender Information Value Date Recorded Sex Assigned at Not on file Legal Sex Female 4:23 AM NECK BAND SETTER Gender Identity Not on file Sexual Orientation [...] the office. Patient call back number is [phone] BAND SETTER documented in this encounter Plan of Treatment Upcoming Encounters Date Type Department Care Team (Late st Contact Info) Description 05/19/2025 9:30 AM CDT Office Visit [facility] - Pulmonology [address] [facility], [place] [address] Jo Carrillo, DO [facility]5 [facility] 2L DIV OF [facility] [place] [address] documented as of this encounter Visit Diagnoses Not on filedocumented in this encounter Care Teams Mobile Web Application Developer Relationship Specialty Start Date End Date Leandra Helms PA-C [address] [place] [phone] PCP - General 05/31/21 documented as of this encounter
--- OUTSIDE RECORDS SUMMARY | 2024-11-19 19:10 | XMS_ITS ---
Author Organization [facility] [address] Address [address] [facility] [place] [address] Phone Care Team Providers Care Coremaker Pipe Name Role Phone Leandra Helms Primary Care [...]
[2024-11-19 19:15] LABS: Alanine Aminotransferase 18 U/L (6-35); Albumin Level 4.2 g/dL (3.5-5.1); Alkaline Phosphatase 183 U/L (38-126); Anion Gap 10 mmol/L (4-12); Aspartate Amino Transferase 29 U/L (14-36); Bilirubin,Total 0.4 mg/dL (0.2-1.3); Blood Urea Nitrogen 14 mg/dL (7-17); Calcium 8.9 mg/dL (8.4-10.2); Carbon Dioxide 24 mmol/L (22-30); Chloride 105 mmol/L (98-107); Estimated CRCL calculation 63 ml/min; Estimated Glomerular Filt Rate 60; Glucose 80 mg/dL (65-110); Lipase 38 U/L (23-300); Potassium 3.7 mmol/L (3.4-5.0); Sodium 139 mmol/L (137-145)
[2024-11-19 19:27] LABS: Troponin I < 0.012 ng/mL (0.000-0.034)
--- NOTE | 2024-11-19 20:39 | ED_ITS ---
HPI - General Adult General Chief complaint: Upper Respiratory Infection Stated complaint: Spitting up blood clots x 3 days-on Eliquis Time Seen by Provider: 11/19/24 18:49 History of Present Illness HPI narrative: 69-year-old female presents to the emergency department for evaluation for hemoptysis that is worsened in the morning. Patient states that she wakes up she does have some blood that she coughs and spits up but this resolves over the course of the morning. Patient denies any associated shortness of breath. Patient is on Eliquis Related Data Home Medications ?Medication ?Instructions ?Recorded ?Confirmed ?Last Taken ?Type albuterol sulfate 90 mcg/actuation inhalation 11/16/24 11/16/24 Unknown History aerosol inhaler apixaban 5 mg tablet (Eliquis) 5 mg PO BID 11/16/24 11/16/24 Unknown History atorvastatin 20 mg tablet 20 mg PO DAILY 11/16/24 11/16/24 Unknown History bupropion HCl 150 mg 24 hr tablet, 150 mg PO DAILY 11/16/24 11/16/24 Unknown History extended release bupropion HCl 300 mg 24 hr tablet, 300 mg PO .twic 11/16/24 11/16/24 Unknown History extended release carvedilol 12.5 mg tablet 12.5 mg PO BID 11/16/24 11/16/24 Unknown History hydrochlorothiazide 12.5 mg capsule 12.5 mg PO DAILY 11/16/24 11/16/24 Unknown History levothyroxine 175 mcg tablet 175 mcg PO DAILY 11/16/24 11/16/24 Unknown History losartan 25 mg tablet 25 mg PO DAILY 11/16/24 11/16/24 Unknown History losartan 50 mg tablet 50 mg PO ONCE 11/16/24 11/16/24 Unknown History metformin 500 mg tablet 500 mg PO BID 11/16/24 11/16/24 Unknown History Allergies Allergy/AdvReac Type Severity Reaction Status Date / Time peanut Allergy Intermediate Rash Verified 11/19/24 17:29 Penicillins Allergy Hives Verified 11/19/24 17:29 eggs Allergy Intermediate Rash Uncoded 11/19/24 17:29 Review of Systems 2 Review of Systems: All systems reviewed & are unremarkable except as noted in HPI and below PMFSH Social History Social History (Updated 09/21/24 @ 11:19 by Lu Davies) Social History: Caffeine- decaf coffee Smoking status: Never smoker Alcohol intake: never Substance use: never Do You Feel Safe in your Home?: Yes Lack of Transportation: YES Lack of Food: Never True Current Housing: I Have Housing Concerned About Future Housing: No Difficulty Paying Gas/Electric Bills: No Difficulty Paying for Meds: No Currently Unemployed: No Education: Don't Know Difficulty w/ Childcare or Family Care: No Exam 2 Narrative: APPEARANCE: Well appearing, no pain, no distress, well-nourished. HEAD: normocephalic, atraumatic. EYES: PERRLA/EOMI, conjunctivae clear. NOSE: Normal no drainage EARS:TMS clear with good light reflex. THROAT: Pharynx clear, no exudate. NECK: Supple. No adenopathy, no masses. RESPIRATORY: Airway patent, respirations nonlabored. Clear to auscultation bilaterally, no rales, rhonchi, wheezing. CARDIOVASCULAR: Regular rate and rhythm without murmurs rubs or gallops. ABDOMINAL: Soft, nontender, nondistended, normal bowel sounds MUSCULOSKELETAL: Moves all extremities. Strength/ROM intact, No edema, No calf tenderness. NEURO: Alert. Cranial nerves II through XII intact. Good gait. Good coordination SKIN: Warm, dry. Normal Color Course Vital Signs Vital signs: Vital Signs Temperature 98.1 F 11/19/24 17:29 Pulse Rate 80 11/19/24 17:29 Respiratory Rate 17 11/19/24 17:29 Blood Pressure 158/86 H 11/19/24 17:29 Pulse Oximetry 98 11/19/24 17:29 Oxygen Delivery Room Air 11/19/24 17:29 Temperature 98.1 F 11/19/24 17:29 Pulse Rate 80 11/19/24 21:22 Respiratory Rate 15 11/19/24 21:22 Blood Pressure 140/90 11/19/24 21:22 Pulse Oximetry 100 11/19/24 21:22 Oxygen Delivery Room Air 11/19/24 18:38 Medical Decision Making [facility] Narrative Medical decision making narrative: 69-year-old female presents emergency department for evaluation for proptosis that has been occurring in the morning. Patient has had no hemoptysis in the emergency department in has no shortness of breath. Patient is currently afebrile with no leukocytosis and hemoglobin of 12.6, INR is 1.2. Patient has no acute abnormalities on the CMP CTA was ordered and does show a hiatal hernia but no evidence of pulmonary embolism but was concerning for right-sided pneumonia. Patient was started antibiotics in the emergency department. The underlying pneumonia could be the etiology for the patient's hemoptysis. Patient was updated the results of the workup and plan for treatment and discharged home. Differential Diagnosis Differential Diagnosis: Pneumonia, pulmonary embolism, hemoptysis Vital Signs Vital Signs: Vital Signs Temperature 98.1 F 11/19/24 17:29 Pulse Rate 80 11/19/24 17:29 Respiratory Rate 17 11/19/24 17:29 Blood Pressure 158/86 H 11/19/24 17:29 Pulse Oximetry 98 11/19/24 17:29 Oxygen Delivery Room Air 11/19/24 17:29 Temperature 98.1 F 11/19/24 17:29 Pulse Rate 80 11/19/24 21:22 Respiratory Rate 15 11/19/24 21:22 Blood Pressure 140/90 11/19/24 21:22 Pulse Oximetry 100 11/19/24 21:22 Oxygen Delivery Room Air 11/19/24 18:38 Lab Data 11/19/24 18:43 11/19/24 18:43 Labs: Lab Results 11/19/24 Range/Units 18:43 WBC 4.6 (4.5-10.0) K/mm3 RBC 4.78 (4.2-5.4) M/mm3 Hgb 12.6 (12.0-15.0) g/dL Hct 39.4 (37.0-47.0) % MCV 82.4 (80-100) fl MCH 26.4 (26-34) pg MCHC 32.0 (32-36) g/dl RDW 14.0 (11.5-14.5) % Plt Count 245 (150-375) k/mm3 MPV 9.5 (7.4-10.4) fl Immature Gran % (Auto) 0.2 (0-0.5) % Neut % (Auto) 62.5 (45.5-73.1) % Lymph % (Auto) 23.0 (18.3-44.2) % [place] % (Auto) 10.9 H (2.6-8.5) % Eos % (Auto) 3.0 (0-4.4) % Baso % (Auto) 0.4 (0.2-1.2) % Lymph # (Auto) 1.06 (0.9-3.2) K/mm3 [place] # (Auto) 0.5 (0.1-0.6) K/mm3 Eos # (Auto) 0.1 (0-0.3) K/mm3 Baso # (Auto) 0.0 (0.0-0.1) K/mm3 Abs Immat Gran (auto) 0.01 (0.00-0.031) K/mm3 Absolute Neuts (auto) 2.9 (1.3-6.7) K/mm3 Absolute Nucleated RBC 0.000 (0.0-0.012) K/mm3 Nucleated RBC % 0.0 (0.0-0.2) % PT 15.0 H (11.1-14.7) Seconds INR 1.2 APTT 28.2 (22.3-36.8) Seconds Sodium 139 (137-145) mmol/L Potassium 3.7 (3.4-5.0) mmol/L Chloride 105 (98-107) mmol/L Carbon Dioxide 24 (22-30) mmol/L Anion Gap 10 (4-12) mmol/L BUN 14 (7-17) mg/dL Creatinine 0.92 (0.7-1.0) mg/dL Estim Creat Clear Calc 63 ml/min Estimated GFR 60 (59 - ) Glucose 80 (65-110) mg/dL Calcium 8.9 (8.4-10.2) mg/dL Total Bilirubin 0.4 (0.2-1.3) mg/dL AST 29 (14-36) U/L ALT 18 (6-35) U/L Alkaline Phosphatase 183 H (38-126) U/L Troponin I < 0.012 (0.000-0.034) ng/mL Total Protein 8.0 (6.3-8.2) g/dL Albumin 4.2 (3.5-5.1) g/dL Lipase 38 (23-300) U/L Discharge Plan Discharge Clinical Impression: Hemoptysis, Pneumonia Patient Disposition: Home Condition: Stable Instructions: Antibiotic Form, Coughing Up Blood (Hemoptysis) (ED), Pneumonia (ED) Additional Instructions: Antibiotic as directed until completed. Have close follow-up with your primary care physician. If you have any worsening symptoms please call or return to the emergency department Patient Language: Divehi Prescriptions: New doxycycline hyclate 100 mg capsule 100 mg PO Q12H 7 Days Qty: 14 0RF azithromycin 250 mg tablet See Rx Instructions PO .COMPLEX Qty: 6 0RF Rx Instructions: For 250 mg dose pack: take 500 mg today (day 1), then 250 mg for 4 days (days 2-5) No Action losartan 50 mg tablet 50 mg PO ONCE metformin 500 mg tablet 500 mg PO BID levothyroxine 175 mcg tablet 175 mcg PO DAILY atorvastatin 20 mg tablet 20 mg PO DAILY carvedilol 12.5 mg tablet 12.5 mg PO BID losartan 25 mg tablet 25 mg PO DAILY hydrochlorothiazide 12.5 mg capsule 12.5 mg PO DAILY albuterol sulfate 90 mcg/actuation HFA aerosol inhaler inhalation bupropion HCl 300 mg tablet extended release 24 hr 300 mg PO .twic bupropion HCl 150 mg tablet extended release 24 hr 150 mg PO DAILY Eliquis 5 mg tablet 5 mg PO BID meclizine 25 mg tablet 25 mg PO BID PRN (Reason: dizziness) Qty: 30 0RF Follow-up/Referrals: Scooter,KAYLA Felipe [Primary Care Provider] -
[2024-11-19] MEDS: AZITHROMYCIN 250 MG TABLET 500 MG PO (21:14)
[2024-11-19] MEDS: DOXYCYCLINE HYCLATE 100 MG TABLET PO (21:15)
[2024-11-19 21:22] VITALS: BP 140/90; PULSE 80; RESP 15; O2SAT 100
== END 2024-11-19 21:23 | disposition home or self-care (01) ==
PROVIDERS: Emergency Provider Emergency Medicine; PCP Physician Assistant
DX: J18.9 Pneumonia, unspecified organism (principal); R04.2 Hemoptysis; Z79.84 Long term (current) use of oral hypoglycemic drugs; Z79.899 Other long term (current) drug therapy; Z79.01 Long term (current) use of anticoagulants; R94.31 Abnormal electrocardiogram [ECG] [EKG]
CPT/HCPCS: 36415; 71046; 71275; 80053; 83690; 84484; 85025; 85610; 85730; 93005; 99284; A9270; Q9967

== ENCOUNTER 2025-06-08 09:59 | Outpatient (CLI) | payer OTHER, SELFPAY ==
--- NOTE | 2025-06-08 10:07 | ECHO_ITS ---
Patient Info Name: Yandy Bustamante Age: 69 years : 1955 Gender: Female Ht: 65 in Wt: 272 lbs BSA: 2.45 m2 HR: 72 bpm BP: 156 / 93 mmHg Technical Quality: Good Exam Date: 06/08/2025 10:10 AM Patient Status: O Admit Date: 06/08/2025 Exam Type: CA echo doppler color flow Complete two-dimensional, color flow and Doppler transthoracic echocardiogram is performed. Seed Trucker: Sangeeta Espinosa Attending Provider: Can Gao DO Summary 1. Complete two-dimensional, color flow and Doppler transthoracic echocardiogram is performed. 2. Left ventricular chamber dimension is normal. 3. Left ventricular systolic function is normal, estimated at 65-70. 4. The left ventricular diastolic function is grade II diastolic dysfunction. 5. E/e' 11 is mildly elevated. 6. There is trace mitral valve regurgitation. 7. There is trace tricuspid valve regurgitation. 8. No pulmonary hypertension, estimated pulmonary arterial systolic pressure is 32 mmHg. Left Ventricle E/e' 11 is mildly elevated. Left ventricular chamber dimension is normal. Left ventricular systolic function is normal, estimated at 65-70. The left ventricular diastolic function is grade II diastolic dysfunction. Right Ventricle Right ventricular chamber dimension is normal. Right ventricular systolic function is normal and with normal TAPSE 2.5 cm. Left Atria Left atrial chamber dimension is normal. Right Atria Right atrial chamber dimension is normal. Aortic Valve The aortic valve is trileaflet. There is no aortic valve stenosis. There is no aortic valve regurgitation. Pulmonic Valve There is no pulmonic regurgitation. Mitral Valve There is no mitral valve stenosis. There is trace mitral valve regurgitation. Tricuspid Valve There is trace tricuspid valve regurgitation. No pulmonary hypertension, estimated pulmonary arterial systolic pressure is 32 mmHg. Pericardium/Pleural There is no pericardial effusion. Inferior Vena Cava Normal inferior vena cava with >50% collapse upon inspiration consistent with normal right atrial pressure, 5 mmHg. Aorta The aortic root size at the sinus of Valsalva is normal. Left Ventricular Outflow Tract Name Value Normal LVOT 2D LVOT Diameter 2.0 cm LVOT Doppler LVOT Peak Velocity 120 cm/s LVOT Peak Gradient 6 mmHg LVOT Mean Gradient 3 mmHg LVOT VTI 26 cm LVOT VTI/AV VTI Ratio 0.9 LVOT Stroke Volume 87 ml LVOT CO 6.5 l/min LVOT CI 2.6 l/min/m2 Pulmonic Valve Name Value Normal RVOT Doppler RVOT Peak Velocity 77 cm/s RVOT Peak Gradient 2 mmHg PV Doppler PV Peak Velocity 101 cm/s PV Peak Gradient 4 mmHg Mitral Valve Name Value Normal MV Diastolic Function MV E Peak Velocity 103 cm/s MV A Peak Velocity 99 cm/s MV E/A 1.0 MV Decel Time (PW) 183 ms Tricuspid Valve Name Value Normal TV Regurgitation Doppler TR Peak Velocity 260 cm/s TR Peak Gradient 27 mmHg Estimated PAP/RSVP RA Pressure 5 mmHg <=5 PA Systolic Pressure 32 mmHg <36 RV Systolic Pressure 32 mmHg <36 TV Annular TDI TV Lateral Ely s' Velocity 14.9 cm/s >=9.5 Aorta Name Value Normal Ascending Aorta Ao Root Diameter (MM) 2.9 cm Ao Root Diam Index (MM) 1.2 cm/m2 Aortic Valve Name Value Normal AV Doppler AV Peak Velocity 140 cm/s AV Peak Gradient 8 mmHg AV Mean Gradient 4 mmHg AV VTI 29 cm AV Area (Cont Eq VTI) 3.0 cm2 >=3.0 AV Area (Cont Eq Luciano) 2.8 cm2 AV DI (Luciano) 0.86 AV Regurgitation 2D LVOT Area 3.3 cm2 Ventricles Name Value Normal LV Dimensions 2D/MM IVS Diastolic Thickness (2D) 0.6 cm 0.6-1.0 IVS Diastole Thickness (MM) 0.9 cm 0.6-0.9 LVID Diastole (2D) 3.9 cm 3.8-5.2 LVID Diastole (MM) 5.1 cm 3.8-5.2 LVIW Diastolic Thickness (2D) 1.0 cm 0.6-0.9 LVIW Diastolic Thickness (MM) 1.0 cm 0.6-0.9 LVID Systole (2D) 2.4 cm 2.2-3.5 LVID Systole (MM) 2.7 cm 2.2-3.5 LVOT Diameter 2.0 cm LV Mass (2D Cubed) 89.88 g 67.00-162.00 LV Mass Index (2D Cubed) 37 g/m2 43-95 Relative Wall Thickness (2D) 0.49 <=0.42 LV Mass (MM Cubed) 176.63 g 67.00-162.00 LV Mass Index (MM Cubed) 72 g/m2 43-95 Relative Wall Thickness (MM) 0.38 LV Fractional Shortening/Ejection Fraction 2D/MM LV Fractional Shortening (2D) 39 % 27-45 LV Fractional Shortening (MM) 47 % 27-45 LV EF (MM Teichholz) 78 % LV EF (2D Teichholz) 70 % LV Diastolic Volume (4C MOD) 80 ml LV EF (4C MOD) 71 % LV Diastolic Volume (2C MOD) 85 ml LV EF (2C MOD) 74 % LV Diastolic Volume (BP MOD) 84 ml 46-106 LV Diastolic Volume Index (BP MOD) 34 ml/m2 29-61 LV Systolic Volume (BP MOD) 24 ml 14-42 LV Systolic Volume Index (BP MOD) 10 ml/m2 8-24 LV EF (BP MOD) 72 % 54-74 LV Diastolic Length (4C) 7.6 cm LV Systolic Length (4C) 6.4 cm LV Stroke Volume (4C MOD) 56 ml Atria Name Value Normal LA Dimensions LA Dimension (MM) 3.2 cm 2.7-3.8 Report Signatures
== END 2025-06-08 10:00 | disposition home or self-care (01) ==
LOC: ANHCARD 10:03
PROVIDERS: PCP Physician Assistant; Visit Provider Internal Medicine Cardiovascular Disease
DX: R93.1 Abnormal findings on diagnostic imaging of heart and coronary circulation (principal); R06.09 Other forms of dyspnea
CPT/HCPCS: 93306

== ENCOUNTER 2025-07-07 08:10 | Outpatient (CLI) | payer OTHER, SELFPAY ==
--- NOTE | ~2025-07-07 | NM_ITS ---
EXAMINATION: NM josef stress w perfusion DATE: 07/07/2025 12:29 INDICATION: Encounter for preprocedural cardiovascular exam TECHNIQUE: Rest images were obtained following intravenous administration of 11.9 mCi Tc99m tetrofosmin (Myoview). The patient was infused intravenously with Lexiscan (Regadenoson). Then, 34.5 mCi Tc99m tetrofosmin (Myoview) was administered intravenously, and stress images were obtained. Data was lynda nstructed into short axis and horizontal and vertical long axis SPECT images. Gated SPECT images were also obtained. COMPARISON: None. FINDINGS: Perfusion defect on the post stress imaging involving the mid inferior segment extending partially into the basilar inferior and apical inferior segments. The majority is nonreversible consistent with infarct with reversibility in the apical inferior segment which be consistent with ischemia. Differential for the perfusion defects along the inferior wall would include diaphragmatic attenuation artifact. There is normal left ventricular chamber size, wall motion and ejection fraction. Left ventricular ejection fraction measures >70%. IMPRESSION: 1. Mild reversible ischemia at the apical inferior segment with nonreversible mild infarct at the mid inferior and basilar inferior segments. Differential would include diaphragmatic attenuation artifact. 2. Left ventricular ejection fraction measuring >70%. Reviewed, dictated and finalized at location A. ODS TIME ANALYST IMPRESSION: 1. Mild reversible ischemia at the apical inferior segment with nonreversible m ild infarct at the mid inferior and basilar inferior segments. Differential wou ld include diaphragmatic attenuation artifact. 2. Left ventricular ejection fraction measuring >70%.
--- OUTSIDE RECORDS SUMMARY | 2025-07-07 08:25 | XMS_ITS | Clinical Summary ---
Author Organization [facility] Address [facility] [place] [address] Care Team Providers Care Rn Mobile Name Role Phone Leandra Helms PA-C Primary Care Provider Allergies Active Allergy Reactions Criticality Noted Date Comments Egg Protein-Containing Drug Products Other (see comment) 10/10/2021 Egg allergy Influenza Vaccines Other (see comment) [...] by mouth 2 (two) times daily. 07/21/20 21 Active omeprazole 40 MG capsule omeprazole 40 mg capsule,delayed release 03/28/20 21 Active iron polysaccharides 150 MG capsule Take by mouth daily. 09/27/19 22 Active Blood Glucose Monitoring Suppl (ONE TOUCH ULTRA 2) w/Device Kit USE TO TEST TWICE DAILY 11/18/19 21 Active OptonyTOUCH ULTRA test strip 2 (two) times daily. [...] 3:43 PM CDT Height 170.2 cm (5' 7) 10/02/2021 3:43 PM CDT Body Mass Index 45.73 10/02/2021 3:43 PM CDT Plan of Treatment Health Maintenance Due Date Last Done Comments Hepatitis C 10/16/1971 DTaP, Tdap and Td Vaccines ( 1 - Tdap) 1972 Mammogram Screening 1993 Zoster Vaccines (1 of 2) 10/16/2003 Annual Medicare Wellness Visit 2018 Dexa Scan (General) 2018 COVID-19 Vaccine (2024-2 6 season) 2025 09/26/2021, 02/15/2021, 01/17/2021 Influenza Adult (#1) 2025 05/05/2020, 05/07/2019 RSV Immunization or 60+ Years (1 - 1-dose 75+ series) 2028 Colorectal Cancer Screening Colonoscopy (10 Years) 10/11/2031 10/10/2021, 10/10/2021 Pneumococcal Vaccine: 50+ Years Completed 09/04/2021, 11/27/2018 Hepatitis A Vaccines Aged Out No long er eligible based on patient's age to complete this topic Meningococcal B Vaccine Aged Out No l [...] Results * Colonoscopy (10/10/2021 12:19 PM CDT) Narrative Jay Mora MD - 10/10/2021 12:19 PM CDT Jay Mora MD 10/10/2021 12:27 PM JAY MORA MD, FACG, FACP COLONOSCOPY and EGD 10/10/2021 EGD INDICATION: Abnormal imaging-digestive, iron deficiency anemia. POST-OP: 10 cm hiatal hernia with Miguel erosions. SEDATION: Per Anesthesia With the patient in the left lateral decubitus position, the Olympus [id number] endoscope was used to easily intubate the [...] the left lateral decubitus position, the Olympus [id number] colonoscope was introduced into the rectum and [...] Most Recently Relevant to Health Maintenance Insurance [facility] Care Teams Rn Mobile Relationship Specialty Start Date End Date Leandra Helms PA-C [address] [place], [place] [phone] PCP - General NURSE PRACTITIONER 10/10/21
--- OUTSIDE RECORDS SUMMARY | 2025-07-07 08:25 | XMS_ITS | Encounter Summary ---
Author Organization [facility] Address [address] [facility] [place] [address] Care Team Providers Care Fertilizer Loader Name Role Phone Leandra Helms PA-C Primary Care Provider Encounter Details Date Type Department Care Team (Late st Contact Info) Description 02/05/2024 Telephone [facility] - Centralized Scheduling [address] [place] [address] Kathy Lopez MD [address] [address] Social History Tobacco Use Types Packs/Day Years Used Date Smoking Tobacco: Former Cigarettes Smokeless Tobacco: Never PHQ-2 Answer Date Recorded PHQ2 TOTAL SCORE 0 07/19/2021 Comments No Sex and Gender Information Value Date Recorded Sex Assigned at Not on file Legal Sex Female 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 Gender Identity Not on file Sexual Orientation Not on file documented as of this encounter Plan of Treatment Upcoming Encounters Date Type Department Care Team (Late Contact Info) Description 11/03/2025 10:30 AM CDT Office Visit [facility] - Pulmonology [address] [facility], [place] [phone] Jo Carrillo DO [address] [place] [address] DIV OF [facility] [place] [address] documented as of this encounter Visit Diagnoses Not on filedocumented in this encounter Care Teams Fertilizer Loader Relationship Specialty Start Date End Date Leandra Helms PA-C [address] [place] [phone] PCP - General 05/31/21 documented as of this encounter
--- OUTSIDE RECORDS SUMMARY | 2025-07-07 08:25 | XMS_ITS ---
Author Organization [facility] [address] Address [address] [place] [address] Phone Care Team Providers Care Customer Advocacy Manager Name Role Phone Leandra Helms Primary Care [...]
--- OUTSIDE RECORDS SUMMARY | 2025-07-07 08:25 | XMS_ITS | Clinical Summary ---
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 3 Active acetaminophen [...] Hx Other Medical hiatal hernia Bipolar disorder GERD (gastroesophageal reflux disease) Type 2 diabetes mellitus Chronic kidney disease Arthritis COPD (chronic obstructive pulmonary disease) Pulmonary embolism Joint pain Vitamin D deficiency Schizo affective [...] on file Legal Sex Female 12:10 AM ACCOUNT EXECUTIVE HEALTHCARE Gender Identity Female 01/24/2022 3:03 PM CDT [...] 8:17 AM CDT Height 163.8 cm (5' 4.5) 01/17/2024 8:17 AM CDT Body Mass Index [...] Hemoglobin A1C 07/31/2023 01/28/2023 eGFR 01/29/2024 01/28/2023 Lipid Panel 05/24/2024 05/24/2023, 01/19, 04/30/2022, Additional history exists Fall Risk Assessment 11/19/2024 11/20/2023 Covid-19 Vaccine (3 - 2024-2 6 season) 2025 02/15/2021, 01/17/2021 Influenza Vaccine (#1) 2025 Colon Cancer Screening-CT Colonography Discontinued 08/27/2012 Colon [...] LAB BLOOD ORDERABLES Final Result [facility]A [id number] [facility] [address] * Hemoglobin A1c (01/28/2023 11:10 [...] and children were not included. (Diabetes Care 31:0042-8578, 2008). The eAG is not equivalent to a fasting glucose. Blood 01/28/2023 11:1 0 AM CDT 01/28/2023 11:24 AM CDT us Mojgan Morrison NP LAB BLOOD ORDERABLES Final Result [facility] [id number] [facility]. [place] [address] * Lipid panel (01/28/2023 11:10 AM CDT) [...] 0 AM CDT 01/28/2023 11:24 AM CDT Mojgan Morrison NP LAB BLOOD ORDERABLES Edited Result - Final [facility] [id number] [facility]. Department of Laboratories [place], [place] [id number] * COLONOSCOPY REPORT (08/27/2012) Anatomical Region Laterality Modality Other Narrative 08/27/2012 Ordered by an unspecified provider. us Historical Provider GI PROCEDURE ORDERABLES F inal Result from Last 3 Months or Most Recently Relevant to Health Maintenance Insurance [facility] [id number] [place] [address] Advance Directives For more information, please contact: [phone] * Full Code (Latest Code Status on File) Date Activated Date Inactivated Comments 11/19/2023 5:04 PM 11/20/2023 3:21 PM Care Teams Web Manager Relationship Specialty Start Date End Date Leandra Helms PA PCP - General Physician Executive Assistant 03/16/22
--- OUTSIDE RECORDS SUMMARY | 2025-07-07 08:25 | XMS_ITS | Clinical Summary ---
Author Organization [facility] Address [address], [place] [address] Phone Care Team Providers Care Online Marketing Director Name Role Phone Leandra Helms Primary Care Provider [phone] Social History Tobacco Use Types Packs/Day Years [...] / Low and Medium Risk (1 of 2 - PCV) 10/16/2003 Influenza Vaccine (#1) 2025 Care Teams Online Marketing Director Relationship Specialty Start Date End Date Leandra Helms PA [address] [place] [phone] PCP - General Family Medicine 06/01/21
--- OUTSIDE RECORDS SUMMARY | 2025-07-07 08:25 | XMS_ITS | Clinical Summary ---
Author Organization [facility] Address [address] [place] [address] Phone Care Team Providers Care Filters Assembler Name Role Phone Hung Casillas MD Unavailable Provider, None Primary Care Provider Unavailabl e Allergies Active Allergy Reactions Criticality Noted Date Comments Egg Protein-Containing Drug Products Rash 06/20/2017 Influenza Vaccines Other (see [...] A M CDT Height 170.2 cm (5' 7) 03/19/2019 10:56 AM CDT Body Mass Index 48.33 03/19/2019 10:56 AM CDT Plan of Treatment Health Maintenance Due Date Last Done Comments Hepatitis C Virus (HCV) Screening 1955 TdaP Immunization 1955 Cologuard 1998 Immunochemical Fecal Occult Blood 1998 Respiratory Syncytial Virus (RSV) Immunization (Adult) (1 - Risk 50-74 years 1-dose series) 10/16/2003 Zoster Immunization (1 of 2) 10/16/2003 Pneumococcal Immunization (50+ years) (2 of 2 - PPSV23, PCV20, or PCV21) 01/22/2019 11/27/2018 Colonoscopy 01/09/2024 01/08/2019, 12/20/2017 Colorectal Cancer Screening 01/09/2024 SARS-COV-2 Immunization ( season) 2025 01/26/2022, 09/26/2021, 02/15/2021, Additional history exists Pneumococcal Immunization Combined Discontinued 11/27/2018 Mammogram Discontinued 01/27/2019, 10/02/2017 Hepatitis B Immunization Aged Out No longer eligible based on patient's age to complete this topic Human Papillomavirus (HPV) Immunization (No Doses Required) Completed Meningococcal Immunization (ACWY) Aged Out No longer eligible based on patient's age to complete this topic Rotavirus Immunization Aged Out No lo nger eligible based on patient's age to complete this topic Medical Devices Implanted Type Area Public Employment Mediator Device Identifier Shelf Expiration Date Model / Serial / Lot Agent Hemostatic Surgiflo Evithrom Gelatin Topical Kit Ndl Free Vial Adpr Multibend Flextip 8mlstrl - [id number] Implanted:Qty: 1 on 05/07/2018 by [facility] IMPLANT Left: Knee [employer] 09/19/2019 2994 / [id number] / [id number] Knee Femoral Component Beaded With Pa Cementless Cruciate Retaining Triathlon Left Size 5 - [id number] Implanted:Qty: 1 on 05/07/2018 by [facility] IMPLANT Left: Knee [employer] 06/27/2022 [id number] / [id number] / [id number] Component Patellar 40mm Bead Triathlon Fabienne-Apatite Knee - [id number] Implanted:Qty: 1 on 05/07/2018 by [facility] IMPLANT Left: Knee [employer] 04/20/2019 [id number] / [id number]-401 / [id number] Triathlon Tritanium Tibial Compnent Implanted:Qty: 1 on 05/07/2018 by [facility] at [facility] Left: Knee ARLETTE / ORTHOPAEDICS 11/18/2022 [id number] / [id number] / [id number] Triathlon Tibial Bearing Insert Implanted:Qty: 1 on 05/07/2018 by Krishna Hernandez MD at [facility] Left: Knee [employer]LE[employer] / ORTHOPAEDICS 10/20/2019 [id number] / [id number] / [id number] Procedures Procedure Name Priority Date/Time Associated Diagnosis [...] Comparison is made to exams dated: 10/02/2017 [facility], 04/20/2016, and 01/12/2015 [facility]. BREAST TISSUE:The tissue of both breasts [...] exam. Electronically signed by: Macrina zayas/nuria:01/27/2019 16:17:13 Tester Rocket Engine: Aretha ZHONG)(Tom), [facility] letter sent: Normal Exam Reading location: GANN BI-RADS: 1 Negative Procedure Note Macrina Scott [...] Comparison is made [facility], and [facility]. BREAST TISSUE:The tissue of both breasts [...] next screening exam. Electronically signed by: Macrina zaysa/nuria:01/27/2019 16:17:13 Tester Rocket Engine: Aretha CHAN(R)(M), [facility] letter sent: Normal Exam Reading location: GANN BI-RADS: 1 Negative us Radha Pinto MD IMG MAMMO ORDERABLES Final R esult from Last 3 Months or Most Recently Relevant to [place] [address] MEDICAID [facility] [employer] Advance Directives Documents on File Type Date Recorded Patient Javascript Engineer Expl anation Power of Kettle Hand for Health Care 05/12/2018 7:52 AM POA-HC * Full Code (Latest Code Status on File) Date Activated Date Inactivated Comments 06/13/2018 11:11 PM 01/08/2019 6:36 AM Care Teams Filters Assembler Relationship Specialty Start Date End Date Provider, None [place] PCP - General 07/30/19 Hung Casillas MD Obstetrics & Gynecology 05/29/18
--- OUTSIDE RECORDS SUMMARY | 2025-07-07 08:25 | XMS_ITS | Encounter Summary ---
Author Organization [facility] Address [address] [facility] [place] [address] Care Team Providers Care Acute Care Nursing Assistant Name Role Phone Leandra Helms PA-C Primary Care Provider Encounter Details Date Type Department Care Team (Late st Contact Info) Description 04/04/2022 Telephone [facility], Critical Care and Sleep Medicine [address] [facility] [place] [phone] Kathy Lopez MD [address] [place] [address] Social History Tobacco Use Types Packs/Day Years Used Date Smoking Tobacco: Former Cigarettes Smokeless Tobacco: Never PHQ-2 Answer Date Recorded PHQ2 TOTAL SCORE 0 07/19/2021 Comments Unknown Sex and Gender Information Value Date Recorded Sex Assigned at Not on file 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 Lopez Reason for call: Just an FYI Ms. Yandy Bustamante won't make today's appt, her transportation did not show. I didn't touch because I know the charts are done. She's reschedled. Patient Call Back number: [phone] documented in this encounter Plan of Treatment Upcoming Encounters Date Type Department Care Team (Late st Contact Info) Description 11/03/2025 10:30 AM CDT Office Visit [facility] - Pulmonology [address] [facility] [place] [address] Jo Carrillo, DO [address] DIV OF [facility] [place] [address] documented as of this encounter Visit Diagnoses Not on filedocumented in this encounter Care Teams Acute Care Nursing Assistant Relationship Specialty Start Date End Date Leandra Helms PA-C [address] [place] [phone] PCP - General 05/31/21 documented as of this encounter
--- OUTSIDE RECORDS SUMMARY | 2025-07-07 08:25 | XMS_ITS | Clinical Summary ---
Author Organization [facility] Address [address] [place] [address] Care Team Providers Care Predictive Maintenance Technician Name Role Phone Leandra Helms PA-C Primary Care Provider Source Comments [facility],non-owned Affiliates and Associated Physician Practices is amultiple site organization consisting of ambulatory clinics and hospital sitesin [place], [place], [place] and [place]. This disclosure is being madepursuant to the Care Everywhere program and may not contain all information available regarding this patient. Last updated 18.[facility] Allergies Active Allergy Reactions Criticality Noted Date Comments Brassica Oleracea Vomiting High 07/19/2021 Codeine Nausea and/or Vomiting [...] mouth 4 times daily as needed Active aspirin buffered (BUFFERIN LOW DOSE) 81 [...] 12.5 mg by mouth once daily Active hydroCHLOROthiaz alphonso (MICROZIDE) 12.5 MG capsule Take 1 (one) [...] tablet by mouth once daily 2 Active apixaban (Eliquis) 5 MG tabletIndication s:History of pulmonary embolism Take 1 (one) tablet by mouth 2 times daily 62 tablet 3 5 Active budesonide-formo terol (Symbicort) 80-4.5 MCG/ACT inhalerIndicatio ns:Mild persistent asthma without complication (HCC) Inhale 2 (two) puffs by mouth 2 times daily as needed 10.2 g 11 10/15/202 5 Active Eliquis 5 MG tabletIndication s:History of pulmonary embolism Take 1 (one) tablet by mouth 2 times daily 62 tablet 3 5 Active Active Problems Problem Noted Date Diagnosed Date Obstructive sleep apnea syndrome 12/03/2022 Overview (11/11/2024): Unable to tolerate CPAP. Stage 3a chronic kidney disease 08/29/2021 Diabetes mellitus 08/28/2021 Gastroesophageal reflux disease 08/28/2021 nursing home current use of anticoagulant therapy 0 08/02/2021 Anemia 01/12/2021 Hiatus hernia with obstruction 01/12/2021 Status post thyroidectomy 12/21/2020 Hx of transient ischemic attack (TIA) 11/27/2018 History of left breast cancer 08/29/2017 Bipolar I disorder 06/20/2017 Generalized anxiety disorder 06/20/2017 Essential (primary) hypertension 06/20/2017 Obesity 06/20/2017 Asthma 08/02/2016 Acquired hypothyroidism 08/02/2016 Hyperlipidemia, unspecified 08/06/2012 Encounters Date Type Department Care Team Description 06/18/2025 Telephone [facility] - Pulmonology [address] [place] [phone] Jo Carrlilo DO Medication Prior Auth Request 06/16/2025 Refill [facility] - Pulmonology [address] [place] [phone] Jo Carrillo, DO MEDICATION REFILL 05/14/2025 Telephone [facility] - Pulmonology [address] [place] [phone] Jo Carrillo, DO Medication Issue 05/05/2025 10:30 AM CDT Office Visit [facility] - Pulmonology [address] [place] [phone] Jo Carrillo, DO History of pulmonary embolism (Primary Dx); Mild persistent asthma without complication (HCC) 05/05/2025 Travel from Last 3 Months Immunizations Immunization [...] on file Legal Sex Female 4:23 AM NURSING HOME ADMISSIONS DIRECTOR Gender Identity Not on file Sexual Orientation Not on file Last Filed Vital Signs Vital Sign Reading Time Taken Comments Blood Pressure 112/72 05/05/2025 10:25 AM CDT Pulse 60 05/05/2025 10:25 AM CDT Temperature 36.7 C (98 F) 11/11/2024 8:39 AM CDT Respiratory Rate 17 05/05/2025 10:25 AM CDT Oxygen Saturation 95% 05/05/2025 10:25 AM CDT Inhaled Oxygen Concentration - - Weight 123.4 kg (272 lb) 05/05/2025 10:25 AM CDT Height 165.1 cm (5' 5) 05/05/2025 10:25 AM CDT Body Mass Index 45.26 05/05/2025 10:25 AM CDT Plan of Treatment Upcoming Encounters Date Type Department Care Team (Late st Contact Info) Description 11/03/2025 10:30 AM CDT Office Visit [facility] - Pulmonology [address] [place] [address], [place] [phone] Jo Carrillo, DO [address] [place] [address] [place] [address] Health Maintenance Due Date Last Done Comments BONE DENSITY TESTING 1955 COLOGUARD (AGES 45-75) - COL ON CA SCREENING 1955 COLON MONITORING 1955 COLONOSCOPY - COLON CA SCREENING 1955 CT COLONOGRAPHY - COLON CA SCREENING 1955 Colorectal Cancer Screening 1955 FIT - COLON CA SCREENING 1955 FLEX SIG - COLON CA SCREENING 1955 HEPATITIS C SCREENING 10/11/1971 DIABETES-SERUM CREATININE 10/16/1971 DTAP/TDAP/TD VACCINES (1 - Tdap) 1972 Respiratory Syncytial Virus (RSV) Vaccine Pt: or over 60 yrs (1 - Risk 50-74 years 1-dose series) 10/16/2003 ZOSTER VACCINE (1 of 2) 10/16/2003 MAMMOGRAM 01/27/2021 01/27/2019, 01/27/2019, 10/02/2017 DIABETES - URINE PROTEIN SCREENING 07/22/2024 DIABETES RETINOPATHY SCREENING 11/11/2024 DIABETES-FOOT EXAM WITH MONOFILAMENT 11/11/2024 DIABETES-HGB A1C 11/11/2024 COVID-19 VACCINE ( - 2024-2 6 season) 2025 INFLUENZA VACCINE (#1) 2025 1, 05/05/2020 PNEUMOCOCCAL VACCINE 50+ Completed 025, 11/27/2018 [...] patient's age to complete this topic Insurance [address] [place] [id number] [place] [address] [facility] Care Teams Predictive Maintenance Technician Relationship Specialty Start Date End Date Leandra Helms PA-C [address] [place] [phone] PCP - General 05/31/21
--- OUTSIDE RECORDS SUMMARY | 2025-07-07 08:25 | XMS_ITS | Encounter Summary ---
Author Organization [facility] Address [address] [place] [address] Phone Care Team Providers Care Stone Cleaner Name Role Phone Hung Casillas MD Unavailable Provider, None Primary Care Provider Unavailabl e Reason for Visit * Reason Onset Date Comments Medication Refill 09/01/2020 Encounter Details Date Type Department Care Team (Late st Contact Info) Description 09/01/2020 Refill [facility] [address] [place], [place] [address] Radha Pinto MD [address] [place] [address] Medication Refill Social History Tobacco Use Types [...] Shanda Shukla RN - 09/02/2020 11:00 AM FUND ACCOUNTING MANAGER Refused as no longer under a provider care in this clinic. ACCOUNTING MANAGER documented in this encounter Plan of Treatment Not on file documented as of this encounter Visit Diagnoses Not on filedocumented in this encounter Additional Health Concerns Assessment Noted Time PHQ-9 Depression Total Score: 0 06/20/20 17 2:00 PM FUND ACCOUNTING MANAGER documented as of this encounter Care Teams Stone Cleaner Relationship Specialty Start Date End Date Provider, None [place] PCP - General 07/30/19 Hung Casillas MD Obstetrics & Gynecology 05/29/18 documented as of this encounter
--- OUTSIDE RECORDS SUMMARY | 2025-07-07 08:25 | XMS_ITS | Encounter Summary ---
Author Organization [facility] Address [address] [place] [address] Care Team Providers Care Soapstoner Name Role Phone Leandra Helms PA-C Primary Care Provider Encounter Details Date Type Department Care Team (Late st Contact Info) Description 06/15/2024 Telephone [facility] - Pulmonology [address] [facility], [facility] [place] [phone] Kathy Lopez MD [address] [place] [address] Social History Tobacco Use Types Packs/Day Years Used Date Smoking Tobacco: Former Cigarettes Smokeless Tobacco: Never PHQ-2 Answer Date Recorded PHQ2 TOTAL SCORE 0 07/19/2021 Comments No Sex and Gender Information Value Date Recorded Sex Assigned at Not on file Legal Sex Female 4:23 AM TRIBAL JUDGE Gender Identity Not on file Sexual Orientation [...] the office. Patient call back number is [phone] AL JUDGE documented in this encounter Plan of Treatment Upcoming Encounters Date Type Department Care Team (Late st Contact Info) Description 11/03/2025 10:30 AM CDT Office Visit [facility] - Pulmonology [address] [facility], [place] [address] Jo Carrillo, DO [facility] [facility] [address] DIV OF [facility] [place] [address] documented as of this encounter Visit Diagnoses Not on filedocumented in this encounter Care Teams Soapstoner Relationship Specialty Start Date End Date Leandra Helms PA-C [address] [place] [phone] PCP - General 05/31/21 documented as of this encounter
--- NOTE | 2025-07-07 09:01 | EST_ITS ---
Patient Info Name: Yandy Bustamante Age: 69 years : 1955 Gender: Female Ht: 64 in Wt: 272 lbs BSA: 2.43 m2 HR: 69 bpm BP: 127 / 83 mmHg Exam Date: 07/07/2025 9:01 AM Patient Status: O Admit Date: 07/07/2025 Exam Type: CA stress josef w NM A regadenoson stress test was performed. Staff Referring Physician: Can Gao DO Attending Provider: Can Gao DO Exercise Technologist: Yanique Torrez Exercise Physician: Can Gao DO Summary 1. 1. Negative lexiscan stress test for ischemic ST changes by ECG criteria. 2. 2. Stable hemodynamics throughout the test. 3. 3. Nuclear scan to follow and will be reported separately. Please correlate with it. 4. 4. Patient informed of the above results. Protocol: Lexiscan Stress ECG Details Stage: REST Duration (min): 0 min : 51 sec HR (bpm): 69 SBP (mmHg): 127 DBP (mmHg): 83 Stage: REST Duration (min): 4 min : 20 sec HR (bpm): 75 SBP (mmHg): 127 DBP (mmHg): 83 Stage: STAGE 1 Duration (min): 1 min : 0 sec HR (bpm): 99 SBP (mmHg): 103 DBP (mmHg): 69 Stage: RECOVERY Duration (min): 1 min : 0 sec HR (bpm): 93 SBP (mmHg): 103 DBP (mmHg): 69 Stage: RECOVERY Duration (min): 2 min : 0 sec HR (bpm): 89 SBP (mmHg): 103 DBP (mmHg): 69 Stage: RECOVERY Duration (min): 3 min : 0 sec HR (bpm): 87 SBP (mmHg): 107 DBP (mmHg): 67 Stage: RECOVERY Duration (min): 4 min : 0 sec HR (bpm): 88 SBP (mmHg): 107 DBP (mmHg): 67 Stage: RECOVERY Duration (min): 5 min : 0 sec HR (bpm): 89 SBP (mmHg): 113 DBP (mmHg): 67 Stage: RECOVERY Duration (min): 5 min : 3 sec HR (bpm): 88 SBP (mmHg): 113 DBP (mmHg): 67 Rest HR: 75 bpm Peak HR: 99 bpm Rest Sys BP: 127 mmHg Peak Sys BP: 113 mmHg Max Pred HR: 149 bpm % Max Pred HR: 66 % Target HR: 127 bpm Max RPP: 11,187 bpm*mmHg Termination Reason: Completed protocol Cardiac Symptoms: Shortness of breath Total Time: 1 min : 0 sec Rest Mtz BP: 83 mmHg Peak Mtz BP: 67 mmHg Total Dose: 0.4 mg Resting ECG Sinus rhythm. Stress ECG No ST changes. Arrhythmias None. Report Signatures
== END 2025-07-07 08:11 | disposition home or self-care (01) ==
PROVIDERS: PCP Physician Assistant; Visit Provider Internal Medicine Cardiovascular Disease
DX: Z01.810 Encounter for preprocedural cardiovascular examination (principal); I99.8 Other disorder of circulatory system
CPT/HCPCS: 78452; 93017; A9502; J2785